=== PATIENT | female | born 1975 | race Caucasian/White ===

== ENCOUNTER → 2019-09-30 09:44 | Outpatient (CLI) | payer OTHER, MEDICAID, SELFPAY ==
--- NOTE | 2019-09-30 | DI.MG.S_ITS ---
BILATERAL DIGITAL SCREENING MAMMOGRAM 3D/2D WITH CAD: 09/30/2019 CLINICAL: Baseline exam. Routine screening. No prior exams were available for comparison. There are scattered fibroglandular elements in both breasts. Current study was also evaluated with a Computer Aided Detection (CAD) system. There is an oval asymmetry with an obscured and circumscribed margin in the left breast posterior depth medial region seen on the craniocaudal view only. No other significant masses, calcifications, or other findings are seen in either breast. IMPRESSION: INCOMPLETE: NEEDS ADDITIONAL IMAGING EVALUATION The oval asymmetry in the left breast is indeterminate. Additional views with possible ultrasound are recommended. This exam was interpreted at Station ID: [id number]. NOTE: For mammograms, a report in lay terms will be sent to the patient. Approximately 15% of breast malignancies will not be visualized mammographically. In the management of a palpable breast mass, a negative mammogram must not discourage biopsy of a clinically suspicious lesion. Electronically Signed By: Kanika forbes/chely:09/30/2019 19:08:27 letter sent: Additional Imaging Needed ACR BI-RADS Category 0: Incomplete 3340F
== END ==
PROVIDERS: Family Provider Family Medicine; PCP Family Medicine; Visit Provider Family Medicine
DX: Z12.31 Encounter for screening mammogram for malignant neoplasm of breast (principal)
CPT/HCPCS: 77063; 77067

== ENCOUNTER → 2019-10-05 14:45 | Outpatient (CLI) | payer OTHER, MEDICAID, SELFPAY ==
[2019-10-05 16:46] LABS: Add Manual Diff / Slide Review NO; Basophils Absolute Auto 100 /uL (0-100); Basophils Percent Auto 0.5 % (0-2); Eosinophils Absolute Auto 400 /uL (0-450); Eosinophils Percent Auto 3.9 % (2-4); Hematocrit 43.1 % (36-46); Hemoglobin 14.7 g/dL (12.0-16.0); Lymphocytes Absolute Auto 2100 /uL (1100-4500); Lymphocytes Percent Auto 22.8 % (25-40); Mean Corpuscular HGB Conc 34.1 % (30-36); Mean Corpuscular Hemoglobin 31.3 PG (26-34); Mean Corpuscular Volume 91.8 fL (80-100); Monocytes Absolute Auto 500 /uL (0-900); Monocytes Percent Auto 5.5 % (3-14); Neutrophils Absolute Auto 6200 /uL (1500-7000); Neutrophils Percent Auto 67.3 % (50-75); Platelet Count 212 X10^3/uL (150-400); Red Cell Distribution Width 13.7 % (11.6-14.8); White Blood Cell Count 9.3 X10^3/uL (4.5-11.0)
[2019-10-05 16:56] LABS: Alanine Aminotransferase 18 IU/L (<35); Albumin 4.5 g/dL (3.5-5.0); Albumin Globulin Ratio 1.4 (1.0-2.8); Alkaline Phosphatase 65 U/L (38-126); Aspartate Aminotransferase 27 IU/L (14-36); BUN Creatinine Ratio 11.3 (6-22); Bilirubin Total 0.3 mg/dL (0.2-1.3); Blood Urea Nitrogen 9 mg/dL (7-17); Calcium 9.5 mg/dL (8.4-10.2); Carbon Dioxide 25 mmol/L (22-32); Chloride 103 mmol/L (98-107); Estimated Glomerular Filt Rate > 60.0 mL/min (>60); Globulin 3.3 g/dL (1.7-4.1); Glucose 93 mg/dL (70-100); HEMOLYSIS < 15 (0-50); Potassium 4.1 mmol/L (3.4-5.1); Sodium 139 mmol/L (137-145); Total Protein 7.8 g/dL (6.3-8.2)
[2019-10-05 17:12] LABS: Follicle Stimulating Hormone 5.19 mIU/mL; Luteinizing Hormone 3.92 mIU/mL
[2019-10-05 17:25] LABS: Bacteria Urine None Seen; RBC Urine None Seen (0-5/HPF)
[2019-10-05 17:26] LABS: Thyroid Stimulating Hormone 1.82 uIU/mL (0.47-4.68)
[2019-10-05 17:46] LABS: Appearance Urine UA CLEAR; Bilirubin Urine UA NEGATIVE (NEGATIVE); Color Urine UA YELLOW; Glucose Urine UA NEGATIVE (Negative); Ketones Urine UA NEGATIVE (NEGATIVE); Leukocyte Esterase Urine UA NEGATIVE (NEGATIVE); Nitrite Urine UA NEGATIVE (Negative); Occult Blood Urine UA NEGATIVE (Negative); Protein Urine UA NEGATIVE (Negative); Specific Gravity Urine UA <=1.005 (1.000-1.035); Urobilinogen Urine UA 0.2 E.U./dL (0.2)
[2019-10-05 18:01] LABS: Culture Indicated Urine Cult Not Indicated; Squamous Epithelial Cell Urine 0-1 /HPF (0-5/HPF); WBC Urine 0-1/HPF (0-5/HPF)
== END ==
PROVIDERS: Family Provider Family Medicine; PCP Family Medicine; Referring Provider Family Medicine; Visit Provider Family Medicine
DX: R53.83 Other fatigue (principal); R39.89 Other symptoms and signs involving the genitourinary system
CPT/HCPCS: 36415; 80053; 81001; 82533; 83001; 83002; 84146; 84443; 85025

== ENCOUNTER → 2019-10-14 10:02 | Outpatient (CLI) | payer OTHER, MEDICAID, SELFPAY ==
--- NOTE | 2019-10-14 | DI.MG.S_ITS ---
UNILATERAL LEFT DIGITAL DIAGNOSTIC MAMMOGRAM 3D/2D WITH ADDITIONAL VIEWS: 10/14/2019 CLINICAL: Additional evaluation requested from prior study. Comparison is made to exam dated: 09/30/2019 mammogram - [facility]. There are scattered fibroglandular elements in left breast. The asymmetry in the left breast posterior depth medial region seen on the craniocaudal view only is not seen in additional views. No other significant masses or calcifications are seen in the breast. IMPRESSION: There is no mammographic evidence of malignancy. A 1 year screening mammogram is recommended. This exam was interpreted at Station ID: [id number]. NOTE: For mammograms, a report in lay terms will be sent to the patient. Approximately 15% of breast malignancies will not be visualized mammographically. In the management of a palpable breast mass, a negative mammogram must not discourage biopsy of a clinically suspicious lesion. Electronically Signed By: Elsie Canada M.D. lk/:10/14/2019 10:31:09 letter sent: Normal Exam ACR BI-RADS Category 2: Benign Finding(s) 3342F
== END ==
PROVIDERS: Family Provider Family Medicine; PCP Family Medicine; Referring Provider Family Medicine; Visit Provider Family Medicine
DX: R92.8 Other abnormal and inconclusive findings on diagnostic imaging of breast (principal)
CPT/HCPCS: 77065; G0279

== ENCOUNTER → 2020-11-28 11:49 | Outpatient (CLI) | payer OTHER, MEDICAID, SELFPAY ==
--- NOTE | 2020-11-28 | DI.MG.S_ITS ---
BILATERAL DIGITAL SCREENING MAMMOGRAM 3D/2D WITH CAD: 11/28/2020 CLINICAL: Routine screening. Comparison is made to exams dated: 10/14/2019 mammogram and 09/30/2019 mammogram - . There are scattered fibroglandular elements in both breasts. Current study was also evaluated with a Computer Aided Detection (CAD) system. There is an oval equal density asymmetry with an obscured and circumscribed margin in the left breast posterior depth medial region seen on the craniocaudal view only. This is more prominent. No other significant masses, calcifications, or other findings are seen in either breast. IMPRESSION: INCOMPLETE: NEEDS ADDITIONAL IMAGING EVALUATION The oval equal density asymmetry in the left breast is indeterminate. Spot compression, cleavage, and lateromedial views as well as additional views with possible ultrasound are recommended. This exam was interpreted at Station ID: [id number]. NOTE: For mammograms, a report in lay terms will be sent to the patient. Approximately 15% of breast malignancies will not be visualized mammographically. In the management of a palpable breast mass, a negative mammogram must not discourage biopsy of a clinically suspicious lesion. Electronically Signed By: Gilmar Fischer M.D. ddvan/:11/28/2020 15:12:42 letter sent: Additional Imaging Needed ACR BI-RADS Category 0: Incomplete 3340F
== END ==
PROVIDERS: Family Provider Family Medicine; PCP Family Medicine; Referring Provider Family Medicine; Visit Provider Family Medicine
DX: Z12.31 Encounter for screening mammogram for malignant neoplasm of breast (principal)
CPT/HCPCS: 77063; 77067

== ENCOUNTER → 2020-12-05 09:35 | Outpatient (CLI) | payer OTHER, MEDICAID, SELFPAY ==
[2020-12-05 10:17] LABS: Hematocrit 40.1 % (36-46); Hemoglobin 13.3 g/dL (12.0-16.0); Mean Corpuscular HGB Conc 33.2 % (30-36); Mean Corpuscular Volume 93.3 fL (80-100); Platelet Count 177 X10^3/uL (150-400); Red Cell Distribution Width 13.4 % (11.6-14.8); White Blood Cell Count 8.7 X10^3/uL (4.5-11.0)
[2020-12-05 10:44] LABS: Alanine Aminotransferase 12 IU/L (<35); Albumin 3.8 g/dL (3.5-5.0); Albumin Globulin Ratio 1.3 (1.0-2.8); Alkaline Phosphatase 53 U/L (38-126); Aspartate Aminotransferase 22 IU/L (14-36); BUN Creatinine Ratio 13.3 (6-22); Bilirubin Total 0.2 mg/dL (0.2-1.3); Blood Urea Nitrogen 10 mg/dL (7-17); Calcium 8.6 mg/dL (8.4-10.2); Carbon Dioxide 25 mmol/L (22-32); Chloride 104 mmol/L (98-107); Estimated Glomerular Filt Rate > 60.0 mL/min (>60); Glucose 93 mg/dL (70-100); HEMOLYSIS < 15 (0-50); Potassium 3.6 mmol/L (3.4-5.1); Sodium 135 mmol/L (137-145); Total Protein 6.8 g/dL (6.3-8.2)
== END ==
PROVIDERS: Family Provider Family Medicine; PCP Family Medicine; Referring Provider Family Medicine; Visit Provider Family Medicine
DX: Z13.9 Encounter for screening, unspecified (principal)
CPT/HCPCS: 36415; 80053; 85027

== ENCOUNTER → 2020-12-19 09:19 | Outpatient (CLI) | payer OTHER, MEDICAID, SELFPAY ==
--- NOTE | 2020-12-19 | DI.MG.S_ITS ---
UNILATERAL LEFT DIGITAL DIAGNOSTIC MAMMOGRAM 3D/2D WITH ADDITIONAL VIEWS: 12/19/2020 CLINICAL: Additional evaluation requested from prior study. Comparison is made to exams dated: 11/28/2020 mammogram, 10/14/2019 mammogram, and 09/30/2019 mammogram - [facility]. There are scattered fibroglandular elements in left breast. There is an oval fat containing asymmetry with a circumscribed margin in the left breast posterior depth medial region seen on the craniocaudal view only. No other significant masses or calcifications are seen in the breast. IMPRESSION: INCOMPLETE: NEEDS ADDITIONAL IMAGING EVALUATION The oval fat containing asymmetry in the left breast has the appearance of the sternalis muscle with variable visualization on mammograms. A targeted ultrasound is recommended and will immediately follow. This exam was interpreted at Station ID: [id number]. NOTE: For mammograms, a report in lay terms will be sent to the patient. Approximately 15% of breast malignancies will not be visualized mammographically. In the management of a palpable breast mass, a negative mammogram must not discourage biopsy of a clinically suspicious lesion. Electronically Signed By: David Greene M.D. slc/:12/19/2020 10:41:44 ACR BI-RADS Category 0: Incomplete 3340F
--- NOTE | 2020-12-19 09:20 | DI.US.S_ITS ---
LIMITED ULTRASOUND OF LEFT BREAST: 12/19/2020 CLINICAL: Patient returns today to evaluate an asymmetry in left breast. Comparison is made to exams dated: 12/19/2020 mammogram, 11/28/2020 mammogram, 10/14/2019 mammogram, and 09/30/2019 mammogram - [facility]. Real-time ultrasound of the left breast 9 o'clock region was performed. Burnett scale images of the real-time examination were reviewed. No mass in the medial left breast. IMPRESSION: BENIGN There is no sonographic evidence of malignancy. No mass in the medial breast. Mammographic findings in keeping with the sternalis muscle, variant anatomy. A 1 year screening mammogram is recommended. Exam findings were conveyed to the patient. This exam was interpreted at Station ID: [id number]. Electronically Signed By: David Greene M.D. slc/:12/19/2020 11:09:14 letter sent: Normal Exam Ultrasound BI-RADS: 2 Benign
== END ==
PROVIDERS: Family Provider Family Medicine; PCP Family Medicine; Referring Provider Family Medicine; Visit Provider Family Medicine
DX: R92.8 Other abnormal and inconclusive findings on diagnostic imaging of breast (principal); N64.89 Other specified disorders of breast
CPT/HCPCS: 76642; 77065; G0279

== ENCOUNTER → 2021-10-17 10:36 | Outpatient (CLI) | payer OTHER, MEDICAID, SELFPAY ==
[2021-10-17 12:23] LABS: Add Manual Diff / Slide Review NO; Basophils Absolute Auto 0 /uL (0-100); Basophils Percent Auto 0.5 % (0-2); Eosinophils Absolute Auto 400 /uL (0-450); Hematocrit 40.3 % (36-46); Hemoglobin 13.7 g/dL (12.0-16.0); Lymphocytes Absolute Auto 1600 /uL (1100-4500); Lymphocytes Percent Auto 22.3 % (25-40); Mean Corpuscular HGB Conc 33.9 % (30-36); Mean Corpuscular Hemoglobin 31.2 PG (26-34); Monocytes Absolute Auto 400 /uL (0-900); Monocytes Percent Auto 4.8 % (3-14); Neutrophils Absolute Auto 4900 /uL (1500-7000); Neutrophils Percent Auto 66.4 % (50-75); Platelet Count 144 X10^3/uL (150-400); Red Blood Cell Count 4.38 X10^6/uL (4.0-5.2); Red Cell Distribution Width 13.2 % (11.6-14.8); White Blood Cell Count 7.3 X10^3/uL (4.5-11.0)
[2021-10-17 13:01] LABS: Alanine Aminotransferase 26 IU/L (<35); Albumin 4.1 g/dL (3.5-5.0); Albumin Globulin Ratio 1.3 (1.0-2.8); Alkaline Phosphatase 51 U/L (38-126); Aspartate Aminotransferase 35 IU/L (14-36); Bilirubin Total 0.4 mg/dL (0.2-1.3); Blood Urea Nitrogen 9 mg/dL (7-17); Calcium 8.8 mg/dL (8.4-10.2); Carbon Dioxide 25 mmol/L (22-32); Chloride 107 mmol/L (98-107); Cholesterol 179 mg/dL (140-199); Estimated Glomerular Filt Rate > 60.0 mL/min (>60); Globulin 3.1 g/dL (1.7-4.1); Glucose 92 mg/dL (70-100); HDL Cholesterol 82 mg/dL (40-60); HEMOLYSIS < 15 (0-50); LDL Cholesterol Calculated 64 mg/dL (<100); Potassium 4.1 mmol/L (3.4-5.1); Sodium 136 mmol/L (137-145); Total Protein 7.2 g/dL (6.3-8.2); Triglycerides 163 mg/dL (35-150)
[2021-10-17 13:28] LABS: TSH w/ Reflex to FT4 1.26 uIU/mL (0.47-4.68)
== END ==
PROVIDERS: Family Provider Family Medicine; PCP Family Medicine; Referring Provider Family Medicine; Visit Provider Family Medicine
DX: R03.0 Elevated blood-pressure reading, without diagnosis of hypertension (principal); R53.83 Other fatigue; Z00.00 Encounter for general adult medical examination without abnormal findings; Z13.29 Encounter for screening for other suspected endocrine disorder; Z13.220 Encounter for screening for lipoid disorders
CPT/HCPCS: 36415; 80053; 80061; 84443; 85025

== ENCOUNTER → 2021-10-23 13:48 | Outpatient (CLI) | payer OTHER, MEDICAID, SELFPAY ==
--- NOTE | 2021-10-23 13:49 | DI.RAD.S_ITS ---
PROCEDURE: XR LUMBAR SPINE 2-3V INDICATIONS: Chronic low back pain, progressive TECHNIQUE: 3 views of the lumbar spine were acquired. COMPARISON: [facility], , L-SPINE 2-3 VIEWS, 09/24/2012, 18:42. FINDINGS: Bones: 5 [id number] vertebrae are present. Mild S-shaped curvature of the thoracolumbar spine. Multilevel disc degeneration, most notably and moderate at the L3-L4 and L5-S1 levels. Moderate L4-L5 and L5-S1 facet joint arthropathy. No vertebral body compression fractures. No suspicious bony lesions. Soft tissues: Overlying bowel gas pattern is normal. No suspicious soft tissue calcifications. Right lower quadrant surgical clips. IMPRESSION: Multilevel spondylosis, most notably with moderate disc degeneration at the L3-L4 and L5-S1 levels. Dictated by: Josr Lynn [facility] Interpreted: Mirza Connell MD on 10/23/2021 at 14:06 Approved by: Mirza Connell M.D. on 10/23/2021 at 17:23
== END ==
PROVIDERS: Family Provider Family Medicine; PCP Family Medicine; Referring Provider Family Medicine; Visit Provider Family Medicine
DX: M47.816 Spondylosis without myelopathy or radiculopathy, lumbar region (principal); M51.36 Other intervertebral disc degeneration, lumbar region; M47.817 Spondylosis without myelopathy or radiculopathy, lumbosacral region; M51.37 Other intervertebral disc degeneration, lumbosacral region; R03.0 Elevated blood-pressure reading, without diagnosis of hypertension; G89.29 Other chronic pain
CPT/HCPCS: 72100

== ENCOUNTER → 2021-12-12 13:27 | Outpatient (CLI) | payer OTHER, MEDICAID, SELFPAY ==
--- NOTE | 2021-12-12 13:29 | DI.US.S_ITS ---
LIMITED ULTRASOUND OF RIGHT BREAST: 12/12/2021 CLINICAL: Palpable right breast lump. Comparison is made to exams dated: 12/12/2021 mammogram, 11/28/2020 mammogram, and 09/30/2019 mammogram - . Real-time ultrasound of the right breast lower outer quadrant was performed. Burnett scale images of the real-time examination were reviewed. No significant abnormalities were seen sonographically in the right breast in the region of the palpable abnormality. IMPRESSION: NEGATIVE There is no sonographic evidence of malignancy. A 1 year screening mammogram is recommended. Exam findings were conveyed to the patient. Patient is advised to monitor for significant change. Clinical follow-up as needed. This exam was interpreted at Station ID: [id number]. Electronically Signed By: David Greene M.D. slc/:12/12/2021 14:38:03 letter sent: Normal Exam Ultrasound BI-RADS: 1 Negative
--- NOTE | 2021-12-12 13:29 | DI.MG.S_ITS ---
BILATERAL DIGITAL DIAGNOSTIC MAMMOGRAM 3D/2D: 12/12/2021 CLINICAL: Right breast lump. Comparison is made to exams dated: 12/19/2020 mammogram, 11/28/2020 mammogram, and 09/30/2019 mammogram - [facility]. There are scattered fibroglandular elements in both breasts. No significant masses, calcifications, or other findings are seen in either breast. IMPRESSION: INCOMPLETE: NEEDS ADDITIONAL IMAGING EVALUATION No mammographic evidence of malignancy. A targeted ultrasound of the right breast palpable abnormality is recommended and will immediately follow. This exam was interpreted at Station ID: [id number]. NOTE: For mammograms, a report in lay terms will be sent to the patient. Approximately 15% of breast malignancies will not be visualized mammographically. In the management of a palpable breast mass, a negative mammogram must not discourage biopsy of a clinically suspicious lesion. Electronically Signed By: David Greene M.D. slc/:12/12/2021 13:59:19 ACR BI-RADS Category 0: Incomplete 3340F
== END ==
PROVIDERS: Family Provider Family Medicine; PCP Family Medicine; Referring Provider Family Medicine; Visit Provider Family Medicine
DX: N63.10 Unspecified lump in the right breast, unspecified quadrant; R92.2 Inconclusive mammogram
CPT/HCPCS: 76642; 77066; G0279

== ENCOUNTER → 2021-12-19 10:53 | Outpatient (CLI) | payer OTHER, MEDICAID, SELFPAY ==
--- NOTE | 2021-12-19 10:55 | DI.US.S_ITS ---
PROCEDURE: US PELVIC COMPLETE INDICATIONS: DYSMENORRHEA, PELVIC PAIN TECHNIQUE: Real-time scanning was performed of the pelvic organs, with image documentation. Additional endovaginal scanning was necessary due to incomplete visualization of the adnexal and endometrial structures by transabdominal scanning. COMPARISON: None. FINDINGS: Uterus: Uterus is retroverted and measures 8.7 x 4 x 5.8 cm. The myometrium is heterogeneous. The endometrium measures 12.7 mm combined thickness. Arcuate versus septate appearance of the uterus. A 1.6 x 0.9 x 1.5 cm predominantly isoechoic lesion is seen in the left posterior uterus, compatible with a submucosal fibroid. Multiple hypoechoic lesions in the cervix, compatible with nabothian cysts. Ovaries: The right ovary measures 3.8 x 2.5 x 2.6 cm. The left ovary measures 3.1 x 1.4 x 2 cm. The ovaries have a normal sonographic appearance. A hypoechoic lesion is seen in the right ovary with internal echoes, which may reflect a hemorrhagic cyst. A thick-walled hypoechoic lesion is seen in the left ovary, which may reflect a corpus luteum. Other: No pathologic free abdominal or pelvic fluid. IMPRESSION: Thick-walled hypoechoic lesion in the left ovary as detailed above, which may reflect a corpus luteum. Consider sonographic follow-up in 4-6 weeks to ensure stability or decrease in size. We strive to produce accurate, complete, and clear reports of imaging services. To assist us in improving patient care, this report was composed using standard report templates and voice recognition software. Therefore, it may contain abnormal punctuation, insertions and/or omissions. Occasional wrong-word or sound-alike substitutions may occur. Though we review the report and make efforts to correct it, we do recommend that the report be read carefully in proper context to recognize any text inaccuracies. Dictated by: Shaq Chapa M.D. on 12/19/2021 at 13:02 Approved by: Shaq Chapa M.D. on 12/19/2021 at 13:07
== END ==
PROVIDERS: Family Provider Family Medicine; PCP Family Medicine; Referring Provider Family Medicine; Visit Provider Family Medicine
DX: N94.6 Dysmenorrhea, unspecified (principal); N83.9 Noninflammatory disorder of ovary, fallopian tube and broad ligament, unspecified; R10.2 Pelvic and perineal pain
CPT/HCPCS: 76830; 76856

== ENCOUNTER → 2022-01-31 11:02 | Outpatient (CLI) | payer OTHER, MEDICAID, SELFPAY ==
--- NOTE | 2022-01-31 | DI.US.S_ITS ---
PROCEDURE: US PELVIC COMPLETE INDICATIONS: 4-6 WEEK RECHECK OF LEFT OVARIAN LESION TECHNIQUE: Real-time scanning was performed of the pelvic organs, with image documentation. Additional endovaginal scanning was necessary due to incomplete visualization of the adnexal and endometrial structures by transabdominal scanning. COMPARISON: [facility], US, US PELVIC COMPLETE, 12/19/2021, 11:28. FINDINGS: Uterus: Uterus is retroverted and normal in size at 9 x 6.8 x 4.9 cm. The myometrium is homogeneous. The endometrium measures 7 mm combined thickness. Incidental note is made of nabothian cysts. There is a 1.7 cm submucosal fibroid seen on the left posteriorly, which is similar to the prior. Ovaries: The right ovary measures 4.5 x 4.1 x 3 9 cm. Within the right ovary, there is an anechoic focus that measures 4 x 3.4 x 3.8 cm, which previously measured 2.2 x 2.3 x 1.9 cm. A daughter cyst can be seen, as on image 41. The left ovary measures 2.6 x 2.1 x 1.7 cm. Within the left ovary, there is a thick walled anechoic focus that currently measures 1.5 x 1.2 x 1 cm, which previously measured 1 5 by cm. No adnexal masses are seen. Other: No pathologic free abdominal or pelvic fluid. IMPRESSION: Thick-walled left ovarian cyst not significantly changed compared to prior examination. Right ovarian anechoic focus seen that measures 4 cm, which is slightly increased in size compared to the prior examination. In a patient of this age, these lesions are almost certainly benign. If it would be clinically appropriate, an additional followup pelvic ultrasound could be considered in 6 weeks to assure resolution/ improvement. We strive to produce accurate, complete, and clear reports of imaging services. To assist us in improving patient care, this report was composed using standard report templates and voice recognition software. Therefore, it may contain abnormal punctuation, insertions and/or omissions. Occasional wrong-word or sound-alike substitutions may occur. Though we review the report and make efforts to correct it, we do recommend that the report be read carefully in proper context to recognize any text inaccuracies. Dictated by: Elijah Blackmon M.D. on 01/31/2022 at 11:40 Approved by: Elijah Blackmon M.D. on 01/31/2022 at 11:43
== END ==
PROVIDERS: Family Provider Family Medicine; PCP Family Medicine; Referring Provider Family Medicine; Visit Provider Family Medicine
DX: N83.202 Unspecified ovarian cyst, left side (principal); N83.9 Noninflammatory disorder of ovary, fallopian tube and broad ligament, unspecified
CPT/HCPCS: 76856

== ENCOUNTER → 2022-04-17 12:12 | Outpatient (CLI) | payer OTHER, MEDICAID, SELFPAY ==
--- NOTE | 2022-04-17 12:14 | DI.US.S_ITS ---
PROCEDURE: US PELVIC COMPLETE INDICATIONS: PAIN; FOLLOW-UP OVARIAN CYSTS LMP is 04/10/2022 TECHNIQUE: Real-time scanning was performed of the pelvic organs, with image documentation. Additional endovaginal scanning was necessary due to incomplete visualization of the adnexal and endometrial structures by transabdominal scanning. COMPARISON: [facility], US, US PELVIC COMPLETE, 01/31/2022, 12:13. FINDINGS: Uterus: Uterus is retroverted measuring 7.6 x 5.6 x 7.1 cm. IUD is in place. Endometrium measures 11 mm. Left posterior intramural fibroid measuring 1.8 x 1.2 x 2.0 cm. Cervix is within normal limits. Ovaries: Right ovary measures 2.5 x 1.1 x 1.3 cm. Left ovary measures 4.3 x 2.2 x 2.1 cm. Dominant follicle in the left ovary measuring 1.7 x 1.0 x 1.4 cm. Other: No pathologic free fluid. IMPRESSION: Pelvic ultrasound within normal limits for age. IUD in place. Left posterior intramural fibroid measuring up to 2 cm. We strive to produce accurate, complete, and clear reports of imaging services. To assist us in improving patient care, this report was composed using standard report templates and voice recognition software. Therefore, it may contain abnormal punctuation, insertions and/or omissions. Occasional wrong-word or sound-alike substitutions may occur. Though we review the report and make efforts to correct it, we do recommend that the report be read carefully in proper context to recognize any text inaccuracies. Dictated by: Zoran Cordero M.D. on 04/17/2022 at 14:48 Approved by: Zoran Cordero M.D. on 04/17/2022 at 14:51
== END ==
PROVIDERS: Family Provider Family Medicine; PCP Family Medicine; Referring Provider Obstetrics & Gynecology; Visit Provider Obstetrics & Gynecology
DX: D25.1 Intramural leiomyoma of uterus (principal); N83.209 Unspecified ovarian cyst, unspecified side; R10.2 Pelvic and perineal pain; G89.29 Other chronic pain; Z97.5 Presence of (intrauterine) contraceptive device
CPT/HCPCS: 76830; 76856

== ENCOUNTER → 2022-12-31 13:51 | Outpatient (CLI) | payer OTHER, MEDICAID, SELFPAY ==
--- NOTE | 2022-12-31 13:53 | DI.RAD.S_ITS ---
PROCEDURE: XR LUMBAR SPINE MIN 4V INDICATIONS: Eval low back pain TECHNIQUE: 5 views of the lumbar spine were acquired, including bilateral oblique views. COMPARISON: [facility], , XR LUMBAR SPINE 2-3V, 10/23/2021, 13:46. FINDINGS: Bones: 5 nonrib-bearing vertebrae are present. There is normal bony alignment. There is diffuse mild intervertebral disc space narrowing, endplate sclerosis, osteophytosis and facet sclerosis. No vertebral body compression fractures. No suspicious bony lesions. Soft tissues: Overlying bowel gas pattern is normal. No suspicious soft tissue calcifications. An IUD is projected over the pelvis. Oblique images: No pars defects. IMPRESSION: Moderate degenerative change as above. No spondylolysis or spondylolisthesis. Dictated by: Elsie Canada M.D. on 12/31/2022 at 17:09 Approved by: Elsie Canada M.D. on 12/31/2022 at 17:11
== END ==
PROVIDERS: Family Provider Family Medicine; PCP Family Medicine; Referring Provider Family Medicine; Visit Provider Family Medicine
DX: M54.50 Low back pain, unspecified (principal); G89.29 Other chronic pain; M47.816 Spondylosis without myelopathy or radiculopathy, lumbar region
CPT/HCPCS: 72110

== ENCOUNTER → 2023-06-05 09:19 | Outpatient (CLI) | payer OTHER, MEDICAID, SELFPAY ==
[2023-06-05 10:56] LABS: Add Manual Diff / Slide Review NO; Basophils Absolute Auto 100 /uL (0-100); Basophils Percent Auto 0.7 % (0-2); Eosinophils Absolute Auto 300 /uL (0-450); Eosinophils Percent Auto 3.7 % (2-4); Hematocrit 41.6 % (36-46); Hemoglobin 13.9 g/dL (12.0-16.0); Lymphocytes Absolute Auto 2200 /uL (1100-4500); Lymphocytes Percent Auto 27.4 % (25-40); Mean Corpuscular HGB Conc 33.5 % (30-36); Mean Corpuscular Hemoglobin 32.2 PG (26-34); Mean Corpuscular Volume 96.2 fL (80-100); Monocytes Absolute Auto 500 /uL (0-900); Monocytes Percent Auto 6.2 % (3-14); Neutrophils Absolute Auto 4900 /uL (1500-7000); Platelet Count 168 X10^3/uL (150-400); Red Blood Cell Count 4.33 X10^6/uL (4.0-5.2); Red Cell Distribution Width 13.3 % (11.6-14.8); White Blood Cell Count 7.9 X10^3/uL (4.5-11.0)
[2023-06-05 11:15] LABS: Alanine Aminotransferase 25 IU/L (<35); Albumin 3.9 g/dL (3.5-5.0); Albumin Globulin Ratio 1.3 (1.0-2.8); Alkaline Phosphatase 55 U/L (38-126); Aspartate Aminotransferase 30 IU/L (14-36); BUN Creatinine Ratio 9.6 (6-22); Bilirubin Total 0.5 mg/dL (0.2-1.3); Blood Urea Nitrogen 7 mg/dL (7-17); Carbon Dioxide 25 mmol/L (22-32); Chloride 105 mmol/L (98-107); Cholesterol 177 mg/dL (140-199); Estimated Glomerular Filt Rate > 60 mL/min (>60); Globulin 2.9 g/dL (1.7-4.1); Glucose 86 mg/dL (70-100); HDL Cholesterol 84 mg/dL (40-60); HEMOLYSIS 16 (0-50); LDL Cholesterol Calculated 61 mg/dL (<100); Potassium 4.3 mmol/L (3.4-5.1); Sodium 135 mmol/L (137-145); Total Protein 6.8 g/dL (6.3-8.2); Triglycerides 161 mg/dL (35-150)
[2023-06-06 10:39] LABS: Fecal Immunochemical Test Negative (Negative)
== END ==
PROVIDERS: Family Provider Family Medicine; PCP Student in an Organized Health Care Education/Training Program
DX: R53.83 Other fatigue (principal); I10 Essential (primary) hypertension; Z12.11 Encounter for screening for malignant neoplasm of colon
CPT/HCPCS: 36415; 80053; 80061; 82274; 85025

== ENCOUNTER → 2023-06-13 15:36 | Outpatient (CLI) | payer OTHER, MEDICAID, SELFPAY ==
--- NOTE | 2023-06-13 15:37 | DI.MG.S_ITS ---
BILATERAL DIGITAL SCREENING MAMMOGRAM 3D/2D WITH CAD: 06/13/2023 CLINICAL: Routine screening. Comparison is made to exams dated: 12/12/2021 mammogram, 11/28/2020 mammogram, and 09/30/2019 mammogram - [facility]. There are scattered areas of fibroglandular density in both breasts (category b / 25%-50% glandular tissue). Current study was also evaluated with a Computer Aided Detection (CAD) system. No significant masses, calcifications, or other findings are seen in either breast. There has been no significant interval change. IMPRESSION: NEGATIVE There is no mammographic evidence of malignancy. A 1 year screening mammogram is recommended. Based on the Tyrer Cuzick model (a risk assessment model) the patient's lifetime risk is 6.1% and her 10 year risk is 1.2%. According to the ACR, ACS, and NCCN guidelines, an annual breast MRI exam along with mammogram is recommended if the patient's lifetime risk is 20% or greater. This exam was interpreted at Station ID: [id number]. NOTE: For mammograms, a report in lay terms will be sent to the patient. Approximately 15% of breast malignancies will not be visualized mammographically. In the management of a palpable breast mass, a negative mammogram must not discourage biopsy of a clinically suspicious lesion. Electronically Signed By: Elsie lara/chely:06/14/2023 12:54:58 letter sent: Normal Exam ACR BI-RADS Category 1: Negative 3341F
== END ==
PROVIDERS: Family Provider Family Medicine; PCP Student in an Organized Health Care Education/Training Program; Referring Provider Student in an Organized Health Care Education/Training Program; Visit Provider Student in an Organized Health Care Education/Training Program
DX: Z12.31 Encounter for screening mammogram for malignant neoplasm of breast (principal)
CPT/HCPCS: 77063; 77067

== ENCOUNTER → 2023-08-27 10:47 | Outpatient (CLI) | payer OTHER, MEDICAID, SELFPAY ==
--- NOTE | 2023-08-27 10:47 | DI.MRI.S_ITS ---
PROCEDURE: MR LUMBAR SPINE WO CON INDICATIONS: Low back pain with sciatica TECHNIQUE: Noncontrast sagittal T1 spin echo and T2 fast echo, sagittal STIR, and T2 fast spin echo through the lumbar spine. In cases with scoliosis, additional coronal T2 fast spin echo may be performed. COMPARISON: None. FINDINGS: Image quality: Excellent. Alignment and Curvature: There is normal bony alignment. Bone Marrow: Marrow is of normal overall signal. No acute vertebral body compression fractures. Spinal Cord: Conus medullaris terminates at the T12-L1 level. Visualized cord demonstrates normal signal and size. Paraspinous Soft Tissues: No paravertebral masses. T12-L1: Very minimal shallow left paracentral disc protrusion without impingement on nerve root structures. No canal stenosis or foraminal stenosis. L1-L2: Very mild left facet hypertrophy. Minimal disc bulge. No canal stenosis or foraminal stenosis. L2-L3: Disc bulge. Mild facet hypertrophy. No significant canal stenosis or foraminal stenosis. L3-L4: Chronic disc height loss. Disc bulge. Facet hypertrophy. Mild canal stenosis. [id number] left foraminal stenosis. L4-L5: Mild chronic disc height loss. Disc bulge. Facet hypertrophy. Mild canal stenosis. [id number] right foraminal stenosis. L5-S1: Disc bulge. Facet hypertrophy. No canal stenosis. Orsk-cc-ciqanakm right foraminal narrowing. Mild left foraminal narrowing. IMPRESSION: 1 period there is underlying multilevel facet arthropathy. 2. There is mild canal stenosis at L3-L4 and L4-L5. 3. Multilevel foraminal narrowing as described above. There is no foraminal nerve root impingement noted. Dictated by: Michael Hill M.D. on 08/27/2023 at 13:15 Approved by: Michael Hill M.D. on 08/27/2023 at 13:23
== END ==
PROVIDERS: Family Provider Family Medicine; PCP Student in an Organized Health Care Education/Training Program; Referring Provider Student in an Organized Health Care Education/Training Program; Visit Provider Student in an Organized Health Care Education/Training Program
DX: M54.40 Lumbago with sciatica, unspecified side (principal); M47.816 Spondylosis without myelopathy or radiculopathy, lumbar region; M47.817 Spondylosis without myelopathy or radiculopathy, lumbosacral region; M48.061 Spinal stenosis, lumbar region without neurogenic claudication; M48.07 Spinal stenosis, lumbosacral region
CPT/HCPCS: 72148

== ENCOUNTER 2023-10-14 13:00 | Outpatient (RCR) | payer OTHER, MEDICAID, SELFPAY ==
--- NOTE | 2023-06-27 13:10 | PT.OIE ---
Current Diagnoses Other chronic pain (06/27/23) Low back pain, unspecified (06/27/23) Past Medical History (Last Reviewed 01/14/23 @ 14:43 by Manoj Newman DO) Borderline hypertension Breast mass, left Chronic low back pain Dysmenorrhea Encounter for well adult exam without abnormal findings Fatigue Lumbar strain Ovarian cyst Past Surgical History (Last Reviewed 01/14/23 @ 14:43 by Manoj Newman DO) Status post appendectomy (09/14/13) Visit Care Team Role Provider Type Manoj Newman DO Family Provider Physician Specialty: Family Practice Address: [address] [place] [address] Email: [email or web address] Venita Anderson MD Attending Provider Physician Primary Care Provider Referring Provider Specialty: Family Practice Obstetrics Address: [address] [place] [address], [facility] Email: [email or web address] Physical Therapy Initial Evaluation PT-OP-A Visit Information Start: 06/27/23 09:46 Freq: Status: Active Protocol: Document 06/27/23 12:56 ED (Rec: 06/27/23 13:10 ED [id number]) Out-Patient Physical Therapy Visit Information Visit Information Visit Type Initial Evaluation Visit Start Time 09:55 Visit Stop Time 10:30 Total Visit Minutes 35 Visit Number 1 Evaluation Information Evaluation Date 06/27/23 PT-OP-B Current Condition Start: 06/27/23 09:46 Freq: Status: Active Protocol: Document 06/27/23 12:56 ED (Rec: 06/27/23 13:10 ED [id number]) Current Condition History of Current Condition Onset Date chronic Current Complaints low back pain; R LE radiculopathy History of Current Condition Pt states that she has had on and off again back pain for years. She mentions having significant problems with daily and recreational activities secondary to low back pain and that it makes everything hard. Her pain controls her life and limits what she is able to do. She is no longer working. She mentions having other medical pathologies that don't help her either. She states she has R paresthesia down her R leg into her ankle; it's on the back side of her R LE. She states she can be very high strung and get emotional regarding her pain and other diagnoses. She wants to start taking care of herself and focusing on improving her life . Treatment Goals Patient/Caregiver Goals lose weight and improve confidence PT-OP-C Subjective Start: 06/27/23 09:46 Freq: Status: Active Protocol: Document 06/27/23 12:56 ED (Rec: 06/27/23 13:10 ED [id number]) Patient Questionnaires Oswestry Low Back Index Oswestry Score 22 / 50 = 44.0 % Oswestry Impairment 40 to 59% Impaired (Score 40- 59) OP-PT Pain Assessment Location low back Intensity 5 Scale Used Numeric (0 - 10) Description Aching,Chronic,Dull,Radiating Frequency Frequent Pain Aggravating Factors Position,Changing Position, Activity,Standing,Sitting, Bending,Lifting PT-OP-K Range of Motion Start: 06/27/23 09:46 Freq: Status: Active Protocol: Document 06/27/23 12:56 ED (Rec: 06/27/23 13:10 ED [id number]) Lumbar Spine Range of Motion Lumbar Spine Active Percentage Flexion 100 Extension 100 PT-OP-T Assessment and Plan Start: 06/27/23 09:46 Freq: Status: Active Protocol: Document 06/27/23 12:56 ED (Rec: 06/27/23 13:10 ED [id number]) Physical Therapy Assessment Rehab Potential Rehabilitation Potential Good Evaluation Complexity Number of Personal Factors/Comorbidities 3 or More Number of Body Systems Impaired 1-2 Clinical Presentation at Evaluation Stable Goals lifting Impairment lifting Impairment unable to grape picker 10# from ground Short Term Goal (STG) Pt will be able to grape picker 10# from ground for 10 reps without low back pain STG Duration 4 weeks Grain Elevator Operator Goal (LTG) Pt will be able to grape picker 20# from ground for 10 reps without low back pain. LTG Duration 8 weeks % improvement Impairment % improvement Short Term Goal (STG) Pt will report 15% improvement in symptoms. STG Duration 3 weeks Grain Elevator Operator Goal (LTG) Pt will report 50% improvement in symptoms. LTG Duration 6-8 weeks Oswestry Impairment Oswestry score Impairment IE:22 50 = 44.0 % Grain Elevator Operator Goal (LTG) Pt will improve Oswestry score by >8 points to a score <14/ 50. LTG Duration 6-8 week HEP Impairment HEP Short Term Goal (STG) Pt will report performing HEP >3 days/week. STG Duration 3 weeks Half-Way Goal (LTG) Pt will report performing HEP >3 days/week. LTG Duration 6-8 weeks Assessment Summary Assessment Pt reported to PT for chronic low back pain and R LE radiculopathy. Pt was emotional during initial evaluation and perserverated on how limited her functional mobility is secondary to her back pain. Pt demonstrated fear avoidance behaviors and self limiting thoughts. PT and patient discussed plan of care of gradual exposure to stimuli for her body to slowly improve her confidence and self efficacy. Pt demonstrated understanding of discussion regarding her pain sensitivity and gradual exposure. PT provided initial HEP of : short and frequent walks, hip bridges, UE supported lumbar flexion in sitting position, and prone press ups which she was able to do comfortably today. Physical Therapy Plan Frequency and Duration Frequency of Treatment 2x/Week Duration of treatment (weeks) 10 Plan of Care Start Date 06/27/23 Plan of Care End Date 09/25/23 Therapeutic Interventions Therapeutic Interventions Joint Mobilizations,Manual Therapy,Neuromuscular Re- education,Patient/Caregiver Education,Self-Care/Home Management,Soft Tissue Mobilization,Taping, Therapeutic Activities, Therapeutic Exercises Modalities Hot Packs Next Visit Focus/Plan Next Note Type Treatment Note Next Visit Plan TM/elliptical, PB flexion, press up, child pose, lat pull down, sit<>stand, bridge
--- NOTE | 2023-06-27 13:10 | PT.OPPOC ---
Physical, Occupational & Speech Therapy At [facility] Current Diagnoses Other chronic pain (06/27/23) Low back pain, unspecified (06/27/23) Visit Care Team Role Provider Type Manoj Newman DO Family Provider Physician Specialty: Family Practice Address: [address] [place] [address] Email: Venita Anderson MD Attending Provider Physician Primary Care Provider Referring Provider Specialty: Family Practice Obstetrics Address: [address] [place] [address], [facility] Email: [email or web address] Plan Of Care PT-OP-T Assessment and Plan Start: 06/27/23 09:46 Freq: Status: Active Protocol: Document 06/27/23 12:56 ED (Rec: 06/27/23 13:10 ED [id number]) Physical Therapy Assessment Rehab Potential Rehabilitation Potential Good Evaluation Complexity Number of Personal Factors/Comorbidities 3 or More Number of Body Systems Impaired 1-2 Clinical Presentation at Evaluation Stable Goals lifting Impairment lifting Impairment unable to pickling machine operator 10# from ground Short Term Goal (STG) Pt will be able to pickling machine operator 10# from ground for 10 reps without low back pain STG Duration 4 weeks Fpc Goal (LTG) Pt will be able to pickling machine operator 20# from ground for 10 reps without low back pain. LTG Duration 8 weeks % improvement Impairment % improvement Short Term Goal (STG) Pt will report 15% improvement in symptoms. STG Duration 3 weeks Emergency Vehicle Driver Goal (LTG) Pt will report 50% improvement in symptoms. LTG Duration 6-8 weeks Oswestry Impairment Oswestry score Impairment IE:22 / 50 = 44.0 % Fpc Goal (LTG) Pt will improve Oswestry score by >8 points to a score <14/ 50. LTG Duration 6-8 week HEP Impairment HEP Short Term Goal (STG) Pt will report performing HEP >3 days/week. STG Duration 3 weeks Emergency Vehicle Driver Goal (LTG) Pt will report performing HEP >3 days/week. LTG Duration 6-8 weeks Assessment Summary Assessment Pt reported to PT for chronic low back pain and R LE radiculopathy. Pt was emotional during initial evaluation and perserverated on how limited her functional mobility is secondary to her back pain. Pt demonstrated fear avoidance behaviors and self limiting thoughts. PT and patient discussed plan of care of gradual exposure to stimuli for her body to slowly improve her confidence and self efficacy. Pt demonstrated understanding of discussion regarding her pain sensitivity and gradual exposure. PT provided initial HEP of : short and frequent walks, hip bridges, UE supported lumbar flexion in sitting position, and prone press ups which she was able to do comfortably today. Physical Therapy Plan Frequency and Duration Frequency of Treatment 2x/Week Duration of treatment (weeks) 10 Plan of Care Start Date 06/27/23 Plan of Care End Date 09/25/23 Therapeutic Interventions Therapeutic Interventions Joint Mobilizations,Manual Therapy,Neuromuscular Re- education,Patient/Caregiver Education,Self-Care/Home Management,Soft Tissue Mobilization,Taping, Therapeutic Activities, Therapeutic Exercises Modalities Hot Packs Next Visit Focus/Plan Next Note Type Treatment Note Next Visit Plan TM/elliptical, PB flexion, press up, child pose, lat pull down, sit<>stand, bridge Plan of Care Dates Plan of Care Start Date 06/27/23 Plan of Care End Date 09/25/23 Electronically Signed by: Jaylan Sahni, PT 06/27/23 5532 If you are in agreement with this Plan of Care, please return a signed and dated copy. I have reviewed this Plan of Care and certify that the skilled therapy services above are required to meet the patient?s needs. Physician Signature Date Printed Name and Credentials Clinical Instructor Signature Printed Name and Credentials
--- NOTE | 2023-07-02 11:26 | PT.OTN ---
Current Diagnoses Other chronic pain (07/02/23) Low back pain, unspecified (07/02/23) Physical Therapy Treatment Note PT-OP-A Visit Information Start: 06/27/23 09:46 Freq: Status: Active Protocol: Document 07/02/23 11:22 ED (Rec: 07/02/23 11:26 ED [id number]) Out-Patient Physical Therapy Visit Information Visit Information Visit Type Treatment Note Visit Note 09/25 units used Visit Start Time 10:45 Visit Stop Time 11:25 Total Visit Minutes 40 Visit Number 2 PT-OP-B Current Condition Start: 06/27/23 09:46 Freq: Status: Active Protocol: Document 06/27/23 12:56 ED (Rec: 06/27/23 13:10 ED [id number]) Current Condition History of Current Condition Onset Date chronic Current Complaints low back pain; R LE radiculopathy History of Current Condition Pt states that she has had on and off again back pain for years. She mentions having significant problems with daily and recreational activities secondary to low back pain and that it makes everything hard. Her pain controls her life and limits what she is able to do. She is no longer working. She mentions having other medical pathologies that don't help her either. She states she has R paresthesia down her R leg into her ankle; it's on the back side of her R LE. She states she can be very high strung and get emotional regarding her pain and other diagnoses. She wants to start taking care of herself and focusing on improving her life . Treatment Goals Patient/Caregiver Goals lose weight and improve confidence PT-OP-C Subjective Start: 06/27/23 09:46 Freq: Status: Active Protocol: Document 07/02/23 11:22 ED (Rec: 07/02/23 11:26 ED [id number]) OP-PT Subjective Patient Comments Patient Comments Pt states that she has been trying to go on walks and do her HEP. Denies any pain while or after performing the exercises. Is very motivated to work on herself now. PT-OP-K Range of Motion Start: 06/27/23 09:46 Freq: Status: Active Protocol: Document 06/27/23 12:56 ED (Rec: 06/27/23 13:10 ED [id number]) Lumbar Spine Range of Motion Lumbar Spine Active Percentage Flexion 100 Extension 100 PT-OP-Q Treatments Start: 06/27/23 09:46 Freq: Status: Active Protocol: Document 07/02/23 11:22 ED (Rec: 07/02/23 11:26 ED [id number]) Cardio Equipment Elliptical Duration (Minutes) 10 Resistance 3 Therapeutic Exercises Supine Exercises bridge Supine Exercise Name bridge variations Reps/Minutes 3x10 Comments normal, feet elevated, weighted (10#) Prone Exercises willian pose Reps/Minutes x1 minute press up Prone Exercise Name prone press up Reps/Minutes 1x10 Sitting Exercises lumbar flexion Sitting Exercise Name tball lumbar flexion Resistance tball Reps/Minutes 3x10 lat pull down Sitting Exercise Name lat pull down Resistance L3 Equipment Used machine Reps/Minutes 3x10 Therapeutic Activity Therapeutic Activity hip hinge Name RDL Reps/Minutes 3x10 Comments basketball 2 sets 10# 1 set squat Name sit<>stand Reps/Minutes [id number] PT-OP-T Assessment and Plan Start: 06/27/23 09:46 Freq: Status: Active Protocol: Document 07/02/23 11:22 ED (Rec: 07/02/23 11:26 ED [id number]) Physical Therapy Assessment Goals lifting Impairment lifting Impairment unable to pickling operator 10# from ground Short Term Goal (STG) Pt will be able to pickling operator 10# from ground for 10 reps without low back pain STG Duration 4 weeks Tiger Machine Operator Goal (LTG) Pt will be able to pickling operator 20# from ground for 10 reps without low back pain. LTG Duration 8 weeks % improvement Impairment % improvement Short Term Goal (STG) Pt will report 15% improvement in symptoms. STG Duration 3 weeks Tiger Machine Operator Goal (LTG) Pt will report 50% improvement in symptoms. LTG Duration 6-8 weeks Oswestry Impairment Oswestry score Impairment IE:22 / 50 = 44.0 % Mcc Goal (LTG) Pt will improve Oswestry score by >8 points to a score <14/ 50. LTG Duration 6-8 week HEP Impairment HEP Short Term Goal (STG) Pt will report performing HEP >3 days/week. STG Duration 3 weeks Mcc Goal (LTG) Pt will report performing HEP >3 days/week. LTG Duration 6-8 weeks Assessment Summary Assessment Pt tolerated treatment well which was focused on a wide range of different stimuli to body including elliptical, bridges, spinal flexion, spinal extension, sit<>stands, and hip hinging. Pt denied any pain or discomfort during the movements. PT and patient discussing process of pain desensitization by graded exposure to stresses such as different ranges of motion and ways of loading musculoskeletal structure. Physical Therapy Plan Frequency and Duration Frequency of Treatment 2x/Week Duration of treatment (weeks) 10 Plan of Care Start Date 06/27/23 Plan of Care End Date 09/25/23 Therapeutic Interventions Therapeutic Interventions Joint Mobilizations,Manual Therapy,Neuromuscular Re- education,Patient/Caregiver Education,Self-Care/Home Management,Soft Tissue Mobilization,Taping, Therapeutic Activities, Therapeutic Exercises Modalities Hot Packs Next Visit Focus/Plan Next Note Type Treatment Note Next Visit Plan TM/elliptical, PB flexion, press up, child pose, lat pull down, sit<>stand, bridge
--- NOTE | 2023-07-04 11:32 | PT.OTN ---
Current Diagnoses Other chronic pain (07/04/23) Low back pain, unspecified (07/04/23) Physical Therapy Treatment Note PT-OP-A Visit Information Start: 06/27/23 09:46 Freq: Status: Active Protocol: Document 07/04/23 11:26 ED (Rec: 07/04/23 11:32 ED [id number]) Out-Patient Physical Therapy Visit Information Visit Information Visit Type Treatment Note Visit Note 12/24 units used Visit Start Time 10:45 Visit Stop Time 11:15 Total Visit Minutes 30 Visit Number 3 PT-OP-B Current Condition Start: 06/27/23 09:46 Freq: Status: Active Protocol: Document 06/27/23 12:56 ED (Rec: 06/27/23 13:10 ED [id number]) Current Condition History of Current Condition Onset Date chronic Current Complaints low back pain; R LE radiculopathy History of Current Condition Pt states that she has had on and off again back pain for years. She mentions having significant problems with daily and recreational activities secondary to low back pain and that it makes everything hard. Her pain controls her life and limits what she is able to do. She is no longer working. She mentions having other medical pathologies that don't help her either. She states she has R paresthesia down her R leg into her ankle; it's on the back side of her R LE. She states she can be very high strung and get emotional regarding her pain and other diagnoses. She wants to start taking care of herself and focusing on improving her life . Treatment Goals Patient/Caregiver Goals lose weight and improve confidence PT-OP-C Subjective Start: 06/27/23 09:46 Freq: Status: Active Protocol: Document 07/04/23 11:26 ED (Rec: 07/04/23 11:32 ED [id number]) OP-PT Subjective Patient Comments Patient Comments Pt states she was a little sore but was expecting to be so she's okay with it. States she is considering joining [facility] [employer]. PT-OP-K Range of Motion Start: 06/27/23 09:46 Freq: Status: Active Protocol: Document 06/27/23 12:56 ED (Rec: 06/27/23 13:10 ED [id number]) Lumbar Spine Range of Motion Lumbar Spine Active Percentage Flexion 100 Extension 100 PT-OP-Q Treatments Start: 06/27/23 09:46 Freq: Status: Active Protocol: Document 07/04/23 11:26 ED (Rec: 07/04/23 11:32 ED [id number]) Cardio Equipment Elliptical Duration (Minutes) 10 Resistance 3 Treadmill Duration (Minutes) 5 Speed 2 Incline 2 Therapeutic Exercises Prone Exercises willian pose Reps/Minutes x1 minute press up Prone Exercise Name prone press up Reps/Minutes 1x10 Sitting Exercises lumbar flexion Sitting Exercise Name tball lumbar flexion Resistance tball Reps/Minutes 3x10 lat pull down Sitting Exercise Name lat pull down Resistance L3 Equipment Used machine Reps/Minutes 3x10 Therapeutic Activity Therapeutic Activity hip hinge Name RDL Reps/Minutes 3x10 Comments basketball 2 sets 10# 1 set squat Name sit<>stand Reps/Minutes [id number] PT-OP-T Assessment and Plan Start: 06/27/23 09:46 Freq: Status: Active Protocol: Document 07/04/23 11:26 ED (Rec: 07/04/23 11:32 ED [id number]) Physical Therapy Assessment Goals lifting Impairment lifting Impairment unable to clam picker 10# from ground Short Term Goal (STG) Pt will be able to clam picker 10# from ground for 10 reps without low back pain STG Duration 4 weeks Ed Transporter Goal (LTG) Pt will be able to clam picker 20# from ground for 10 reps without low back pain. LTG Duration 8 weeks % improvement Impairment % improvement Short Term Goal (STG) Pt will report 15% improvement in symptoms. STG Duration 3 weeks Ed Transporter Goal (LTG) Pt will report 50% improvement in symptoms. LTG Duration 6-8 weeks Oswestry Impairment Oswestry score Impairment IE:22 / 50 = 44.0 % Ed Transporter Goal (LTG) Pt will improve Oswestry score by >8 points to a score <14/ 50. LTG Duration 6-8 week HEP Impairment HEP Short Term Goal (STG) Pt will report performing HEP >3 days/week. STG Duration 3 weeks Ed Transporter Goal (LTG) Pt will report performing HEP >3 days/week. LTG Duration 6-8 weeks Assessment Summary Assessment Continued with same exercises as previous session as patient is very new to exercising and PT wants patient to acclimate to movements. Denied any pain during exercises today and is great participant during sessions. Physical Therapy Plan Frequency and Duration Frequency of Treatment 2x/Week Duration of treatment (weeks) 10 Plan of Care Start Date 06/27/23 Plan of Care End Date 09/25/23 Therapeutic Interventions Therapeutic Interventions Joint Mobilizations,Manual Therapy,Neuromuscular Re- education,Patient/Caregiver Education,Self-Care/Home Management,Soft Tissue Mobilization,Taping, Therapeutic Activities, Therapeutic Exercises Modalities Hot Packs Next Visit Focus/Plan Next Note Type Treatment Note Next Visit Plan TM/elliptical, PB flexion, press up, child pose, lat pull down, sit<>stand, bridge
--- NOTE | 2023-07-11 12:14 | PT.OTN ---
Current Diagnoses Other chronic pain (07/11/23) Low back pain, unspecified (07/11/23) Physical Therapy Treatment Note PT-OP-A Visit Information Start: 06/27/23 09:46 Freq: Status: Active Protocol: Document 07/11/23 12:10 ED (Rec: 07/11/23 12:14 ED [id number]) Out-Patient Physical Therapy Visit Information Visit Information Visit Type Treatment Note Visit Note 02/23 units used Visit Start Time 11:30 Visit Stop Time 12:00 Total Visit Minutes 30 Visit Number 4 PT-OP-B Current Condition Start: 06/27/23 09:46 Freq: Status: Active Protocol: Document 06/27/23 12:56 ED (Rec: 06/27/23 13:10 ED [id number]) Current Condition History of Current Condition Onset Date chronic Current Complaints low back pain; R LE radiculopathy History of Current Condition Pt states that she has had on and off again back pain for years. She mentions having significant problems with daily and recreational activities secondary to low back pain and that it makes everything hard. Her pain controls her life and limits what she is able to do. She is no longer working. She mentions having other medical pathologies that don't help her either. She states she has R paresthesia down her R leg into her ankle; it's on the back side of her R LE. She states she can be very high strung and get emotional regarding her pain and other diagnoses. She wants to start taking care of herself and focusing on improving her life . Treatment Goals Patient/Caregiver Goals lose weight and improve confidence PT-OP-C Subjective Start: 06/27/23 09:46 Freq: Status: Active Protocol: Document 07/11/23 12:10 ED (Rec: 07/11/23 12:14 ED [id number]) OP-PT Subjective Patient Comments Patient Comments Pt states she is going to try to join [employer] as she recognizes the importance of regular exercise and wants to take care of herself. PT-OP-K Range of Motion Start: 06/27/23 09:46 Freq: Status: Active Protocol: Document 06/27/23 12:56 ED (Rec: 06/27/23 13:10 ED [id number]) Lumbar Spine Range of Motion Lumbar Spine Active Percentage Flexion 100 Extension 100 PT-OP-Q Treatments Start: 06/27/23 09:46 Freq: Status: Active Protocol: Document 07/11/23 12:10 ED (Rec: 07/11/23 12:14 ED [id number]) Cardio Equipment Elliptical Duration (Minutes) 10 Resistance 3 Treadmill Duration (Minutes) 5 Speed 2 Incline 2 Other retro walking; at end Therapeutic Exercises Prone Exercises willian pose Reps/Minutes x1 minute press up Prone Exercise Name prone press up Reps/Minutes 1x10 Sitting Exercises lumbar flexion Sitting Exercise Name tball lumbar flexion Resistance tball Reps/Minutes 3x10 lat pull down Sitting Exercise Name lat pull down Resistance L3 Equipment Used machine Reps/Minutes 3x10 Therapeutic Activity Therapeutic Activity hip hinge Name adria curl Reps/Minutes 3x5 Comments holding dowel similar to barbell squat Name wall squat Reps/Minutes 3x30 sec holds PT-OP-T Assessment and Plan Start: 06/27/23 09:46 Freq: Status: Active Protocol: Document 07/11/23 12:10 ED (Rec: 07/11/23 12:14 ED [id number]) Physical Therapy Assessment Goals lifting Impairment lifting Impairment unable to pick pulling machine operator 10# from ground Short Term Goal (STG) Pt will be able to pick pulling machine operator 10# from ground for 10 reps without low back pain STG Duration 4 weeks Professor Of Business Goal (LTG) Pt will be able to pick pulling machine operator 20# from ground for 10 reps without low back pain. LTG Duration 8 weeks % improvement Impairment % improvement Short Term Goal (STG) Pt will report 15% improvement in symptoms. STG Duration 3 weeks Half-Way Goal (LTG) Pt will report 50% improvement in symptoms. LTG Duration 6-8 weeks Oswestry Impairment Oswestry score Impairment IE:22 / 50 = 44.0 % Professor Of Business Goal (LTG) Pt will improve Oswestry score by >8 points to a score <14/ 50. LTG Duration 6-8 week HEP Impairment HEP Short Term Goal (STG) Pt will report performing HEP >3 days/week. STG Duration 3 weeks Professor Of Business Goal (LTG) Pt will report performing HEP >3 days/week. LTG Duration 6-8 weeks Assessment Summary Assessment Worked on mobility exercises followed by strengthening for back and legs. PT has yet to mention patient's limited insurance coverage (24 units allowed) so she will need to be reminded of this soon. Pt able to do all movements today without pain. PT continuing to educate patient that the exercises are to increase her tolerance to pain through graded exercise and improve her overall self effficacy. Physical Therapy Plan Frequency and Duration Frequency of Treatment 2x/Week Duration of treatment (weeks) 10 Plan of Care Start Date 06/27/23 Plan of Care End Date 09/25/23 Therapeutic Interventions Therapeutic Interventions Joint Mobilizations,Manual Therapy,Neuromuscular Re- education,Patient/Caregiver Education,Self-Care/Home Management,Soft Tissue Mobilization,Taping, Therapeutic Activities, Therapeutic Exercises Modalities Hot Packs Next Visit Focus/Plan Next Note Type Treatment Note Next Visit Plan TM/elliptical, PB flexion, press up, child pose, lat pull down, sit<>stand, bridge
--- NOTE | 2023-07-16 11:20 | PT.OTN ---
Current Diagnoses Other chronic pain (07/16/23) Low back pain, unspecified (07/16/23) Physical Therapy Treatment Note PT-OP-A Visit Information Start: 06/27/23 09:46 Freq: Status: Active Protocol: Document 07/16/23 10:31 NM (Rec: 07/16/23 11:20 NM [id number]) Out-Patient Physical Therapy Visit Information Visit Information Visit Type Treatment Note Visit Note 04/25 units used Visit Start Time 10:30 Visit Stop Time 11:04 Total Visit Minutes 34 Visit Number 5 PT-OP-B Current Condition Start: 06/27/23 09:46 Freq: Status: Active Protocol: Document 06/27/23 12:56 ED (Rec: 06/27/23 13:10 ED [id number]) Current Condition History of Current Condition Onset Date chronic Current Complaints low back pain; R LE radiculopathy History of Current Condition Pt states that she has had on and off again back pain for years. She mentions having significant problems with daily and recreational activities secondary to low back pain and that it makes everything hard. Her pain controls her life and limits what she is able to do. She is no longer working. She mentions having other medical pathologies that don't help her either. She states she has R paresthesia down her R leg into her ankle; it's on the back side of her R LE. She states she can be very high strung and get emotional regarding her pain and other diagnoses. She wants to start taking care of herself and focusing on improving her life . Treatment Goals Patient/Caregiver Goals lose weight and improve confidence PT-OP-C Subjective Start: 06/27/23 09:46 Freq: Status: Active Protocol: Document 07/16/23 10:31 NM (Rec: 07/16/23 11:20 NM [id number]) OP-PT Subjective Patient Comments Patient Comments Pt states that she is doing well, but her legs are sore today. Her pain is constant but she says that her pain is reduced today compared to normal. PT-OP-K Range of Motion Start: 06/27/23 09:46 Freq: Status: Active Protocol: Document 06/27/23 12:56 ED (Rec: 06/27/23 13:10 ED [id number]) Lumbar Spine Range of Motion Lumbar Spine Active Percentage Flexion 100 Extension 100 PT-OP-Q Treatments Start: 06/27/23 09:46 Freq: Status: Active Protocol: Document 07/16/23 10:31 NM (Rec: 07/16/23 11:20 NM [id number]) Cardio Equipment Elliptical Duration (Minutes) 6 Resistance 3 Treadmill Duration (Minutes) 5 Speed 2 Incline 2 Other end of session; fwd walking only due to exhaustion Therapeutic Exercises Prone Exercises willian pose Reps/Minutes x1 minute press up Prone Exercise Name prone press up Reps/Minutes 10 Sitting Exercises Rows Sitting Exercise Name rowing machine Side bilateral Resistance L2 Reps/Minutes 3x10 Comments cues for scap retraction lumbar flexion Sitting Exercise Name tball lumbar flexion Resistance 10# Reps/Minutes 10 lat pull down Sitting Exercise Name lat pull down Resistance L3 Equipment Used machine Reps/Minutes 3x10 Standing Exercises Flexion Standing Exercise Name hinge/squat Side bilateral Resistance 10# Reps/Minutes 15, Comments cues for reps PT-OP-T Assessment and Plan Start: 06/27/23 09:46 Freq: Status: Active Protocol: Document 07/16/23 10:31 NM (Rec: 07/16/23 11:20 NM [id number]) Physical Therapy Assessment Goals lifting Impairment lifting Impairment unable to rock picker 10# from ground Short Term Goal (STG) Pt will be able to rock picker 10# from ground for 10 reps without low back pain STG Duration 4 weeks [facility] Goal (LTG) Pt will be able to rock picker 20# from ground for 10 reps without low back pain. LTG Duration 8 weeks % improvement Impairment % improvement Short Term Goal (STG) Pt will report 15% improvement in symptoms. STG Duration 3 weeks Top Lift Scourer Goal (LTG) Pt will report 50% improvement in symptoms. LTG Duration 6-8 weeks Oswestry Impairment Oswestry score Impairment IE:22 / 50 = 44.0 % Top Lift Scourer Goal (LTG) Pt will improve Oswestry score by >8 points to a score <14/ 50. LTG Duration 6-8 week HEP Impairment HEP Short Term Goal (STG) Pt will report performing HEP >3 days/week. STG Duration 3 weeks Top Lift Scourer Goal (LTG) Pt will report performing HEP >3 days/week. LTG Duration 6-8 weeks Assessment Summary Assessment Pt tolerated treatment well, but was fatigued by the end of the session. Discussed with pt about having only 24 units of insurance; pt verbalized understanding and would like to continue sessions as long as possible under coverage and creating an HEP for discharge . Pt able to perform all activities today without pain, and she is working toward meeting her PT goals. Pt demonstrated ability to hinge/ squat to rock picker 10# ball from floor while standing for multiple reps; also added cable rows today to promote mid-back strengthening. Will continue to progress trunk strengthening exercises next session and initiate more strengthening activities to engage the core. Pt expressed interest in establishing a walking program to be able to perform at home; HEP will be updated in next session to progress activities. Pt would benefit from skilled PT to address impairments in trunk strength, mobility, activity tolerance, and to encourage self efficacy. Physical Therapy Plan Frequency and Duration Frequency of Treatment 2x/Week Duration of treatment (weeks) 10 Plan of Care Start Date 06/27/23 Plan of Care End Date 09/25/23 Therapeutic Interventions Therapeutic Interventions Joint Mobilizations,Manual Therapy,Neuromuscular Re- education,Patient/Caregiver Education,Self-Care/Home Management,Soft Tissue Mobilization,Taping, Therapeutic Activities, Therapeutic Exercises Modalities Hot Packs Next Visit Focus/Plan Next Note Type Treatment Note Next Visit Plan TM/elliptical. Progress hinge/ squat, BLE strengthening, initiate core strengthening. Update HEP and create walking program
--- NOTE | 2023-07-18 11:29 | PT.OTN ---
Current Diagnoses Other chronic pain (07/18/23) Low back pain, unspecified (07/18/23) Physical Therapy Treatment Note PT-OP-A Visit Information Start: 06/27/23 09:46 Freq: Status: Active Protocol: Document 07/18/23 10:34 NM (Rec: 07/18/23 11:28 NM [id number]) Out-Patient Physical Therapy Visit Information Visit Information Visit Type Treatment Note Visit Note 06/25 units used Visit Start Time 10:30 Visit Stop Time 11:05 Total Visit Minutes 35 Visit Number 6 PT-OP-B Current Condition Start: 06/27/23 09:46 Freq: Status: Active Protocol: Document 06/27/23 12:56 ED (Rec: 06/27/23 13:10 ED [id number]) Current Condition History of Current Condition Onset Date chronic Current Complaints low back pain; R LE radiculopathy History of Current Condition Pt states that she has had on and off again back pain for years. She mentions having significant problems with daily and recreational activities secondary to low back pain and that it makes everything hard. Her pain controls her life and limits what she is able to do. She is no longer working. She mentions having other medical pathologies that don't help her either. She states she has R paresthesia down her R leg into her ankle; it's on the back side of her R LE. She states she can be very high strung and get emotional regarding her pain and other diagnoses. She wants to start taking care of herself and focusing on improving her life . Treatment Goals Patient/Caregiver Goals lose weight and improve confidence PT-OP-C Subjective Start: 06/27/23 09:46 Freq: Status: Active Protocol: Document 07/18/23 10:34 NM (Rec: 07/18/23 11:28 NM [id number]) OP-PT Subjective Patient Comments Patient Comments Pt presents to clinic upset and reports that her quads are sore and her neck is sore, probably due to the rows from last session. She also slept poorly last night and feels like she has an ache in her neck, near R upper trap. Pt had to reschedule next session in order to get her injection for her back. PT-OP-K Range of Motion Start: 06/27/23 09:46 Freq: Status: Active Protocol: Document 06/27/23 12:56 ED (Rec: 06/27/23 13:10 ED [id number]) Lumbar Spine Range of Motion Lumbar Spine Active Percentage Flexion 100 Extension 100 PT-OP-Q Treatments Start: 06/27/23 09:46 Freq: Status: Active Protocol: Document 07/18/23 10:34 NM (Rec: 07/18/23 11:28 NM [id number]) Cardio Equipment Treadmill Duration (Minutes) 5 Speed 1.5 Incline 0 Other start of session to warm up, no incline d/t soreness Therapeutic Exercises Prone Exercises Superman Prone Exercise Name arms only Side bilateral Reps/Minutes 2x10 Comments unable to lift BLE Sitting Exercises Piriformis Self-Mobilization Equipment Used lacrosse ball Reps/Minutes x10 Comments moving ext LE into hip flex > ER> hip flex> knee ext, reports relief Piriformis stretch Sitting Exercise Name Trialed- figure 4 Side right Reps/Minutes 30 Comments too aggressive, peripheralizes symptoms Standing Exercises Lumbar Extension Equipment Used ballerina bar to block bottom Reps/Minutes 2x10 Comments arms by side, extend into gentle ROM, reports relief Other Exercises Quadruped Other Exercise Name 1. Cat cow, 2. donkey kicks Side bilateral Reps/Minutes 2x10 ea Comments 1. for ROM, 2. glute strengthening, cues to prevent hip rotation PT-OP-T Assessment and Plan Start: 06/27/23 09:46 Freq: Status: Active Protocol: Document 07/18/23 10:34 NM (Rec: 07/18/23 11:28 NM [id number]) Physical Therapy Assessment Goals lifting Impairment lifting Impairment unable to poultry picking machine tender 10# from ground Short Term Goal (STG) Pt will be able to poultry picking machine tender 10# from ground for 10 reps without low back pain STG Duration 4 weeks Jail Goal (LTG) Pt will be able to poultry picking machine tender 20# from ground for 10 reps without low back pain. LTG Duration 8 weeks % improvement Impairment % improvement Short Term Goal (STG) Pt will report 15% improvement in symptoms. STG Duration 3 weeks Jail Goal (LTG) Pt will report 50% improvement in symptoms. LTG Duration 6-8 weeks Oswestry Impairment Oswestry score Impairment IE:22 / 50 = 44.0 % Jail Goal (LTG) Pt will improve Oswestry score by >8 points to a score <14/ 50. LTG Duration 6-8 week HEP Impairment HEP Short Term Goal (STG) Pt will report performing HEP >3 days/week. STG Duration 3 weeks Pit Worker Power Shovel Goal (LTG) Pt will report performing HEP >3 days/week. LTG Duration 6-8 weeks Assessment Summary Assessment Pt tolerated treatment well despite initial agitation at beginning of session. After discussion with pt about symptoms and continuing lumbar flexion exercises last session, treatment today emphasized lumbar extension. Pt has a noticable decrease in symptoms with lumbar extension; she reports centralization. Trialed targeting piriformis muscle today with stretching and self soft-tissue mobilization based on pt complaints; stretching peripheralized symptoms while the self-mob with a lacrosse ball into hip flex/ER was relieving. Initiated gentle core strengthening with transverse abdominus activation during quadruped; will progress as tolerated. HEP updated to include walking program, prone extension (superman) and quadruped activities (hip ext) . Pt would benefit from skilled PT to continue with graded exercise progression, strengthening, mobility, and to improve activity tolerance. Physical Therapy Plan Frequency and Duration Frequency of Treatment 2x/Week Duration of treatment (weeks) 10 Plan of Care Start Date 06/27/23 Plan of Care End Date 09/25/23 Therapeutic Interventions Therapeutic Interventions Joint Mobilizations,Manual Therapy,Neuromuscular Re- education,Patient/Caregiver Education,Self-Care/Home Management,Soft Tissue Mobilization,Taping, Therapeutic Activities, Therapeutic Exercises Modalities Hot Packs Next Visit Focus/Plan Next Note Type Treatment Note Next Visit Plan TM. Evaluate lumbar extension vs flexion at next visit. Continue core strengthening, BLE strengthening. Determine if meeting goals.
--- NOTE | 2023-07-24 12:40 | PT.OTN ---
Current Diagnoses Other chronic pain (07/24/23) Low back pain, unspecified (07/24/23) Physical Therapy Treatment Note PT-OP-A Visit Information Start: 06/27/23 09:46 Freq: Status: Active Protocol: Document 07/24/23 10:31 SW (Rec: 07/24/23 12:40 [id number]) Out-Patient Physical Therapy Visit Information Visit Information Visit Type Treatment Note Visit Note units used Visit Start Time 10:30 Visit Stop Time 11:16 Total Visit Minutes 46 Visit Number 7 PT-OP-B Current Condition Start: 06/27/23 09:46 Freq: Status: Active Protocol: Document 06/27/23 12:56 ED (Rec: 06/27/23 13:10 ED [id number]) Current Condition History of Current Condition Onset Date chronic Current Complaints low back pain; R LE radiculopathy History of Current Condition Pt states that she has had on and off again back pain for years. She mentions having significant problems with daily and recreational activities secondary to low back pain and that it makes everything hard. Her pain controls her life and limits what she is able to do. She is no longer working. She mentions having other medical pathologies that don't help her either. She states she has R paresthesia down her R leg into her ankle; it's on the back side of her R LE. She states she can be very high strung and get emotional regarding her pain and other diagnoses. She wants to start taking care of herself and focusing on improving her life . Treatment Goals Patient/Caregiver Goals lose weight and improve confidence PT-OP-C Subjective Start: 06/27/23 09:46 Freq: Status: Active Protocol: Document 07/24/23 10:31 SW (Rec: 07/24/23 12:40 [id number]) OP-PT Subjective Patient Comments Patient Comments Pt reports not feeling as sore today. PT-OP-K Range of Motion Start: 06/27/23 09:46 Freq: Status: Active Protocol: Document 06/27/23 12:56 ED (Rec: 06/27/23 13:10 ED [id number]) Lumbar Spine Range of Motion Lumbar Spine Active Percentage Flexion 100 Extension 100 PT-OP-Q Treatments Start: 06/27/23 09:46 Freq: Status: Active Protocol: Document 07/24/23 10:31 SW (Rec: 07/24/23 12:40 [id number]) Cardio Equipment Treadmill Duration (Minutes) 5 Speed 1.5 Incline 0 Other start of session to warm up, no incline d/t soreness Therapeutic Exercises Prone Exercises Superman Prone Exercise Name arms only Side bilateral Reps/Minutes 2x10 Comments unable to lift BLE press up Prone Exercise Name prone press up Reps/Minutes 10 Standing Exercises Scapular setting Standing Exercise Name Scapular Setting Reps/Minutes x5 Comments cues for maintaining cervical retraction for cervical pn Lumbar Extension Equipment Used ballerina bar to block bottom Reps/Minutes 2x10 Comments arms by side, extend into gentle ROM, reports relief Flexion Standing Exercise Name hinge/squat Side bilateral Resistance 10# Reps/Minutes 15, Comments cues for reps Other Exercises Quadruped Other Exercise Name 1. Cat cow, 2. donkey kicks 3. Bird Dog, Alt UE only Side bilateral Reps/Minutes 2x10 ea Comments 1. for ROM, 2. glute strengthening, cues to prevent hip rotation 3.CoreSta Self-Care/Home Management Treatment Education Patient Education Pain Management Caregiver Education Educated pt on sleeping positions in regards to anatomy and alternatives that may support alignment and help with pn at night. PT-OP-T Assessment and Plan Start: 06/27/23 09:46 Freq: Status: Active Protocol: Document 07/24/23 10:31 (Rec: 07/24/23 12:40 [id number]) Physical Therapy Assessment Goals lifting Impairment lifting Impairment unable to tile picker 10# from ground Short Term Goal (STG) Pt will be able to tile picker 10# from ground for 10 reps without low back pain STG Duration 4 weeks Metal Shaping Machine Operator Goal (LTG) Pt will be able to tile picker 20# from ground for 10 reps without low back pain. LTG Duration 8 weeks % improvement Impairment % improvement Short Term Goal (STG) Pt will report 15% improvement in symptoms. STG Duration 3 weeks [facility] Goal (LTG) Pt will report 50% improvement in symptoms. LTG Duration 6-8 weeks Oswestry Impairment Oswestry score Impairment IE:22 / 50 = 44.0 % Metal Shaping Machine Operator Goal (LTG) Pt will improve Oswestry score by >8 points to a score <14/ 50. LTG Duration 6-8 week HEP Impairment HEP Short Term Goal (STG) Pt will report performing HEP >3 days/week. STG Duration 3 weeks [facility]dc Goal (LTG) Pt will report performing HEP >3 days/week. LTG Duration 6-8 weeks Assessment Summary Assessment Continued extension based progression today. No peripheralization of symptoms throughout session. Pt c/o neck pain with scapular setting that did not improve with verbal and visual cues to maintain cervical alignment and maintain breathwork with exercise, discontinued today d /t toelrance. Plan to assess pt tolerance to session today and progress as tolerated next session. Physical Therapy Plan Frequency and Duration Frequency of Treatment 2x/Week Duration of treatment (weeks) 10 Plan of Care Start Date 06/27/23 Plan of Care End Date 09/25/23 Therapeutic Interventions Therapeutic Interventions Joint Mobilizations,Manual Therapy,Neuromuscular Re- education,Patient/Caregiver Education,Self-Care/Home Management,Soft Tissue Mobilization,Taping, Therapeutic Activities, Therapeutic Exercises Modalities Hot Packs Next Visit Focus/Plan Next Note Type Treatment Note Next Visit Plan TM. Evaluate lumbar extension vs flexion at next visit. Continue core strengthening, BLE strengthening. Determine if meeting goals.
--- NOTE | 2023-07-30 12:17 | PT.OTN ---
Current Diagnoses Other chronic pain (07/30/23) Low back pain, unspecified (07/30/23) Physical Therapy Treatment Note PT-OP-A Visit Information Start: 06/27/23 09:46 Freq: Status: Active Protocol: Document 07/30/23 12:17 NM (Rec: 07/30/23 13:08 NM [id number]) Out-Patient Physical Therapy Visit Information Visit Information Visit Type Treatment Note Visit Note 04/25 PT visits Visit Start Time 12:15 Visit Stop Time 12:50 Total Visit Minutes 35 Visit Number 8 PT-OP-B Current Condition Start: 06/27/23 09:46 Freq: Status: Active Protocol: Document 06/27/23 12:56 ED (Rec: 06/27/23 13:10 ED [id number]) Current Condition History of Current Condition Onset Date chronic Current Complaints low back pain; R LE radiculopathy History of Current Condition Pt states that she has had on and off again back pain for years. She mentions having significant problems with daily and recreational activities secondary to low back pain and that it makes everything hard. Her pain controls her life and limits what she is able to do. She is no longer working. She mentions having other medical pathologies that don't help her either. She states she has R paresthesia down her R leg into her ankle; it's on the back side of her R LE. She states she can be very high strung and get emotional regarding her pain and other diagnoses. She wants to start taking care of herself and focusing on improving her life . Treatment Goals Patient/Caregiver Goals lose weight and improve confidence PT-OP-C Subjective Start: 06/27/23 09:46 Freq: Status: Active Protocol: Document 07/30/23 12:17 NM (Rec: 07/30/23 13:08 NM [id number]) OP-PT Subjective Patient Comments Patient Comments Pt reports that she is having increased radicular symptoms into her RLE and her R buttock . She was standing and cooking a lot for Thanksgiving, which has aggravated her back pain. She also states that she only has a few more appointments scheduled, so she needs to determine if she needs more sessions. PT-OP-K Range of Motion Start: 06/27/23 09:46 Freq: Status: Active Protocol: Document 06/27/23 12:56 ED (Rec: 06/27/23 13:10 ED [id number]) Lumbar Spine Range of Motion Lumbar Spine Active Percentage Flexion 100 Extension 100 PT-OP-Q Treatments Start: 06/27/23 09:46 Freq: Status: Active Protocol: Document 07/30/23 12:17 NM (Rec: 07/30/23 13:08 NM [id number]) Cardio Equipment Treadmill Duration (Minutes) 6 Speed 1.5 Incline 1.5 Other start of session to warm up Therapeutic Exercises Supine Exercises Dying bug Supine Exercise Name regressed from bird dog for improved pelvic control Side bilateral Equipment Used mat Reps/Minutes 2x8 ea Comments cued for TA activation, ruler under back for tactile cue; short LE ROM Sitting Exercises Piriformis Self-Mobilization Sitting Exercise Name moving ext LE into hip flex > ER> hip flex> knee ext, reports relief Equipment Used lacrosse ball Reps/Minutes x10 Comments improved tolerance for mobilization today; reports improvement in symptoms Standing Exercises Pallof Press Side bilateral Resistance lvl 3 tb ([place] Reps/Minutes 2x15 Comments cues for TA activation, no rotation Other Exercises Quadruped Other Exercise Name Bear plank for deep core strengthening Side bilateral Equipment Used mat Reps/Minutes 5x5, 2x10 Comments cues for TA activation; initial difficulty with maintaining position Manual Therapy Treatment Nerve Glides Sciatic Nerve [place] Body Position seated Reps/Duration 1x10 bilaterally Comments Cued for pt head to follow what her leg does. Pt with knee flex and slumped posture + neck flex > knee ext + extended posture + ext head She reports improvement in radicular symptoms with nerve glide; issued as part of HEP PT-OP-T Assessment and Plan Start: 06/27/23 09:46 Freq: Status: Active Protocol: Document 07/30/23 12:17 NM (Rec: 07/30/23 13:08 NM [id number]) Physical Therapy Assessment Rehab Potential Rehabilitation Potential Good Evaluation Complexity Number of Personal Factors/Comorbidities 3 or More Number of Body Systems Impaired 1-2 Clinical Presentation at Evaluation Stable Goals lifting Impairment lifting Impairment unable to poultry picker 10# from ground Short Term Goal (STG) Pt will be able to poultry picker 10# from ground for 10 reps without low back pain STG Duration 4 weeks Shelter Goal (LTG) Pt will be able to poultry picker 20# from ground for 10 reps without low back pain. LTG Duration 8 weeks % improvement Impairment % improvement Short Term Goal (STG) Pt will report 15% improvement in symptoms. STG Duration 3 weeks Supervisor Paste Plant Goal (LTG) Pt will report 50% improvement in symptoms. LTG Duration 6-8 weeks Oswestry Impairment Oswestry score Impairment IE:22 / 50 = 44.0 % Supervisor Paste Plant Goal (LTG) Pt will improve Oswestry score by >8 points to a score <14/ 50. LTG Duration 6-8 week HEP Impairment HEP Short Term Goal (STG) Pt will report performing HEP >3 days/week. STG Duration 3 weeks Supervisor Paste Plant Goal (LTG) Pt will report performing HEP >3 days/week. LTG Duration 6-8 weeks Assessment Summary Assessment Pt tolerated treatment well with a decrease in radicular symptoms throughout session. Tmt today emphasizing sciatic nerve mobilization with seated nerve glide and piriformis mobilization. Continued with core strengthening activities to assist with lumbar stabilization during activities. Pt demos difficulty with pelvis stabilization during core activities even within a decreased range, so changed bird dogs to dying bugs to encourage deep core activation without compensations at the pelvis. Pt shows improvement in spine stabilization with dying bugs and manual cue ( ruler) behind back. HEP issued : sciatic nerve glide, Pallof press, bear plank, piriformis mobilization, dying bug. Pt would benefit from skilled PT to address deficits in core/ lumbar strength and mobility, managing nerve symptoms, and improving exercise endurance to promote better activity tolerance and decrease symptoms. Physical Therapy Plan Frequency and Duration Frequency of Treatment 2x/Week Duration of treatment (weeks) 10 Plan of Care Start Date 06/27/23 Plan of Care End Date 09/25/23 Therapeutic Interventions Therapeutic Interventions Joint Mobilizations,Manual Therapy,Neuromuscular Re- education,Patient/Caregiver Education,Self-Care/Home Management,Soft Tissue Mobilization,Taping, Therapeutic Activities, Therapeutic Exercises Modalities Hot Packs Next Visit Focus/Plan Next Note Type Treatment Note Next Visit Plan TM. Evaluate lumbar extension vs flexion at next visit. Continue core strengthening, BLE strengthening. Determine if meeting goals.
--- NOTE | 2023-08-01 11:45 | PT.OTN ---
Current Diagnoses Other chronic pain (08/01/23) Low back pain, unspecified (08/01/23) Physical Therapy Treatment Note PT-OP-A Visit Information Start: 06/27/23 09:46 Freq: Status: Active Protocol: Document 08/01/23 10:41 NM (Rec: 08/01/23 11:44 NM [id number]) Out-Patient Physical Therapy Visit Information Visit Information Visit Type Treatment Note Visit Note 05/26 PT visits (2022) PN today Visit Start Time 10:30 Visit Stop Time 11:15 Total Visit Minutes 45 Visit Number 9 Evaluation Information Evaluation Date 06/27/23 PT-OP-B Current Condition Start: 06/27/23 09:46 Freq: Status: Active Protocol: Document 06/27/23 12:56 ED (Rec: 06/27/23 13:10 ED [id number]) Current Condition History of Current Condition Onset Date chronic Current Complaints low back pain; R LE radiculopathy History of Current Condition Pt states that she has had on and off again back pain for years. She mentions having significant problems with daily and recreational activities secondary to low back pain and that it makes everything hard. Her pain controls her life and limits what she is able to do. She is no longer working. She mentions having other medical pathologies that don't help her either. She states she has R paresthesia down her R leg into her ankle; it's on the back side of her R LE. She states she can be very high strung and get emotional regarding her pain and other diagnoses. She wants to start taking care of herself and focusing on improving her life . Treatment Goals Patient/Caregiver Goals lose weight and improve confidence PT-OP-C Subjective Start: 06/27/23 09:46 Freq: Status: Active Protocol: Document 08/01/23 10:41 NM (Rec: 08/01/23 11:44 NM [id number]) OP-PT Subjective Patient Comments Patient Comments Pt report soreness in her low back/buttock due to sitting in the car yesterday for 5-6 hours. She got injections in her arms yesterday, and they are very sore. PT-OP-K Range of Motion Start: 06/27/23 09:46 Freq: Status: Active Protocol: Document 06/27/23 12:56 ED (Rec: 06/27/23 13:10 ED [id number]) Lumbar Spine Range of Motion Lumbar Spine Active Percentage Flexion 100 Extension 100 PT-OP-Q Treatments Start: 06/27/23 09:46 Freq: Status: Active Protocol: Document 08/01/23 10:41 NM (Rec: 08/01/23 11:44 NM [id number]) Therapeutic Exercises Supine Exercises Lower Abdominal stab Supine Exercise Name start with BUE up/LUE 90/90, slowly lower B heels to mat and lift Side bilateral Reps/Minutes 2x10 Comments cues for TA activation Dying bug Supine Exercise Name good TA control Side bilateral Equipment Used mat Reps/Minutes 2x12 Comments cued for TA activation; ruler under back for tactile cue bridge Supine Exercise Name 1. bridge, 2. hip add with bridge Side bilateral Reps/Minutes 2x10 ea Comments cues for core & glute contraction Sitting Exercises Piriformis stretch Sitting Exercise Name seated with leg crossed not in ER Side bilateral Equipment Used mat Reps/Minutes 2x30 Comments has hip add pain with hip ER position Other Exercises Edson curl Side bilateral Resistance 2# tball because arms hurt Reps/Minutes 1x10 Comments cues for segmental flexion Therapeutic Activity Therapeutic Activity hip hinge Name deadlift (straight leg) Reps/Minutes 1x10 Comments Cues for hip hinge and core control PT-OP-T Assessment and Plan Start: 06/27/23 09:46 Freq: Status: Active Protocol: Document 08/01/23 10:41 NM (Rec: 08/01/23 11:44 NM [id number]) Physical Therapy Assessment Rehab Potential Rehabilitation Potential Good Evaluation Complexity Number of Personal Factors/Comorbidities 3 or More Number of Body Systems Impaired 1-2 Clinical Presentation at Evaluation Stable Goals lifting Impairment lifting Impairment unable to coal picker 10# from ground Short Term Goal (STG) Pt will be able to coal picker 10# from ground for 10 reps without low back pain MET 08/01/23: able to perform 10x10# fwd lumbar flex without low back pain or sciatic symptoms STG Duration 4 weeks Java Developer Goal (LTG) Pt will be able to coal picker 20# from ground for 10 reps without low back pain. NOT MET 08/01/23 LTG Duration 8 weeks % improvement Impairment % improvement Short Term Goal (STG) Pt will report 15% improvement in symptoms. MET 10/01/22 STG Duration 3 weeks Java Developer Goal (LTG) Pt will report 50% improvement in symptoms. NOT MET 08/01/23 LTG Duration 6-8 weeks Oswestry Impairment Oswestry score Impairment IE:22 / 50 = 44.0 % Java Developer Goal (LTG) Pt will improve Oswestry score by >8 points to a score <14/ 50. LTG Duration 6-8 week HEP Impairment HEP Short Term Goal (STG) Pt will report performing HEP >3 days/week. MET 08/01/23 STG Duration 3 weeks Senior Care Goal (LTG) Pt will report performing HEP >3 days/week. LTG Duration 6-8 weeks Assessment Summary Assessment Pt tolerated treatment well. Did not progress any exercises today beyond supine core exercises because pt is extremely sore and fatigued from receiving her injections yesterday. In supine, pt is able to stabilize pelvis and core well. Emphasized working on stretching and mobilizing piriformis to address soft tissue restrictions and decrease pressure on sciatic nerve. Pt would benefit from skilled PT to address deficits in core/lumbar strength and mobility, managing nerve symptoms, and improving exercise endurance to promote better activity tolerance and decrease symptoms. Physical Therapy Plan Frequency and Duration Frequency of Treatment 2x/Week Duration of treatment (weeks) 10 Plan of Care Start Date 06/27/23 Plan of Care End Date 09/25/23 Therapeutic Interventions Therapeutic Interventions Joint Mobilizations,Manual Therapy,Neuromuscular Re- education,Patient/Caregiver Education,Self-Care/Home Management,Soft Tissue Mobilization,Taping, Therapeutic Activities, Therapeutic Exercises Modalities Hot Packs Next Visit Focus/Plan Next Note Type Treatment Note Next Visit Plan Continue core strengthening qing pelvis stability, BLE strengthening, sciatic n glide as tolerated (seated), decrease radicular symptoms and encourage mobility
--- NOTE | 2023-08-01 11:59 | PT.OPPN ---
Current Diagnoses Other chronic pain (08/01/23) Low back pain, unspecified (08/01/23) Physical Therapy Progress Note PT-OP-A Visit Information Start: 06/27/23 09:46 Freq: Status: Active Protocol: Document 08/01/23 10:41 NM (Rec: 08/01/23 11:57 NM [id number]) Out-Patient Physical Therapy Visit Information Visit Information Visit Type Progress Note Visit Note 05/26 PT visits (2022) PN today Visit Start Time 10:30 Visit Stop Time 11:15 Total Visit Minutes 45 Visit Number 9 PT-OP-B Current Condition Start: 06/27/23 09:46 Freq: Status: Active Protocol: Document 06/27/23 12:56 ED (Rec: 06/27/23 13:10 ED [id number]) Current Condition History of Current Condition Onset Date chronic Current Complaints low back pain; R LE radiculopathy History of Current Condition Pt states that she has had on and off again back pain for years. She mentions having significant problems with daily and recreational activities secondary to low back pain and that it makes everything hard. Her pain controls her life and limits what she is able to do. She is no longer working. She mentions having other medical pathologies that don't help her either. She states she has R paresthesia down her R leg into her ankle; it's on the back side of her R LE. She states she can be very high strung and get emotional regarding her pain and other diagnoses. She wants to start taking care of herself and focusing on improving her life . Treatment Goals Patient/Caregiver Goals lose weight and improve confidence PT-OP-C Subjective Start: 06/27/23 09:46 Freq: Status: Active Protocol: Document 08/01/23 10:41 NM (Rec: 08/01/23 11:57 NM [id number]) OP-PT Subjective Patient Comments Patient Comments Pt report soreness in her low back/buttock due to sitting in the car yesterday for 5-6 hours. She got injections in her arms yesterday, and they are very sore. PT-OP-K Range of Motion Start: 06/27/23 09:46 Freq: Status: Active Protocol: Document 06/27/23 12:56 ED (Rec: 06/27/23 13:10 ED [id number]) Lumbar Spine Range of Motion Lumbar Spine Active Percentage Flexion 100 Extension 100 PT-OP-T Assessment and Plan Start: 06/27/23 09:46 Freq: Status: Active Protocol: Document 08/01/23 10:41 NM (Rec: 08/01/23 11:57 NM [id number]) Physical Therapy Assessment Rehab Potential Rehabilitation Potential Good Evaluation Complexity Number of Personal Factors/Comorbidities 3 or More Number of Body Systems Impaired 1-2 Clinical Presentation at Evaluation Stable Goals lifting Impairment lifting Impairment unable to warehouse picker 10# from ground Short Term Goal (STG) Pt will be able to warehouse picker 10# from ground for 10 reps without low back pain MET 08/01/23: able to perform 10x10# fwd lumbar flex without low back pain or sciatic symptoms STG Duration 4 weeks Building Admin Goal (LTG) Pt will be able to warehouse picker 20# from ground for 10 reps without low back pain. NOT MET 08/01/23 LTG Duration 8 weeks % improvement Impairment % improvement Short Term Goal (STG) Pt will report 15% improvement in symptoms. MET 08/01/23 STG Duration 3 weeks Building Admin Goal (LTG) Pt will report 50% improvement in symptoms. NOT MET 08/01/23 LTG Duration 6-8 weeks Oswestry Impairment Oswestry score Impairment IE:22 / 50 = 44.0 % Building Admin Goal (LTG) Pt will improve Oswestry score by >8 points to a score <14/ 50. LTG Duration 6-8 week HEP Impairment HEP Short Term Goal (STG) Pt will report performing HEP >3 days/week. MET 08/01/23 STG Duration 3 weeks Assisted Goal (LTG) Pt will report performing HEP >3 days/week. LTG Duration 6-8 weeks Assessment Summary Assessment Pt is slowly progressing toward meeting her goals. She has met 2 STGs. Overall, pt reports that she feels like she is improving in managing her low back pain and sciatic symptoms; however, she is still in considerable pain that limits her mobility and activity tolerance. Pt demos poor trunk/core stability during functional tasks (e.g. squat, deadlift), which is further contributed to by poor postural control. Treatment sessions are focused on decreasing sciatic nerve symptoms and improving pt's movement patterns to include functional stability trunk while promoting safe spinal mobility. Will continue to safely progress activity as tolerated. She is performing a gentle daily ambulation program in order to improve overall endurance. Pt would benefit from skilled PT to address deficits in core/ lumbar strength and mobility, managing nerve symptoms, and improving exercise endurance to promote better activity tolerance and decrease symptoms. Physical Therapy Plan Frequency and Duration Frequency of Treatment 2x/Week Duration of treatment (weeks) 10 Plan of Care Start Date 06/27/23 Plan of Care End Date 09/25/23 Therapeutic Interventions Therapeutic Interventions Joint Mobilizations,Manual Therapy,Neuromuscular Re- education,Patient/Caregiver Education,Self-Care/Home Management,Soft Tissue Mobilization,Taping, Therapeutic Activities, Therapeutic Exercises Modalities Hot Packs Next Visit Focus/Plan Next Note Type Treatment Note Next Visit Plan Continue core strengthening qing pelvis stability, BLE strengthening, sciatic n glide as tolerated (seated), decrease radicular symptoms and encourage mobility
--- NOTE | 2023-08-07 15:18 | PT.OTN ---
Current Diagnoses Other chronic pain (08/07/23) Low back pain, unspecified (08/07/23) Physical Therapy Treatment Note PT-OP-A Visit Information Start: 06/27/23 09:46 Freq: Status: Active Protocol: Document 08/07/23 14:38 SP (Rec: 08/07/23 16:10 SP [id number]) Out-Patient Physical Therapy Visit Information Visit Information Visit Type Treatment Note Visit Note 06/25 PT visits (2022) Visit Start Time 14:38 Visit Stop Time 15:18 Total Visit Minutes 40 Visit Number 10 Number of MEDICAL COLLECTIONS SPECIALIST Visits 1 Evaluation Information Evaluation Date 06/27/23 PT-OP-B Current Condition Start: 06/27/23 09:46 Freq: Status: Active Protocol: Document 06/27/23 12:56 ED (Rec: 06/27/23 13:10 ED [id number]) Current Condition History of Current Condition Onset Date chronic Current Complaints low back pain; R LE radiculopathy History of Current Condition Pt states that she has had on and off again back pain for years. She mentions having significant problems with daily and recreational activities secondary to low back pain and that it makes everything hard. Her pain controls her life and limits what she is able to do. She is no longer working. She mentions having other medical pathologies that don't help her either. She states she has R paresthesia down her R leg into her ankle; it's on the back side of her R LE. She states she can be very high strung and get emotional regarding her pain and other diagnoses. She wants to start taking care of herself and focusing on improving her life . Treatment Goals Patient/Caregiver Goals lose weight and improve confidence PT-OP-C Subjective Start: 06/27/23 09:46 Freq: Status: Active Protocol: Document 08/07/23 14:38 SP (Rec: 08/07/23 16:10 SP [id number]) OP-PT Subjective Patient Comments Patient Comments Pt reports felt ok after last tx. She states not sure how endurance will be today being a later day appt, usuall an am appt when has most energy. She demonstrates guarded upper trunk posturing and LE mobility, no significant lumbar mobility lateral. PT-OP-K Range of Motion Start: 06/27/23 09:46 Freq: Status: Active Protocol: Document 06/27/23 12:56 ED (Rec: 06/27/23 13:10 ED [id number]) Lumbar Spine Range of Motion Lumbar Spine Active Percentage Flexion 100 Extension 100 PT-OP-Q Treatments Start: 06/27/23 09:46 Freq: Status: Active Protocol: Document 08/07/23 14:38 SP (Rec: 08/07/23 16:10 SP [id number]) Cardio Equipment Elliptical Other trial in again in future Treadmill Duration (Minutes) 10 Speed 0>1.5 (5 min) Incline 1.2>1.5- cued arms swing, increase stride- not need UE support Other start of session to warm up Gym Equipment Therapeutic Ball pelvic tilts Exercise Details trial next Therapeutic Exercises Supine Exercises neural glide Supine Exercise Name added to HEP for tingling in LEs Side bilateral Equipment Used strap behind thigh Reps/Minutes x10 Lower Abdominal stab Supine Exercise Name B heels to mat and lift Side bilateral Equipment Used UE FF 90 deg FF, Reps/Minutes 2x10 Comments cues for TA activation Dying bug Supine Exercise Name UE/LE together alternating Side bilateral Equipment Used table Reps/Minutes 2x20 Comments cued for TA activation; ruler under back for tactile cue bridge Supine Exercise Name 1. segmental bridge, 2. hip add with bridge Side bilateral Reps/Minutes 2x15 ea Comments Improved core & glute contraction with segmental pelvic tilt lift/lower Sitting Exercises sciatic nerve glide Sitting Exercise Name reviewed HEP Side bilateral Resistance R tighter than L Reps/Minutes x10 each side Comments good feedback active stretching in HS Other Exercises tail wag Other Exercise Name initiated in PT Side bilateral Reps/Minutes x5 reps Comments ok L, causes tingling down R glut into lateral LE- stopped cat/camel Other Exercise Name Reviewed HEP: flex/ext Reps/Minutes x10 Comments reports painfree, cues for increase PPT Therapeutic Activity Therapeutic Activity gait Name dynamic lumbar mobility Comments cues for pelvic lateral wt shift, causing radicular symptoms down RLE. PT-OP-T Assessment and Plan Start: 06/27/23 09:46 Freq: Status: Active Protocol: Document 08/07/23 14:38 SP (Rec: 08/07/23 16:10 SP [id number]) Physical Therapy Assessment Goals lifting Impairment lifting Impairment unable to orange picker 10# from ground Short Term Goal (STG) Pt will be able to orange picker 10# from ground for 10 reps without low back pain MET 08/01/23: able to perform 10x10# fwd lumbar flex without low back pain or sciatic symptoms STG Duration 4 weeks Sleep Medicine Physician Goal (LTG) Pt will be able to orange picker 20# from ground for 10 reps without low back pain. NOT MET 08/01/23 LTG Duration 8 weeks % improvement Impairment % improvement Short Term Goal (STG) Pt will report 15% improvement in symptoms. MET 08/01/23 STG Duration 3 weeks Sleep Medicine Physician Goal (LTG) Pt will report 50% improvement in symptoms. NOT MET 08/01/23 LTG Duration 6-8 weeks Oswestry Impairment Oswestry score Impairment IE:22 / 50 = 44.0 % Nursing Home Goal (LTG) Pt will improve Oswestry score by >8 points to a score <14/ 50. LTG Duration 6-8 week HEP Impairment HEP Short Term Goal (STG) Pt will report performing HEP >3 days/week. MET 08/01/23 STG Duration 3 weeks Sleep Medicine Physician Goal (LTG) Pt will report performing HEP >3 days/week. LTG Duration 6-8 weeks Assessment Summary Assessment Pt improved TA facilitation addition of segmental pelvic rocking bridge and review cat camel with less lumbar extensor recruitment and almost painfree. Trialed quadruped lumbar rotation, adverse tingling down R leg to lateral ankle so discontinued for now. Pt good response to review sciatic nerve glide for reduction in symptoms. Physical Therapy Plan Frequency and Duration Frequency of Treatment 2x/Week Duration of treatment (weeks) 10 Plan of Care Start Date 06/27/23 Plan of Care End Date 09/25/23 Therapeutic Interventions Therapeutic Interventions Joint Mobilizations,Manual Therapy,Neuromuscular Re- education,Patient/Caregiver Education,Self-Care/Home Management,Soft Tissue Mobilization,Taping, Therapeutic Activities, Therapeutic Exercises Modalities Hot Packs Next Visit Focus/Plan Next Note Type Treatment Note Next Visit Plan Trial lateral side bent seated and light QL stretch, pelvic tilts on tball for lumbar ROM POC: Continue core strengthening qing pelvis stability, BLE strengthening, sciatic n glide as tolerated ( seated), decrease radicular symptoms and encourage mobility, manual STMs R ES/ glut/Piriformis
--- NOTE | 2023-08-14 10:30 | PT.OTN ---
Current Diagnoses Other chronic pain (08/14/23) Low back pain, unspecified (08/14/23) Physical Therapy Treatment Note PT-OP-A Visit Information Start: 06/27/23 09:46 Freq: Status: Active Protocol: Document 08/14/23 09:50 SP (Rec: 08/14/23 10:36 SP [id number]) Out-Patient Physical Therapy Visit Information Visit Information Visit Type Treatment Note Visit Note 07/26 PT visits (2022) 2 after PN Visit Start Time 09:50 Visit Stop Time 10:30 Total Visit Minutes 40 Visit Number 11 Number of PATCH DRILLER Visits 2 Evaluation Information Evaluation Date 06/27/23 PT-OP-B Current Condition Start: 06/27/23 09:46 Freq: Status: Active Protocol: Document 06/27/23 12:56 ED (Rec: 06/27/23 13:10 ED [id number]) Current Condition History of Current Condition Onset Date chronic Current Complaints low back pain; R LE radiculopathy History of Current Condition Pt states that she has had on and off again back pain for years. She mentions having significant problems with daily and recreational activities secondary to low back pain and that it makes everything hard. Her pain controls her life and limits what she is able to do. She is no longer working. She mentions having other medical pathologies that don't help her either. She states she has R paresthesia down her R leg into her ankle; it's on the back side of her R LE. She states she can be very high strung and get emotional regarding her pain and other diagnoses. She wants to start taking care of herself and focusing on improving her life . Treatment Goals Patient/Caregiver Goals lose weight and improve confidence PT-OP-C Subjective Start: 06/27/23 09:46 Freq: Status: Active Protocol: Document 08/14/23 09:50 SP (Rec: 08/14/23 10:36 SP [id number]) OP-PT Subjective Patient Comments Patient Comments Pt reports compliant with HEP but still has tingling down lateral R leg into her foot. She reports her gluteal region is so tight and now lateral hip and proximal HS tight and can't get to release. Pain and tingling happens mostly when sitting upright in bed or sit to long and go to get up. She states a side sleeper and R side sleeping with LLE over R knee onto table least amount tingling. She doesn't get good quality sleep due to tingling and achiness wakes her up and needing to change position. She doesn't sleep on her back due to hurts back with legs out straight. PT-OP-K Range of Motion Start: 06/27/23 09:46 Freq: Status: Active Protocol: Document 06/27/23 12:56 ED (Rec: 06/27/23 13:10 ED [id number]) Lumbar Spine Range of Motion Lumbar Spine Active Percentage Flexion 100 Extension 100 PT-OP-Q Treatments Start: 06/27/23 09:46 Freq: Status: Active Protocol: Document 08/14/23 09:50 SP (Rec: 08/14/23 10:36 SP [id number]) Manual Therapy Treatment Soft Tissue Mobilization R hip Body Location R glut med, piriformis, HS Mobilization Type Instrument Assisted,Strumming, Sustained Pressure,Other Intensity/Depth Moderate Body Position prone, L SL Comments manual STM & MWM hip IR/ ER, ed self racquetball MWM long/ crab position sitting Self-Care/Home Management Treatment Education Other Education Time spent discussion use pillows sidelying and supine ( elevated BLEs) comfort for neutral LS and not tension on gluts and HS comfort. PT-OP-T Assessment and Plan Start: 06/27/23 09:46 Freq: Status: Active Protocol: Document 08/14/23 09:50 SP (Rec: 08/14/23 10:36 SP [id number]) Physical Therapy Assessment Goals lifting Impairment lifting Impairment unable to poultry picking machine tender 10# from ground Short Term Goal (STG) Pt will be able to poultry picking machine tender 10# from ground for 10 reps without low back pain MET 08/01/23: able to perform 10x10# fwd lumbar flex without low back pain or sciatic symptoms STG Duration 4 weeks [facility] Goal (LTG) Pt will be able to poultry picking machine tender 20# from ground for 10 reps without low back pain. NOT MET 08/01/23 LTG Duration 8 weeks % improvement Impairment % improvement Short Term Goal (STG) Pt will report 15% improvement in symptoms. MET 08/01/23 STG Duration 3 weeks [facility] Goal (LTG) Pt will report 50% improvement in symptoms. NOT MET 08/01/23 LTG Duration 6-8 weeks Oswestry Impairment Oswestry score Impairment IE:22 / 50 = 44.0 % Offshore Wind Turbine Technician Goal (LTG) Pt will improve Oswestry score by >8 points to a score <14/ 50. LTG Duration 6-8 week HEP Impairment HEP Short Term Goal (STG) Pt will report performing HEP >3 days/week. MET 08/01/23 STG Duration 3 weeks Offshore Wind Turbine Technician Goal (LTG) Pt will report performing HEP >3 days/week. LTG Duration 6-8 weeks Assessment Summary Assessment Pt reports good releases, best release have ever been able to get but still feel still more tightness that doesn't want to let go. Education on anatomy and mechanics of tight piriformis, glut med, HS better understanding of self carryover STMs to support HEP. Next tx discussed continue core and hip IR strengthening. Physical Therapy Plan Frequency and Duration Frequency of Treatment 2x/Week Duration of treatment (weeks) 10 Plan of Care Start Date 06/27/23 Plan of Care End Date 09/25/23 Therapeutic Interventions Therapeutic Interventions Joint Mobilizations,Manual Therapy,Neuromuscular Re- education,Patient/Caregiver Education,Self-Care/Home Management,Soft Tissue Mobilization,Taping, Therapeutic Activities, Therapeutic Exercises Modalities Hot Packs Next Visit Focus/Plan Next Note Type Treatment Note Next Visit Plan Next tx: trial resisted IR seated, TA, clamshell (?) & reverse clamshell, hip abd /c IR, step ups. POC: Continue core strengthening qing pelvis stability, BLE strengthening, sciatic n glide as tolerated ( seated), decrease radicular symptoms and encourage mobility, manual STMs R ES/ glut/Piriformis
--- NOTE | 2023-08-16 11:27 | PT.OTN ---
Current Diagnoses Other chronic pain (08/16/23) Low back pain, unspecified (08/16/23) Physical Therapy Treatment Note PT-OP-A Visit Information Start: 06/27/23 09:46 Freq: Status: Active Protocol: Document 08/16/23 10:35 NM (Rec: 08/16/23 11:26 NM [id number]) Out-Patient Physical Therapy Visit Information Visit Information Visit Type Treatment Note Visit Note 08/25 PT visits (2022) 3 after PN Visit Start Time 10:30 Visit Stop Time 11:15 Total Visit Minutes 45 Visit Number 12 Evaluation Information Evaluation Date 06/27/23 PT-OP-B Current Condition Start: 06/27/23 09:46 Freq: Status: Active Protocol: Document 06/27/23 12:56 ED (Rec: 06/27/23 13:10 ED [id number]) Current Condition History of Current Condition Onset Date chronic Current Complaints low back pain; R LE radiculopathy History of Current Condition Pt states that she has had on and off again back pain for years. She mentions having significant problems with daily and recreational activities secondary to low back pain and that it makes everything hard. Her pain controls her life and limits what she is able to do. She is no longer working. She mentions having other medical pathologies that don't help her either. She states she has R paresthesia down her R leg into her ankle; it's on the back side of her R LE. She states she can be very high strung and get emotional regarding her pain and other diagnoses. She wants to start taking care of herself and focusing on improving her life . Treatment Goals Patient/Caregiver Goals lose weight and improve confidence PT-OP-C Subjective Start: 06/27/23 09:46 Freq: Status: Active Protocol: Document 08/16/23 10:35 NM (Rec: 08/16/23 11:26 NM [id number]) OP-PT Subjective Patient Comments Patient Comments Pt reports that she didn't sleep well last night. Her R glutes feel significantly after last session but the relief is short term. She reports the most tenderness in her R hamstring. Follow up with on 08/19. PT-OP-K Range of Motion Start: 06/27/23 09:46 Freq: Status: Active Protocol: Document 06/27/23 12:56 ED (Rec: 06/27/23 13:10 ED [id number]) Lumbar Spine Range of Motion Lumbar Spine Active Percentage Flexion 100 Extension 100 PT-OP-Q Treatments Start: 06/27/23 09:46 Freq: Status: Active Protocol: Document 08/16/23 10:35 NM (Rec: 08/16/23 11:26 NM [id number]) Cardio Equipment Treadmill Duration (Minutes) 5 Speed 1.2 Incline 1 Other warm up; cues for heel >toe Therapeutic Exercises Supine Exercises neural glide Supine Exercise Name with short term hip ext stretch Side bilateral Equipment Used strap behind thigh Reps/Minutes x10 Lower Abdominal stab Supine Exercise Name B heels to mat and lift Side bilateral Equipment Used UE FF 90 deg FF, holding ball with klaudia 5 Reps/Minutes 1x10x5 Comments cues for TA activation; entire core Prone Exercises HSC Prone Exercise Name HS curl Side bilateral Resistance lvl 1 tb around ankles Reps/Minutes 1x10 Comments reports a stretching feeling but no pain willian pose Prone Exercise Name with knees together, feet apart Side bilateral Reps/Minutes 1x60 Sidelying Exercises reverse clams Sidelying Exercise Name HEP; Side right Reps/Minutes 2x10 Comments cues for correct execution; manual pressure on piriformis hip abduction Sidelying Exercise Name HEP Side right Reps/Minutes 2x10 Comments fatigueing; cues for heel up, toe down for glute med Other Exercises Quadruped Other Exercise Name 1. neutral spine > cat flex, 2 . LS lateral flex Side bilateral Reps/Minutes 1x10 ea Comments no sciatic sx, reports HS tightness Manual Therapy Treatment Soft Tissue Mobilization R hip Body Location R glut med, piriformis, HS Mobilization Type Instrument Assisted,Strumming, Sustained Pressure,Other Intensity/Depth Deep Body Position prone, L SL Comments manual STM & MWM hip IR/ ER, hamstring curl. Pt reports relief PT-OP-T Assessment and Plan Start: 06/27/23 09:46 Freq: Status: Active Protocol: Document 08/16/23 10:35 NM (Rec: 08/16/23 11:26 NM [id number]) Physical Therapy Assessment Goals lifting Impairment lifting Impairment unable to picking tech 10# from ground Short Term Goal (STG) Pt will be able to picking tech 10# from ground for 10 reps without low back pain MET 08/01/23: able to perform 10x10# fwd lumbar flex without low back pain or sciatic symptoms STG Duration 4 weeks Mcfp Goal (LTG) Pt will be able to picking tech 20# from ground for 10 reps without low back pain. NOT MET 08/01/23 LTG Duration 8 weeks % improvement Impairment % improvement Short Term Goal (STG) Pt will report 15% improvement in symptoms. MET 08/01/23 STG Duration 3 weeks Welding Pantograph Machine Operator Goal (LTG) Pt will report 50% improvement in symptoms. NOT MET 08/01/23 LTG Duration 6-8 weeks Oswestry Impairment Oswestry score Impairment IE:22 / 50 = 44.0 % Welding Pantograph Machine Operator Goal (LTG) Pt will improve Oswestry score by >8 points to a score <14/ 50. LTG Duration 6-8 week HEP Impairment HEP Short Term Goal (STG) Pt will report performing HEP >3 days/week. MET 08/01/23 STG Duration 3 weeks Mcfp Goal (LTG) Pt will report performing HEP >3 days/week. LTG Duration 6-8 weeks Assessment Summary Assessment Pt reports improvement in symptom management with neural glides, piriformis/proximal hamstring soft tissue mobilization, and hip IR/ER/ abd strengthening. She continues to fatigue easily due to BLE weakness, qing hip extensors/abductors/rotators. Initiated sidelying hip abd, hamstring curls and continued with quadruped spine mobility. Pt requires cues for correct exercise execution, qing for targeting glute medius, and cues for strong core contraction to assist stabilization. Manual tmt to decrease restrictions of sciatic nerve at proximal hamstring insertion and under piriformis. Pt tends to try to stabilize her lumbar spine and core with constant glute contraction. PT educated pt to try to be more aware of sandra glutes vs using her core to stabilize when performing ADLs. HEP issued: reverse clam, sidelying hip abd, prone HSC. Pt would benefit from skilled PT for improved symptom management, BLE strengthening, core/trunk stabilization, and endurance for improved activity and ADL tolerance. Physical Therapy Plan Frequency and Duration Frequency of Treatment 2x/Week Duration of treatment (weeks) 10 Plan of Care Start Date 06/27/23 Plan of Care End Date 09/25/23 Therapeutic Interventions Therapeutic Interventions Joint Mobilizations,Manual Therapy,Neuromuscular Re- education,Patient/Caregiver Education,Self-Care/Home Management,Soft Tissue Mobilization,Taping, Therapeutic Activities, Therapeutic Exercises Modalities Hot Packs Next Visit Focus/Plan Next Note Type Treatment Note Next Visit Plan Next tx: trial resisted IR seated. Cont TA, clamshell (?) & reverse clamshell, hip abd /c IR. Trial step ups. Follow up about Dr vu on Saturday POC: Continue core strengthening qing pelvis stability, BLE strengthening, sciatic n glide as tolerated ( seated), decrease radicular symptoms and encourage mobility, manual STMs R ES/ glut/Piriformis
--- NOTE | 2023-08-21 10:32 | PT.OTN ---
Current Diagnoses Other chronic pain (08/21/23) Low back pain, unspecified (08/21/23) Physical Therapy Treatment Note PT-OP-A Visit Information Start: 06/27/23 09:46 Freq: Status: Active Protocol: Document 08/21/23 09:51 SP (Rec: 08/21/23 10:35 SP [id number]) Out-Patient Physical Therapy Visit Information Visit Information Visit Type Treatment Note Visit Note PT visits (2022) 4 after PN Visit Start Time 09:51 Visit Stop Time 10:32 Total Visit Minutes 41 Visit Number 13 Number of SPORTS MANAGER Visits 1 Evaluation Information Evaluation Date 06/27/23 PT-OP-B Current Condition Start: 06/27/23 09:46 Freq: Status: Active Protocol: Document 06/27/23 12:56 ED (Rec: 06/27/23 13:10 ED [id number]) Current Condition History of Current Condition Onset Date chronic Current Complaints low back pain; R LE radiculopathy History of Current Condition Pt states that she has had on and off again back pain for years. She mentions having significant problems with daily and recreational activities secondary to low back pain and that it makes everything hard. Her pain controls her life and limits what she is able to do. She is no longer working. She mentions having other medical pathologies that don't help her either. She states she has R paresthesia down her R leg into her ankle; it's on the back side of her R LE. She states she can be very high strung and get emotional regarding her pain and other diagnoses. She wants to start taking care of herself and focusing on improving her life . Treatment Goals Patient/Caregiver Goals lose weight and improve confidence PT-OP-C Subjective Start: 06/27/23 09:46 Freq: Status: Active Protocol: Document 08/21/23 09:51 SP (Rec: 08/21/23 10:35 SP [id number]) OP-PT Subjective Patient Comments Patient Comments Pt reports on increase dose BP 5mg med with checks, has referral for MRI and acupuncture for further imaging and assist for pain control vs injections if needed. Follow Sep 19 Dr Anderson. PT-OP-K Range of Motion Start: 06/27/23 09:46 Freq: Status: Active Protocol: Document 06/27/23 12:56 ED (Rec: 06/27/23 13:10 ED [id number]) Lumbar Spine Range of Motion Lumbar Spine Active Percentage Flexion 100 Extension 100 PT-OP-Q Treatments Start: 06/27/23 09:46 Freq: Status: Active Protocol: Document 08/21/23 09:51 SP (Rec: 08/21/23 10:35 SP [id number]) Cardio Equipment Treadmill Duration (Minutes) 7 Speed 1.2 Incline 1 Other warm up; cues for heel >toe Therapeutic Exercises Supine Exercises neural glide Supine Exercise Name with short term hip ext stretch Side bilateral Equipment Used towel behind thigh Reps/Minutes x10 Comments good feedback active HS stretch Lower Abdominal stab Supine Exercise Name Bridge holding 45cm tball over chest Side bilateral Equipment Used UE FF 90 deg FF, holding ball with klaudia 5 Reps/Minutes 1x10x5 Comments cues for TA activation; entire core Prone Exercises HSC Prone Exercise Name HS curl Side bilateral Resistance lvl 1 tb around ankles Reps/Minutes 1x10 Comments cued lay head down on arms, good HS effort no LB recruitment, painfree willian pose Side bilateral Reps/Minutes 1x60 Comments with knees together, feet apart Sidelying Exercises reverse clams Sidelying Exercise Name HEP; Side right Reps/Minutes 2x10 Comments cues for correct execution Standing Exercises squat Standing Exercise Name review mechanics Other Exercises Edson curl Side bilateral Resistance 2# tball because arms hurt Reps/Minutes 1x10 Comments cues for segmental flexion Quadruped Other Exercise Name 1. neutral spine > cat flex, 2 . LS lateral flex Side bilateral Reps/Minutes 1. x10, 2. AROM x10 then hold 2 sec x10 Comments no sciatic sx, reports HS tightness Manual Therapy Treatment Soft Tissue Mobilization R hip Body Location R glut med, piriformis, HS Mobilization Type Instrument Assisted,Strumming, Sustained Pressure,Other Intensity/Depth Deep Body Position prone, L SL Comments manual STM & MWM hip IR/ ER, hamstring curl. Pt reports relief PT-OP-T Assessment and Plan Start: 06/27/23 09:46 Freq: Status: Active Protocol: Document 08/21/23 09:51 SP (Rec: 08/21/23 10:35 SP [id number]) Physical Therapy Assessment Goals lifting Impairment lifting Impairment unable to cotton picking machine operator 10# from ground Short Term Goal (STG) Pt will be able to cotton picking machine operator 10# from ground for 10 reps without low back pain MET 08/01/23: able to perform 10x10# fwd lumbar flex without low back pain or sciatic symptoms STG Duration 4 weeks Television Inspector Goal (LTG) Pt will be able to cotton picking machine operator 20# from ground for 10 reps without low back pain. NOT MET 08/01/23 LTG Duration 8 weeks % improvement Impairment % improvement Short Term Goal (STG) Pt will report 15% improvement in symptoms. MET 08/01/23 STG Duration 3 weeks Television Inspector Goal (LTG) Pt will report 50% improvement in symptoms. NOT MET 08/01/23 LTG Duration 6-8 weeks Oswestry Impairment Oswestry score Impairment IE:22 / 50 = 44.0 % Senior Living Goal (LTG) Pt will improve Oswestry score by >8 points to a score <14/ 50. LTG Duration 6-8 week HEP Impairment HEP Short Term Goal (STG) Pt will report performing HEP >3 days/week. MET 08/01/23 STG Duration 3 weeks Television Inspector Goal (LTG) Pt will report performing HEP >3 days/week. LTG Duration 6-8 weeks Assessment Summary Assessment Pt good hip abd and core strengthening this tx, cues for slower movement to allow facilitation with less LB/ piriformis recruitment. [place] ok in LB during resisted trunk flexion. Good piriformis release post manual. Physical Therapy Plan Frequency and Duration Frequency of Treatment 2x/Week Duration of treatment (weeks) 10 Plan of Care Start Date 06/27/23 Plan of Care End Date 09/25/23 Therapeutic Interventions Therapeutic Interventions Joint Mobilizations,Manual Therapy,Neuromuscular Re- education,Patient/Caregiver Education,Self-Care/Home Management,Soft Tissue Mobilization,Taping, Therapeutic Activities, Therapeutic Exercises Modalities Hot Packs Next Visit Focus/Plan Next Note Type Treatment Note Next Visit Plan Next tx: trial resisted IR seated. Cont TA, clamshell (?) & reverse clamshell, hip abd /c IR. Trial step ups. Follow up about Dr vu on Saturday POC: Continue core strengthening qign pelvis stability, BLE strengthening, sciatic n glide as tolerated ( seated), decrease radicular symptoms and encourage mobility, manual STMs R ES/ glut/Piriformis
--- NOTE | 2023-08-30 16:19 | PT.OTN ---
Current Diagnoses Other chronic pain (08/30/23) Low back pain, unspecified (08/30/23) Physical Therapy Treatment Note PT-OP-A Visit Information Start: 06/27/23 09:46 Freq: Status: Active Protocol: Document 08/30/23 09:53 NM (Rec: 08/30/23 10:30 NM [id number]) Out-Patient Physical Therapy Visit Information Visit Information Visit Type Progress Note Visit Note PT visits (2022) 5 after PN Pt late Visit Start Time 09:50 Visit Stop Time 10:30 Total Visit Minutes 40 Visit Number 14 Evaluation Information Evaluation Date 06/27/23 PT-OP-B Current Condition Start: 06/27/23 09:46 Freq: Status: Active Protocol: Document 06/27/23 12:56 ED (Rec: 06/27/23 13:10 ED [id number]) Current Condition History of Current Condition Onset Date chronic Current Complaints low back pain; R LE radiculopathy History of Current Condition Pt states that she has had on and off again back pain for years. She mentions having significant problems with daily and recreational activities secondary to low back pain and that it makes everything hard. Her pain controls her life and limits what she is able to do. She is no longer working. She mentions having other medical pathologies that don't help her either. She states she has R paresthesia down her R leg into her ankle; it's on the back side of her R LE. She states she can be very high strung and get emotional regarding her pain and other diagnoses. She wants to start taking care of herself and focusing on improving her life . Treatment Goals Patient/Caregiver Goals lose weight and improve confidence PT-OP-C Subjective Start: 06/27/23 09:46 Freq: Status: Active Protocol: Document 08/30/23 09:53 NM (Rec: 08/30/23 10:30 NM [id number]) OP-PT Subjective Patient Comments Patient Comments Pt reports that she had her injections yesterday for angioedema, so her arms are very sore and she is unable to put weight onto her arms. She has an appt on 09/16 with ortho (Sánchez). She also recently had MRI but does not know results yet. Pt reports improvement in symptoms. PT-OP-K Range of Motion Start: 06/27/23 09:46 Freq: Status: Active Protocol: Document 06/27/23 12:56 ED (Rec: 06/27/23 13:10 ED [id number]) Lumbar Spine Range of Motion Lumbar Spine Active Percentage Flexion 100 Extension 100 PT-OP-Q Treatments Start: 06/27/23 09:46 Freq: Status: Active Protocol: Document 08/30/23 09:53 NM (Rec: 08/30/23 10:30 NM [id number]) Therapeutic Exercises Supine Exercises Lower Abdominal stab Supine Exercise Name Bridge holding 45cm tball over chest Side bilateral Resistance orange ball btwn knees for add Equipment Used UE FF 90 deg FF, holding ball with klaudia 5 Reps/Minutes 2x10x5 Comments cues for TA activation; entire core, cue for post pelvic tilt Prone Exercises HSC Prone Exercise Name HS curl Side bilateral Resistance lvl 2 tb around ankles Reps/Minutes 1x15 Comments cued lay head down on arms, good HS effort no LB recruitment, painfree Sidelying Exercises reverse clams Side bilateral Resistance lvl 1 tb around ankles Equipment Used light blue tb around ankles Reps/Minutes 2x10 ea with brief hold Comments cues for slight hold, full ROM hip abduction Sidelying Exercise Name 1. with hip IR, 2. with hip ER Side bilateral Reps/Minutes 1x12 ea Comments fatigueing Sitting Exercises Hip IR Sitting Exercise Name trialed Comments limited IR range, so return to sidelying sciatic nerve glide Side right Reps/Minutes 1x10 Comments reports relief in sciatic symptoms Standing Exercises squat Standing Exercise Name trialed to meet goal; able to perform up to 10# w/o pain Equipment Used 20# Reps/Minutes 5 reps Comments 3/10 pain, but inc lordosis PT-OP-T Assessment and Plan Start: 06/27/23 09:46 Freq: Status: Active Protocol: Document 08/30/23 09:53 NM (Rec: 08/30/23 10:30 NM [id number]) Physical Therapy Assessment Goals lifting Impairment lifting Impairment unable to pickling machine operator 10# from ground Short Term Goal (STG) Pt will be able to pickling machine operator 10# from ground for 10 reps without low back pain MET 08/01/23: able to perform 10x10# fwd lumbar flex without low back pain or sciatic symptoms STG Duration 4 weeks Boot And Shoe Laborer Goal (LTG) Pt will be able to pickling machine operator 20# from ground for 10 reps without low back pain. NOT MET 08/01/23 NOT MET 08/30/23: 3/10 5 reps, extreme lordosis LTG Duration 8 weeks NOT MET % improvement Impairment % improvement Short Term Goal (STG) Pt will report 15% improvement in symptoms. MET 08/01/23 STG Duration 3 weeks Boot And Shoe Laborer Goal (LTG) Pt will report 50% improvement in symptoms. NOT MET 08/30/23, reports 20% improvement NOT MET 08/01/23 LTG Duration 6-8 weeks NOT MET Oswestry Impairment Oswestry score Impairment IE:22 / 50 = 44.0 % Boot And Shoe Laborer Goal (LTG) Pt will improve Oswestry score by >8 points to a score <14/ 50. 08/30/23: PROGRESSING, 1750 LTG Duration 6-8 week PROGRESSING HEP Impairment HEP Short Term Goal (STG) Pt will report performing HEP >3 days/week. MET 08/01/23 STG Duration 3 weeks Boot And Shoe Laborer Goal (LTG) Pt will report performing HEP >3 days/week. MET 08/30/23 LTG Duration 6-8 weeks Assessment Summary Assessment Decreased session time due to pt late today. Overall, pt demos improvement in segmental bridge, not moving into lumbar extension or provoking radicular symptoms. She requires cues for a posterior pelvic tilt and greater core activation, but demos improved TA activation since last few sessions. Continued with sciatic nerve glides as pt reports relief and hamstring strengthening to improve mobilization/strengthening of weak muscls. Due to limited hip IR AROM, pt has difficulty progressing to seated hip IR strengthening, so continued with exercise in sidelying. She continues to fatigue quickly with sidelying hip abd + hip IR (added ER today), but reports no increase in sciatic symptoms or increased discomfort at piriformis during/after activity. Pt continues to be limited in her ability to move into different spinal motions, especially lumbar extension without pain and increased radicular symptoms. Trialed lifting 20# from floor to address goal; able to perform 5 reps but with difficulty. Due to excessive lumbar lordosis, pt is unable lift > 10# due to pain. HEP issued: prone hamstring curl. Physical Therapy Plan Frequency and Duration Frequency of Treatment 2x/Week Duration of treatment (weeks) 10 Plan of Care Start Date 06/27/23 Plan of Care End Date 09/25/23 Therapeutic Interventions Therapeutic Interventions Joint Mobilizations,Manual Therapy,Neuromuscular Re- education,Patient/Caregiver Education,Self-Care/Home Management,Soft Tissue Mobilization,Taping, Therapeutic Activities, Therapeutic Exercises Modalities Hot Packs Next Visit Focus/Plan Next Note Type Progress Note Next Visit Plan Next tx: trial resisted IR seated. Cont TA, clamshell (?) & reverse clamshell, hip abd /c IR. Trial step ups. POC: Continue core strengthening qing pelvis stability, BLE strengthening, sciatic n glide as tolerated ( seated), decrease radicular symptoms and encourage mobility, manual STMs R ES/ glut/Piriformis
--- NOTE | 2023-08-30 16:22 | PT.OPPN ---
Current Diagnoses Other chronic pain (08/30/23) Low back pain, unspecified (08/30/23) Physical Therapy Progress Note PT-OP-A Visit Information Start: 06/27/23 09:46 Freq: Status: Active Protocol: Document 08/30/23 09:53 NM (Rec: 08/30/23 10:30 NM [id number]) Out-Patient Physical Therapy Visit Information Visit Information Visit Type Progress Note Visit Note PT visits (2022) 5 after PN Pt late Visit Start Time 09:50 Visit Stop Time 10:30 Total Visit Minutes 40 Visit Number 14 Evaluation Information Evaluation Date 06/27/23 PT-OP-B Current Condition Start: 06/27/23 09:46 Freq: Status: Active Protocol: Document 06/27/23 12:56 ED (Rec: 06/27/23 13:10 ED [id number]) Current Condition History of Current Condition Onset Date chronic Current Complaints low back pain; R LE radiculopathy History of Current Condition Pt states that she has had on and off again back pain for years. She mentions having significant problems with daily and recreational activities secondary to low back pain and that it makes everything hard. Her pain controls her life and limits what she is able to do. She is no longer working. She mentions having other medical pathologies that don't help her either. She states she has R paresthesia down her R leg into her ankle; it's on the back side of her R LE. She states she can be very high strung and get emotional regarding her pain and other diagnoses. She wants to start taking care of herself and focusing on improving her life . Treatment Goals Patient/Caregiver Goals lose weight and improve confidence PT-OP-C Subjective Start: 06/27/23 09:46 Freq: Status: Active Protocol: Document 08/30/23 09:53 NM (Rec: 08/30/23 10:30 NM [id number]) OP-PT Subjective Patient Comments Patient Comments Pt reports that she had her injections yesterday for angioedema, so her arms are very sore and she is unable to put weight onto her arms. She has an appt on 09/16 with ortho (Sánchez). She also recently had MRI but does not know results yet. Pt reports improvement in symptoms. PT-OP-K Range of Motion Start: 06/27/23 09:46 Freq: Status: Active Protocol: Document 06/27/23 12:56 ED (Rec: 06/27/23 13:10 ED [id number]) Lumbar Spine Range of Motion Lumbar Spine Active Percentage Flexion 100 Extension 100 PT-OP-T Assessment and Plan Start: 06/27/23 09:46 Freq: Status: Active Protocol: Document 08/30/23 09:53 NM (Rec: 08/30/23 10:30 NM [id number]) Physical Therapy Assessment Goals lifting Impairment lifting Impairment unable to roll picker 10# from ground Short Term Goal (STG) Pt will be able to roll picker 10# from ground for 10 reps without low back pain MET 08/01/23: able to perform 10x10# fwd lumbar flex without low back pain or sciatic symptoms STG Duration 4 weeks Print Project Manager Goal (LTG) Pt will be able to roll picker 20# from ground for 10 reps without low back pain. NOT MET 08/01/23 NOT MET 08/30/23: 3/10 5 reps, extreme lordosis LTG Duration 8 weeks NOT MET % improvement Impairment % improvement Short Term Goal (STG) Pt will report 15% improvement in symptoms. MET 08/01/23 STG Duration 3 weeks Correction Goal (LTG) Pt will report 50% improvement in symptoms. NOT MET 08/30/23, reports 20% improvement NOT MET 08/01/23 LTG Duration 6-8 weeks NOT MET Oswestry Impairment Oswestry score Impairment IE:22 / 50 = 44.0 % Correction Goal (LTG) Pt will improve Oswestry score by >8 points to a score <14/ 50. 08/30/23: PROGRESSING, 17/50 LTG Duration 6-8 week PROGRESSING HEP Impairment HEP Short Term Goal (STG) Pt will report performing HEP >3 days/week. MET 08/01/23 STG Duration 3 weeks Print Project Manager Goal (LTG) Pt will report performing HEP >3 days/week. MET 08/30/23 LTG Duration 6-8 weeks Progress Towards Goals Progress Towards Goals Progressing Toward Goals,Slow Progress - Other,Goals Met Progress Comments Met 1/4 goal Assessment Summary Assessment Pt has been seen in clinic 13x since IE for low back pain with R radicular symptoms along sciatic distribution. Pt reports improvement in symptoms; however, her pain and radicular symptoms continue to limit her ability to perform ADLs and participate in recreational activites. Currently, she reports 20% improvement in symptoms. Pt has met 1/4 LTG and is progressing toward a 1 LTG. She reports improvement ability to participate in ADLs but continues to have difficulty due to pain and radiation down RLE. Pt would benefit from skilled PT to address impairments in trunk strength and mobility, core stabilization, and endurance, in order to decrease symptoms, improve activity tolerance and improve QOL. Physical Therapy Plan Frequency and Duration Frequency of Treatment 2x/Week Duration of treatment (weeks) 10 Plan of Care Start Date 06/27/23 Plan of Care End Date 09/25/23 Therapeutic Interventions Therapeutic Interventions Joint Mobilizations,Manual Therapy,Neuromuscular Re- education,Patient/Caregiver Education,Self-Care/Home Management,Soft Tissue Mobilization,Taping, Therapeutic Activities, Therapeutic Exercises Modalities Hot Packs Next Visit Focus/Plan Next Note Type Progress Note Next Visit Plan Next tx: trial resisted IR seated. Cont TA, clamshell (?) & reverse clamshell, hip abd /c IR. Trial step ups. POC: Continue core strengthening qing pelvis stability, BLE strengthening, sciatic n glide as tolerated ( seated), decrease radicular symptoms and encourage mobility, manual STMs R ES/ glut/Piriformis
--- NOTE | 2023-09-03 15:41 | PT.OTN ---
Current Diagnoses Other chronic pain (09/03/23) Low back pain, unspecified (09/03/23) Physical Therapy Treatment Note PT-OP-A Visit Information Start: 06/27/23 09:46 Freq: Status: Active Protocol: Document 09/03/23 13:01 NM (Rec: 09/03/23 13:47 NM [id number]) Out-Patient Physical Therapy Visit Information Visit Information Visit Type Treatment Note Visit Note 09/25 for 2023 1 after PN Visit Start Time 13:02 Visit Stop Time 13:45 Total Visit Minutes 43 Visit Number 15 Evaluation Information Evaluation Date 06/27/23 PT-OP-B Current Condition Start: 06/27/23 09:46 Freq: Status: Active Protocol: Document 06/27/23 12:56 ED (Rec: 06/27/23 13:10 ED [id number]) Current Condition History of Current Condition Onset Date chronic Current Complaints low back pain; R LE radiculopathy History of Current Condition Pt states that she has had on and off again back pain for years. She mentions having significant problems with daily and recreational activities secondary to low back pain and that it makes everything hard. Her pain controls her life and limits what she is able to do. She is no longer working. She mentions having other medical pathologies that don't help her either. She states she has R paresthesia down her R leg into her ankle; it's on the back side of her R LE. She states she can be very high strung and get emotional regarding her pain and other diagnoses. She wants to start taking care of herself and focusing on improving her life . Treatment Goals Patient/Caregiver Goals lose weight and improve confidence PT-OP-C Subjective Start: 06/27/23 09:46 Freq: Status: Active Protocol: Document 09/03/23 13:01 NM (Rec: 09/03/23 13:47 NM [id number]) OP-PT Subjective Patient Comments Patient Comments Pt reports 7/10 low back pain and R sciatic symptoms. She has been doing a lot of standing today while washing dishes and cooking. She has also been sleeping poorly. She has her appt with the spine doctor on 09/16. PT-OP-K Range of Motion Start: 06/27/23 09:46 Freq: Status: Active Protocol: Document 06/27/23 12:56 ED (Rec: 06/27/23 13:10 ED [id number]) Lumbar Spine Range of Motion Lumbar Spine Active Percentage Flexion 100 Extension 100 PT-OP-Q Treatments Start: 06/27/23 09:46 Freq: Status: Active Protocol: Document 09/03/23 13:01 NM (Rec: 09/03/23 13:47 NM [id number]) Therapeutic Exercises Supine Exercises Hip ER stretch Supine Exercise Name figure 4 with knee flexed Side bilateral Equipment Used towel to assist with knee flex Reps/Minutes 1x30 ea Comments cues for gentle stretch neural glide Supine Exercise Name with short term hip ext stretch (Df/PF 1st, then knee ext/flex) Side bilateral Equipment Used towel behind thigh Reps/Minutes x10 ea Comments good feedback active HS stretch Prone Exercises hip IR stretch Prone Exercise Name issued as HEP in supine for convenience Side bilateral Equipment Used head on pillows Reps/Minutes 1x30 Comments cues to let feet fall to table , no pain reported willian pose Side bilateral Reps/Minutes 1x60 Comments with knees together, feet apart Sitting Exercises lumbar lateral flexion Sitting Exercise Name for hip mobility, trunk mobility Side bilateral Resistance AROM only Equipment Used orange SB Reps/Minutes 1x10 ea Comments reports no pain, limited trunk ROM Hip IR Side bilateral Resistance light blue tb around ankles Equipment Used with small teal ball btwn knees for hip ADD Reps/Minutes 2x10 ea Comments cued for greater hip IR lumbar flexion Side bilateral Resistance AROM Equipment Used orange sb Reps/Minutes 1x10 Comments cues for no lumbar ext, just neutral Standing Exercises step up Side bilateral Equipment Used 6 step Reps/Minutes 1x10 ea (alternating) Comments cues for pain free motion, reports hamstring tightness but no pain Other Exercises Quadruped Other Exercise Name hip CARS (limited range) Side bilateral Reps/Minutes 1x5 ea direction Comments no sciatic sx, no back pain; cues for TA activation Manual Therapy Treatment Soft Tissue Mobilization R hip Body Location R glut med, piriformis, HS Mobilization Type Instrument Assisted,Strumming, Sustained Pressure,Other Intensity/Depth Deep Body Position prone, L SL Comments manual STM & MWM hip IR/ ER, hamstring curl. Pt reports min relief. PT-OP-T Assessment and Plan Start: 06/27/23 09:46 Freq: Status: Active Protocol: Document 09/03/23 13:01 NM (Rec: 09/03/23 13:47 NM [id number]) Physical Therapy Assessment Goals lifting Impairment lifting Impairment unable to rock picker 10# from ground Short Term Goal (STG) Pt will be able to rock picker 10# from ground for 10 reps without low back pain MET 08/01/23: able to perform 10x10# fwd lumbar flex without low back pain or sciatic symptoms STG Duration 4 weeks Bag Washer Goal (LTG) Pt will be able to rock picker 20# from ground for 10 reps without low back pain. NOT MET 08/01/23 NOT MET 08/30/23: 3/10 5 reps, extreme lordosis LTG Duration 8 weeks NOT MET % improvement Impairment % improvement Short Term Goal (STG) Pt will report 15% improvement in symptoms. MET 08/01/23 STG Duration 3 weeks Mcfp Goal (LTG) Pt will report 50% improvement in symptoms. NOT MET 08/30/23, reports 20% improvement NOT MET 08/01/23 LTG Duration 6-8 weeks NOT MET Oswestry Impairment Oswestry score Impairment IE:22 / 50 = 44.0 % Bag Washer Goal (LTG) Pt will improve Oswestry score by >8 points to a score <14/ 50. 08/30/23: PROGRESSING, 17/50 LTG Duration 6-8 week PROGRESSING HEP Impairment HEP Short Term Goal (STG) Pt will report performing HEP >3 days/week. MET 08/01/23 STG Duration 3 weeks Bag Washer Goal (LTG) Pt will report performing HEP >3 days/week. MET 08/30/23 LTG Duration 6-8 weeks Assessment Summary Assessment Pt tolerated session well despite increased pain upon presentation to clinic. Added seated hip IR with same level of resistance progress from sidelying clam and to improve hip IR ROM. Initiated hip IR and ER stretching to promote relaxation of glutes and hip internal rotators; also added hip CARs and seated trunk mobility on bolivian ball with core stabilization to promote improved B hip mobility. Pt reports no increased back pain or sciatic symptoms with added exercises. Trialed step ups today on 6 step, alternating. Pt demos poor pelvic stability during step, but no reported increase in low back pain. PT educated pt on not overdoing exercise or ADLs when help is available and she is feeling well. HEP: supine hip ER and IR stretches . Pt would benefit from skilled PT to address limitations in trunk ROM and strength, core stability, hip mobility, posture, and endurance in order to improve symptom management and activity tolerance. Physical Therapy Plan Frequency and Duration Frequency of Treatment 2x/Week Duration of treatment (weeks) 10 Plan of Care Start Date 06/27/23 Plan of Care End Date 09/25/23 Therapeutic Interventions Therapeutic Interventions Joint Mobilizations,Manual Therapy,Neuromuscular Re- education,Patient/Caregiver Education,Self-Care/Home Management,Soft Tissue Mobilization,Taping, Therapeutic Activities, Therapeutic Exercises Modalities Hot Packs Next Visit Focus/Plan Next Note Type Progress Note Next Visit Plan Next tx: resisted IR seated. Cont TA, clamshell & reverse clamshell, hip abd /c IR. Add step ups. Trial RDL with slight hip IR, cont hip mobility and do IR stretch POC: Continue core strengthening qing pelvis stability, BLE strengthening, sciatic n glide as tolerated ( seated), decrease radicular symptoms and encourage mobility, manual STMs R ES/ glut/Piriformis
--- NOTE | 2023-09-05 11:34 | PT.OTN ---
Current Diagnoses Other chronic pain (09/05/23) Low back pain, unspecified (09/05/23) Physical Therapy Treatment Note PT-OP-A Visit Information Start: 06/27/23 09:46 Freq: Status: Active Protocol: Document 09/05/23 10:33 NM (Rec: 09/05/23 11:34 NM [id number]) Out-Patient Physical Therapy Visit Information Visit Information Visit Type Treatment Note Visit Note 10/26 for 2023 2 after PN Visit Start Time 10:35 Visit Stop Time 11:15 Total Visit Minutes 40 Visit Number 16 Evaluation Information Evaluation Date 06/27/23 PT-OP-B Current Condition Start: 06/27/23 09:46 Freq: Status: Active Protocol: Document 06/27/23 12:56 ED (Rec: 06/27/23 13:10 ED [id number]) Current Condition History of Current Condition Onset Date chronic Current Complaints low back pain; R LE radiculopathy History of Current Condition Pt states that she has had on and off again back pain for years. She mentions having significant problems with daily and recreational activities secondary to low back pain and that it makes everything hard. Her pain controls her life and limits what she is able to do. She is no longer working. She mentions having other medical pathologies that don't help her either. She states she has R paresthesia down her R leg into her ankle; it's on the back side of her R LE. She states she can be very high strung and get emotional regarding her pain and other diagnoses. She wants to start taking care of herself and focusing on improving her life . Treatment Goals Patient/Caregiver Goals lose weight and improve confidence PT-OP-C Subjective Start: 06/27/23 09:46 Freq: Status: Active Protocol: Document 09/05/23 10:33 NM (Rec: 09/05/23 11:34 NM [id number]) OP-PT Subjective Patient Comments Patient Comments Pt reports 7/10 R glute pain. She reports difficulty sleeping due to pain last night. Her appt with the spine doctor is on 09/16. PT-OP-K Range of Motion Start: 06/27/23 09:46 Freq: Status: Active Protocol: Document 06/27/23 12:56 ED (Rec: 06/27/23 13:10 ED [id number]) Lumbar Spine Range of Motion Lumbar Spine Active Percentage Flexion 100 Extension 100 PT-OP-Q Treatments Start: 06/27/23 09:46 Freq: Status: Active Protocol: Document 09/05/23 10:33 NM (Rec: 09/05/23 11:34 NM [id number]) Cardio Equipment Treadmill Duration (Minutes) 4 Speed 1.0 Incline 1.0 Other warm up Therapeutic Exercises Supine Exercises Hip IR stretch Supine Exercise Name HEP Side bilateral Reps/Minutes 2x30 ea Comments pain free, cues for gentle stretch Sitting Exercises HSC Side bilateral Resistance lvl 2 teal tb around ankles Reps/Minutes 2x10 ea Comments reports no pain, but can feel muscles working Standing Exercises RDL + hip IR Standing Exercise Name min RDL motion, more hip IR ( airplane) Side bilateral Equipment Used medium blue ball in hands Reps/Minutes 1x10 Comments to promote hip IR; pain free but fatiguing, reports gentle stretch Hip ext Standing Exercise Name with fwd trunk flex (lean on stairs) to prevent lumbar ext Side bilateral Equipment Used for prox hamstring Reps/Minutes 1x10 ea Comments cues for trunk flex to minimize sciatic sx; no symptoms reported Stretch Standing Exercise Name 1. HS, 2. calf stretch Side bilateral Equipment Used 6 stairs Reps/Minutes 1. 5x10, 2. 1x30 ea Comments as tolerated; pt reports no pain or sciatic symptoms Manual Therapy Treatment Soft Tissue Mobilization Lumbar spine Body Location L1-L5, QL, paraspinals Mobilization Type Cross-Friction,Sustained Pressure Intensity/Depth Moderate Body Position Prone Comments Tightness and min tenderness at R QL. No spasm but muscle guarding. MWM using hip hike to promote activation and relaxation of QL. Tenderness over Lumbar spinous processes (no mobilization) R hip Body Location R glut med, piriformis, proximal HS Mobilization Type Instrument Assisted,Strumming, Sustained Pressure,Other Intensity/Depth Deep Body Position prone, L SL Comments Manual STM & MWM hip IR/ ER, hamstring curl. Decreased spasm of R proximal hamstring this session, no reports of increased pain. Minimal piriformis pain/tension today. Trial with brief hip ext next time PT-OP-T Assessment and Plan Start: 06/27/23 09:46 Freq: Status: Active Protocol: Document 09/05/23 10:33 NM (Rec: 09/05/23 11:34 NM [id number]) Physical Therapy Assessment Goals lifting Impairment lifting Impairment unable to parts picker 10# from ground Short Term Goal (STG) Pt will be able to parts picker 10# from ground for 10 reps without low back pain MET 08/01/23: able to perform 10x10# fwd lumbar flex without low back pain or sciatic symptoms STG Duration 4 weeks Title Supervisor Goal (LTG) Pt will be able to parts picker 20# from ground for 10 reps without low back pain. NOT MET 08/01/23 NOT MET 08/30/23: 3/10 5 reps, extreme lordosis LTG Duration 8 weeks NOT MET % improvement Impairment % improvement Short Term Goal (STG) Pt will report 15% improvement in symptoms. MET 08/01/23 STG Duration 3 weeks Title Supervisor Goal (LTG) Pt will report 50% improvement in symptoms. NOT MET 08/30/23, reports 20% improvement NOT MET 08/01/23 LTG Duration 6-8 weeks NOT MET Oswestry Impairment Oswestry score Impairment IE:22 / 50 = 44.0 % Usp Goal (LTG) Pt will improve Oswestry score by >8 points to a score <14/ 50. 08/30/23: PROGRESSING, 17/50 LTG Duration 6-8 week PROGRESSING HEP Impairment HEP Short Term Goal (STG) Pt will report performing HEP >3 days/week. MET 08/01/23 STG Duration 3 weeks Usp Goal (LTG) Pt will report performing HEP >3 days/week. MET 08/30/23 LTG Duration 6-8 weeks Assessment Summary Assessment Pt continues to have increased pain in her R glutes and R proximal hamstring compared to previous sessions. Due to pain and discomfort in muscles , began session with manual tmt to promote relaxation. Continued mobilization with movement of hamstrings, piriformis, glutes, and QL. Pt reports improvement in pain symptoms after soft tissue tmt . Trialed kickstand RDL with hip IR to promote hip IR strengthening and improve hip mobility; pt tolerated well without any increased pain and reports good feedback for gentle stretch. Progressed to seated hamstring curls for increased knee flex ROM. Initiated gentle hamstring and calf stretches in addition to standing hip ext with fwd trunk flex to target proximal hamstring; cued to keep stretching gentle and to tolerance to prevent strain on R sciatic nerve. HEP: gentle hamstring and calf stretch, RDL with hip IR. Pt would benefit from skilled PT to address lumbar and core strength, postural education, and body mechanics to improve symptom management, activity tolerance, and QOL. Physical Therapy Plan Frequency and Duration Frequency of Treatment 2x/Week Duration of treatment (weeks) 10 Plan of Care Start Date 06/27/23 Plan of Care End Date 09/25/23 Therapeutic Interventions Therapeutic Interventions Joint Mobilizations,Manual Therapy,Neuromuscular Re- education,Patient/Caregiver Education,Self-Care/Home Management,Soft Tissue Mobilization,Taping, Therapeutic Activities, Therapeutic Exercises Modalities Hot Packs Next Visit Focus/Plan Next Note Type Treatment Note Next Visit Plan Next tx: cont hip strengthening and core stabilization, RDL + IR, step up, manual tmt. Trial squat + ppt, trunk flex/ext POC: Continue core strengthening qing pelvis stability, BLE strengthening, sciatic n glide as tolerated ( seated), decrease radicular symptoms and encourage mobility, manual STMs R ES/ glut/Piriformis
--- NOTE | 2023-09-09 11:48 | PT.OTN ---
Current Diagnoses Other chronic pain (09/09/23) Low back pain, unspecified (09/09/23) Physical Therapy Treatment Note PT-OP-A Visit Information Start: 06/27/23 09:46 Freq: Status: Active Protocol: Document 09/09/23 10:41 NM (Rec: 09/09/23 11:18 NM [id number]) Out-Patient Physical Therapy Visit Information Visit Information Visit Type Treatment Note Visit Note 11/23 for 2023 3 after PN Pt late Visit Start Time 10:35 Visit Stop Time 11:15 Total Visit Minutes 40 Visit Number 17 Evaluation Information Evaluation Date 06/27/23 PT-OP-B Current Condition Start: 06/27/23 09:46 Freq: Status: Active Protocol: Document 06/27/23 12:56 ED (Rec: 06/27/23 13:10 ED [id number]) Current Condition History of Current Condition Onset Date chronic Current Complaints low back pain; R LE radiculopathy History of Current Condition Pt states that she has had on and off again back pain for years. She mentions having significant problems with daily and recreational activities secondary to low back pain and that it makes everything hard. Her pain controls her life and limits what she is able to do. She is no longer working. She mentions having other medical pathologies that don't help her either. She states she has R paresthesia down her R leg into her ankle; it's on the back side of her R LE. She states she can be very high strung and get emotional regarding her pain and other diagnoses. She wants to start taking care of herself and focusing on improving her life . Treatment Goals Patient/Caregiver Goals lose weight and improve confidence PT-OP-C Subjective Start: 06/27/23 09:46 Freq: Status: Active Protocol: Document 09/09/23 10:41 NM (Rec: 09/09/23 11:18 NM [id number]) OP-PT Subjective Patient Comments Patient Comments Pt reports continued 5/10 R glute and piriformis pain, decreased since last visit. She has numbness in her RLE, which kept her up last night. Spine doctor on 09/16. PT-OP-K Range of Motion Start: 06/27/23 09:46 Freq: Status: Active Protocol: Document 06/27/23 12:56 ED (Rec: 06/27/23 13:10 ED [id number]) Lumbar Spine Range of Motion Lumbar Spine Active Percentage Flexion 100 Extension 100 PT-OP-Q Treatments Start: 06/27/23 09:46 Freq: Status: Active Protocol: Document 09/09/23 10:41 NM (Rec: 09/09/23 11:18 NM [id number]) Therapeutic Exercises Sitting Exercises sciatic nerve glide Sitting Exercise Name 1. ankle, 2. with ankle and knee Side right Reps/Minutes 1x10 ea Comments reports good feedback, reports mild decrease in symptoms lumbar flexion Sitting Exercise Name lumbar flexion with eccentric lumbar ext- sit on sb, flex fwd>slow ext Side bilateral Resistance [place] green tb (lvl 3) Equipment Used green sb Reps/Minutes 1x20 Comments cues to move to neutral spine with ext, no lordosis Standing Exercises lumbar lateral flexion Standing Exercise Name QL stretch against wall Side bilateral Resistance back leg crossed behind Equipment Used wall Reps/Minutes 1x8 with brief hold into lateral flexion Comments cues for execution, stand closer to wall; reports stretch, no inc symptoms RDL + hip IR Standing Exercise Name minor RDL motion, more hip IR (airplane) Side bilateral Equipment Used trialed 8# wt, unable so ball Reps/Minutes 2x15 with 2 hold Comments to promote hip IR; pain free but fatiguing, reports gentle stretch Hip ext Standing Exercise Name regressed to quad for better pelvic support Stretch Standing Exercise Name d/c squat Standing Exercise Name with back against large green SB to prevent ext lordosis Side bilateral Equipment Used large green sb against wall Reps/Minutes 2x10 Comments cues to push back into ball with post pelvic tilt, core contraction Other Exercises Quadruped Other Exercise Name hip ext within small range, toe starting from table with small lift Side bilateral Equipment Used briefly touch toe to/from mat Reps/Minutes 1x10 ea side Comments cues for core stab, neutral pelvis and spine; reports good feedback PT-OP-T Assessment and Plan Start: 06/27/23 09:46 Freq: Status: Active Protocol: Document 09/09/23 10:41 NM (Rec: 09/09/23 11:18 NM [id number]) Physical Therapy Assessment Goals lifting Impairment lifting Impairment unable to pickling grader 10# from ground Short Term Goal (STG) Pt will be able to pickling grader 10# from ground for 10 reps without low back pain MET 08/01/23: able to perform 10x10# fwd lumbar flex without low back pain or sciatic symptoms STG Duration 4 weeks Cat Skinner Goal (LTG) Pt will be able to pickling grader 20# from ground for 10 reps without low back pain. NOT MET 08/01/23 NOT MET 08/30/23: 3/10 5 reps, extreme lordosis LTG Duration 8 weeks NOT MET % improvement Impairment % improvement Short Term Goal (STG) Pt will report 15% improvement in symptoms. MET 08/01/23 STG Duration 3 weeks Cat Skinner Goal (LTG) Pt will report 50% improvement in symptoms. NOT MET 08/30/23, reports 20% improvement NOT MET 08/01/23 LTG Duration 6-8 weeks NOT MET Oswestry Impairment Oswestry score Impairment IE:22 / 50 = 44.0 % [facility] Goal (LTG) Pt will improve Oswestry score by >8 points to a score <14/ 50. 08/30/23: PROGRESSING, 17/50 LTG Duration 6-8 week PROGRESSING HEP Impairment HEP Short Term Goal (STG) Pt will report performing HEP >3 days/week. MET 08/01/23 STG Duration 3 weeks [facility] Goal (LTG) Pt will report performing HEP >3 days/week. MET 08/30/23 LTG Duration 6-8 weeks Assessment Summary Assessment Pt presents with improvements in symptoms since last 2 sessions; however, she continues to have sciatic symptoms into her RLE, which limit her ability to participate in ADLs. Trialed wall squats with english ball to encourage glute/quad/lumbar strengthening without excessive anterior pelvic tilt ; pt able to perform with cues for posterior pelvic tilt and reports no increase in sciatic symptoms. Initiated trunk flexion/eccentric trunk extension strengthening using theraband/english ball, which pt tolerated well for gentle strengthening. Requires cues to maintain neutral spine posture and to limit excessive lordosis. Pt has tendency to use glutes to stabilize her lumbar spine and moves into excessive lumbar lordosis with standing, squatting, and during ambulation for further lumbar support which increases her pain symptoms. Continued with kickstand RDL and hip IR mobility to lengthen/ strengthen proximal hamstring, lumbar paraspinals and promote better hip movement; trialed 8# db but pt reports low back pain with weight that is not present without loading. After session, pt reports relief with RLE sciatic symptoms and RLE numbness, along with improvement of chronic lumbar spine pain. PT and pt discussed HEP, will discontinue hamstring and calf stretches due to worsening symptoms. Pt will be seeing a spine doctor to discuss her MRI and future tmt options on 09/16/23. Pt would benefit from skilled PT to address limitations in trunk and core strength, BLE strength and stability, postural and biomechanics re-education in order to improve symptom management and QOL, in addition to improve activity tolerance. Physical Therapy Plan Frequency and Duration Frequency of Treatment 2x/Week Duration of treatment (weeks) 10 Plan of Care Start Date 06/27/23 Plan of Care End Date 09/25/23 Therapeutic Interventions Therapeutic Interventions Joint Mobilizations,Manual Therapy,Neuromuscular Re- education,Patient/Caregiver Education,Self-Care/Home Management,Soft Tissue Mobilization,Taping, Therapeutic Activities, Therapeutic Exercises Modalities Hot Packs Next Visit Focus/Plan Next Note Type Treatment Note Next Visit Plan Next tx: cont hip strengthening and core stabilization, RDL + IR, step up, manual tmt. Cont squat + ppt, trunk flex/ext with band (add more ext), sciatic nerve glide into piriformis POC: Continue core strengthening qing pelvis stability, BLE strengthening, sciatic n glide as tolerated ( seated), decrease radicular symptoms and encourage mobility, manual STMs R ES/ glut/Piriformis
--- NOTE | 2023-09-12 11:16 | PT.OTN ---
Current Diagnoses Other chronic pain (09/12/23) Low back pain, unspecified (09/12/23) Physical Therapy Treatment Note PT-OP-A Visit Information Start: 06/27/23 09:46 Freq: Status: Active Protocol: Document 09/12/23 10:36 NM (Rec: 09/12/23 11:15 NM [id number]) Out-Patient Physical Therapy Visit Information Visit Information Visit Type Treatment Note Visit Note 12/24 for 2023 4 after PN Visit Start Time 10:35 Visit Stop Time 11:15 Total Visit Minutes 40 Visit Number 18 PT-OP-B Current Condition Start: 06/27/23 09:46 Freq: Status: Active Protocol: Document 06/27/23 12:56 ED (Rec: 06/27/23 13:10 ED [id number]) Current Condition History of Current Condition Onset Date chronic Current Complaints low back pain; R LE radiculopathy History of Current Condition Pt states that she has had on and off again back pain for years. She mentions having significant problems with daily and recreational activities secondary to low back pain and that it makes everything hard. Her pain controls her life and limits what she is able to do. She is no longer working. She mentions having other medical pathologies that don't help her either. She states she has R paresthesia down her R leg into her ankle; it's on the back side of her R LE. She states she can be very high strung and get emotional regarding her pain and other diagnoses. She wants to start taking care of herself and focusing on improving her life . Treatment Goals Patient/Caregiver Goals lose weight and improve confidence PT-OP-C Subjective Start: 06/27/23 09:46 Freq: Status: Active Protocol: Document 09/12/23 10:36 NM (Rec: 09/12/23 11:15 NM [id number]) OP-PT Subjective Patient Comments Patient Comments Pt reports 4/10 low back pain. Reports that she has been doing more stretching, which she feels is helpful (2x/day when she wakes and then before bed). She has also been delegating more to others, so she does less. PT-OP-K Range of Motion Start: 06/27/23 09:46 Freq: Status: Active Protocol: Document 06/27/23 12:56 ED (Rec: 06/27/23 13:10 ED [id number]) Lumbar Spine Range of Motion Lumbar Spine Active Percentage Flexion 100 Extension 100 PT-OP-Q Treatments Start: 06/27/23 09:46 Freq: Status: Active Protocol: Document 09/12/23 10:36 NM (Rec: 09/12/23 11:15 NM [id number]) Therapeutic Exercises Prone Exercises willian pose Prone Exercise Name end of session for relaxation Side bilateral Reps/Minutes 1x60 Comments with knees together, feet apart Sitting Exercises lumbar flexion Sitting Exercise Name lumbar flexion with eccentric lumbar ext- sit on sb, flex fwd>slow ext Side bilateral Resistance blue tb lvl 4 Equipment Used orange sb Reps/Minutes 1x20 Comments cues to move to neutral spine with ext, no lordosis Standing Exercises Deadlift Standing Exercise Name lumbar extension- standing on band in flex, then stand and pull up Side bilateral Resistance la posta green tb Reps/Minutes 1x12 Comments reports stretch in HS but no pain or radicular sx; cues for neutral posture Sidesteps Standing Exercise Name trialed: for hip abd strengthening Side bilateral Resistance la posta green lvl 3 tb Reps/Minutes 2x20 ft Comments cues to tension band, no fwd flex to prevent low back strain lumbar lateral flexion Standing Exercise Name QL stretch against wall, mobility Side bilateral Resistance back leg crossed behind Equipment Used wall Reps/Minutes 1x10 with brief hold into lateral flexion Comments cues for execution, stand closer to wall; reports stretch, no inc symptoms RDL + hip IR Standing Exercise Name minor RDL motion, more hip IR (airplane) Side bilateral Equipment Used 2# tball Reps/Minutes 2x15 with 2 hold, return to full trunk ext Comments to promote hip IR; pain free but fatiguing, reports gentle stretch step up Standing Exercise Name 8 step up Side bilateral Equipment Used cue for no excess LS lordosis Reps/Minutes 1x15 ea Comments cues for core stab, no opp hip drop; reports no pain Other Exercises Quadruped Other Exercise Name hip ext within small range, toe starting from table with small lift Side bilateral Equipment Used briefly touch toe to/from mat Reps/Minutes 2x15 ea side Comments cues for core stab, neutral pelvis and spine; reports good feedback PT-OP-T Assessment and Plan Start: 06/27/23 09:46 Freq: Status: Active Protocol: Document 09/12/23 10:36 NM (Rec: 09/12/23 11:15 NM [id number]) Physical Therapy Assessment Goals lifting Impairment lifting Impairment unable to lemon picker 10# from ground Short Term Goal (STG) Pt will be able to lemon picker 10# from ground for 10 reps without low back pain MET 08/01/23: able to perform 10x10# fwd lumbar flex without low back pain or sciatic symptoms STG Duration 4 weeks [employer] Sales Developer Goal (LTG) Pt will be able to lemon picker 20# from ground for 10 reps without low back pain. NOT MET 08/01/23 NOT MET 08/30/23: 3/10 5 reps, extreme lordosis LTG Duration 8 weeks NOT MET % improvement Impairment % improvement Short Term Goal (STG) Pt will report 15% improvement in symptoms. MET 08/01/23 STG Duration 3 weeks [facility] Goal (LTG) Pt will report 50% improvement in symptoms. NOT MET 08/30/23, reports 20% improvement NOT MET 08/01/23 LTG Duration 6-8 weeks NOT MET Oswestry Impairment Oswestry score Impairment IE:22 / 50 = 44.0 % [facility] Goal (LTG) Pt will improve Oswestry score by >8 points to a score <14/ 50. 08/30/23: PROGRESSING, 17/50 LTG Duration 6-8 week PROGRESSING HEP Impairment HEP Short Term Goal (STG) Pt will report performing HEP >3 days/week. MET 08/01/23 STG Duration 3 weeks [facility] Goal (LTG) Pt will report performing HEP >3 days/week. MET 08/30/23 LTG Duration 6-8 weeks Assessment Summary Assessment Pt presents to clinic with less pain than normal, still 4 /10 at end of session. She reports good symptom relief with quadruped straight leg hip ext, likely due to mobilization of proximal hamstring where pt has most pain. Initiated banded side steps for greater glute med strengthening, which is fatiguing; pt requires cues for upright posture to prevent fwd trunk flex as that strains her lumbar spine and causes pain. Trialed 8 step up for greater glute strengthening and for dynamic core control. PT gave verbal cues to pt to prevent opposite hip drop as caryover from sidesteps. No symptom provocation with step up or kickstand RDL. Trialed lumbar ext/deadlift from flex to neutral spine with band, which pt tolerated well. Reports good muscle activation but no pain; requires verbal/tactile cues for stable core, no excess lumbar lordosis. HEP: side steps, deadlift. PT and pt discussed her upcoming appt with the spine doctor; depending on what treatment course is decided, pt and PT discussed possible discharge at next session to maximize PT benefits, which pt agreed. Pt would benefit from skilled PT for BLE/lumbar spine strengthening, postural and core stability re-education for symptom reduction and to improve activity tolerance. Physical Therapy Plan Frequency and Duration Frequency of Treatment 2x/Week Duration of treatment (weeks) 10 Plan of Care Start Date 06/27/23 Plan of Care End Date 09/25/23 Therapeutic Interventions Therapeutic Interventions Joint Mobilizations,Manual Therapy,Neuromuscular Re- education,Patient/Caregiver Education,Self-Care/Home Management,Soft Tissue Mobilization,Taping, Therapeutic Activities, Therapeutic Exercises Modalities Hot Packs Next Visit Focus/Plan Next Note Type Treatment Note Next Visit Plan Check response to deadlift, step up, sidesteps. Squat re- education Next tx: cont hip strengthening and core stabilization, RDL + IR, step up, manual tmt. Cont squat + ppt, trunk flex/ext with band (add more ext), sciatic nerve glide into piriformis POC: Continue core strengthening qing pelvis stability, BLE strengthening, sciatic n glide as tolerated ( seated), decrease radicular symptoms and encourage mobility, manual STMs R ES/ glut/Piriformis
--- NOTE | 2023-09-17 14:54 | PT.OTN ---
Current Diagnoses Other chronic pain (09/17/23) Low back pain, unspecified (09/17/23) Physical Therapy Treatment Note PT-OP-A Visit Information Start: 06/27/23 09:46 Freq: Status: Active Protocol: Document 09/17/23 13:05 NM (Rec: 09/17/23 13:48 NM [id number]) Out-Patient Physical Therapy Visit Information Visit Information Visit Type Progress Note Visit Note 01/23 for 2023 5 after PN Visit Start Time 13:05 Visit Stop Time 13:45 Total Visit Minutes 40 Visit Number 19 Evaluation Information Evaluation Date 06/27/23 PT-OP-B Current Condition Start: 06/27/23 09:46 Freq: Status: Active Protocol: Document 06/27/23 12:56 ED (Rec: 06/27/23 13:10 ED [id number]) Current Condition History of Current Condition Onset Date chronic Current Complaints low back pain; R LE radiculopathy History of Current Condition Pt states that she has had on and off again back pain for years. She mentions having significant problems with daily and recreational activities secondary to low back pain and that it makes everything hard. Her pain controls her life and limits what she is able to do. She is no longer working. She mentions having other medical pathologies that don't help her either. She states she has R paresthesia down her R leg into her ankle; it's on the back side of her R LE. She states she can be very high strung and get emotional regarding her pain and other diagnoses. She wants to start taking care of herself and focusing on improving her life . Treatment Goals Patient/Caregiver Goals lose weight and improve confidence PT-OP-C Subjective Start: 06/27/23 09:46 Freq: Status: Active Protocol: Document 09/17/23 13:05 NM (Rec: 09/17/23 13:48 NM [id number]) OP-PT Subjective Patient Comments Patient Comments Pt presents with 5/10 along with increased numbness in her R leg and foot, episodic. She had her appt with Dr. Sánchez yesterday. Pt reports that she has a bulging disc onto the nerve, with inflammation and swelling causing the numbness and tingling. Dr. Sánchez is planning on doing a steroid injection in her back, but she is unsure whether she will have the injection. She is wanting to extend her plan of care PT-OP-K Range of Motion Start: 06/27/23 09:46 Freq: Status: Active Protocol: Document 06/27/23 12:56 ED (Rec: 06/27/23 13:10 ED [id number]) Lumbar Spine Range of Motion Lumbar Spine Active Percentage Flexion 100 Extension 100 PT-OP-Q Treatments Start: 06/27/23 09:46 Freq: Status: Active Protocol: Document 09/17/23 13:05 NM (Rec: 09/17/23 13:48 NM [id number]) Therapeutic Exercises Standing Exercises Deadlift Standing Exercise Name lumbar extension- standing on band in flex, then stand and pull up Side bilateral Resistance [place] green tb Equipment Used cue to prevent excessive lumbar lordosis Reps/Minutes 2x12 Comments reports stretch in HS but no pain or radicular sx; cues for neutral posture Sidesteps Standing Exercise Name for hip abd strengthening Side bilateral Resistance [place] green lvl 3 tb around ankles Reps/Minutes 3x20 ft Comments cues to tension band, no fwd flex to prevent low back strain lumbar lateral flexion Standing Exercise Name lateral flexion- gentle stretch, light strengthening Side bilateral Resistance 3# Equipment Used mirror for visual cues Reps/Minutes 1x5 ea with brief hold Comments trialed-inc symptoms with R lateral flex, d/c RDL + hip IR Standing Exercise Name cont next time, progress step up Standing Exercise Name next time squat Standing Exercise Name 1. squat, 2. metal pickling equipment operator weight from ground Side bilateral Resistance 2 10# db Reps/Minutes 1x10 ea Comments cues for core stab; reports 4/ 10 pain (decreased) with object p/u Other Exercises Quadruped Other Exercise Name hip ext within small range, toe starting from table with small lift Side bilateral Resistance 2# ankle weight Equipment Used briefly touch toe to/from mat; improved Reps/Minutes 2x15 ea side Comments cues for core stab, neutral pelvis and spine; reports good feedback PT-OP-T Assessment and Plan Start: 06/27/23 09:46 Freq: Status: Active Protocol: Document 09/17/23 13:05 NM (Rec: 09/17/23 13:48 NM [id number]) Physical Therapy Assessment Goals lifting Impairment lifting Impairment unable to metal pickling equipment operator 10# from ground Short Term Goal (STG) Pt will be able to metal pickling equipment operator 10# from ground for 10 reps without low back pain MET 08/01/23: able to perform 10x10# fwd lumbar flex without low back pain or sciatic symptoms STG Duration 4 weeks Penitentiary Goal (LTG) Pt will be able to metal pickling equipment operator 20# from ground for 10 reps with 4/10 pain or less. PARTIALLY MET 09/17/23: able to perform 10 reps, 4/10 pain ( improvement from previous attempts); still demos extreme lordosis NOT MET 08/01/23 NOT MET 08/30/23: 3/10 5 reps, extreme lordosis LTG Duration 8 weeks NOT MET, goal updated % improvement Impairment % improvement Short Term Goal (STG) Pt will report 15% improvement in symptoms. MET 08/01/23 STG Duration 3 weeks Penitentiary Goal (LTG) Pt will report 50% improvement in symptoms. 09/17/23: NOT MET pt reports 40 % NOT MET 08/30/23, reports 20% improvement NOT MET 08/01/23 LTG Duration 6-8 weeks NOT MET Oswestry Impairment Oswestry score Impairment IE:22 / 50 = 44.0 % Avionics Mechanic Goal (LTG) Pt will improve Oswestry score by >8 points to a score <14/ 50. 08/30/23: PROGRESSING, 17/50 LTG Duration 6-8 week PROGRESSING HEP Impairment HEP Short Term Goal (STG) Pt will report performing HEP >3 days/week. MET 08/01/23 STG Duration 3 weeks Penitentiary Goal (LTG) Pt will report performing HEP >3 days/week. MET 08/30/23 LTG Duration 6-8 weeks Progress Towards Goals Progress Towards Goals Progressing Toward Goals,Slow Progress due to Medical Issues Assessment Summary Assessment Continued with BLE and trunk extensor strengthening. Progressed repetitions and resistance of side steps, quadruped hip extension, which pt tolerated well. Still limited in ability to perform side steps or RDL with sustained trunk flex due to pain. However, demos improved activity tolerance with BLE strengthening exercises. Pt able to perform 20# squat, which pt tolerated well with reports of only 4/10 pain, an improvement since previous attempts. Trialed picking up 20# from floor using squat technique with cueing for core stabilization and to prevent excessive lumbar lordosis; able to perform with mild pain (4/10), but overall improvement compared to last PN. Pt would benefit from further squat retraining in order to maximize functional capabilities at home. At end of session, pt reports a decrease in overall pain levels to 4/10 and no numbness /tingling in her RLE. Pt had her appt with Dr. Sánchez yesterday; she is unsure whether she will get an injection for her pain. PT encouraged pt to follow up with Dr. Sánchez's office for more information. PT and pt discussed current progress with PT and plan to extend POC for continued BLE/trunk strengthening and postural/ activity re-education. Pt has been seen since June 2023 for low back pain and RLE sciatic symptoms. She is slowly progressing toward goals, demonstrating improvement in her ability to tolerate progressive loading and BLE/trunk strength. Updated the squatting/lifting goal to reflect pt's current ability to manage pain. Pt is able to perform ADLs/IADLs but reports increased pain with lifting, bending, and sleeping , which is limiting. However, pt reports improvement in symptom management and activity tolerance/strength since beginning PT. Pt would benefit from skilled PT for postural re-education and activity modification in addition to trunk and core strengthening in order to improve symptom management and activity tolerance. Physical Therapy Plan Frequency and Duration Frequency of Treatment 2x/Week Duration of treatment (weeks) 6 Plan of Care Start Date 09/17/23 Plan of Care End Date 11/01/23 Therapeutic Interventions Therapeutic Interventions Joint Mobilizations,Manual Therapy,Neuromuscular Re- education,Patient/Caregiver Education,Self-Care/Home Management,Soft Tissue Mobilization,Taping, Therapeutic Activities, Therapeutic Exercises Modalities Hot Packs Next Visit Focus/Plan Next Note Type Treatment Note Next Visit Plan Check response to deadlift, step up, sidesteps. Squat re- education training (dec lordosis) Next tx: cont hip strengthening and core stabilization, RDL + IR, step up, manual tmt. Cont squat + ppt, trunk flex/ext with band (add more ext), sciatic nerve glide into piriformis prn POC: Continue core strengthening qing pelvis stability, BLE strengthening, sciatic n glide as tolerated ( seated), decrease radicular symptoms and encourage mobility, manual STMs R ES/ glut/Piriformis
--- NOTE | 2023-09-17 14:54 | PT.OTN ---
Current Diagnoses Other chronic pain (09/17/23) Low back pain, unspecified (09/17/23) Physical Therapy Treatment Note PT-OP-A Visit Information Start: 06/27/23 09:46 Freq: Status: Active Protocol: Document 09/17/23 13:05 NM (Rec: 09/17/23 13:48 NM [id number]) Out-Patient Physical Therapy Visit Information Visit Information Visit Type Treatment Note Visit Note 01/23 for 2023 5 after PN Visit Start Time 13:05 Visit Stop Time 13:45 Total Visit Minutes 40 Visit Number 19 Evaluation Information Evaluation Date 06/27/23 PT-OP-B Current Condition Start: 06/27/23 09:46 Freq: Status: Active Protocol: Document 06/27/23 12:56 ED (Rec: 06/27/23 13:10 ED [id number]) Current Condition History of Current Condition Onset Date chronic Current Complaints low back pain; R LE radiculopathy History of Current Condition Pt states that she has had on and off again back pain for years. She mentions having significant problems with daily and recreational activities secondary to low back pain and that it makes everything hard. Her pain controls her life and limits what she is able to do. She is no longer working. She mentions having other medical pathologies that don't help her either. She states she has R paresthesia down her R leg into her ankle; it's on the back side of her R LE. She states she can be very high strung and get emotional regarding her pain and other diagnoses. She wants to start taking care of herself and focusing on improving her life . Treatment Goals Patient/Caregiver Goals lose weight and improve confidence PT-OP-C Subjective Start: 06/27/23 09:46 Freq: Status: Active Protocol: Document 09/17/23 13:05 NM (Rec: 09/17/23 13:48 NM [id number]) OP-PT Subjective Patient Comments Patient Comments Pt presents with 5/10 along with increased numbness in her R leg and foot, episodic. She had her appt with Dr. Sánchez yesterday. Pt reports that she has a bulging disc onto the nerve, with inflammation and swelling causing the numbness and tingling. Dr. Sánchez is planning on doing a steroid injection in her back, but she is unsure whether she will have the injection. PT-OP-K Range of Motion Start: 06/27/23 09:46 Freq: Status: Active Protocol: Document 06/27/23 12:56 ED (Rec: 06/27/23 13:10 ED [id number]) Lumbar Spine Range of Motion Lumbar Spine Active Percentage Flexion 100 Extension 100 PT-OP-Q Treatments Start: 06/27/23 09:46 Freq: Status: Active Protocol: Document 09/17/23 13:05 NM (Rec: 09/17/23 13:48 NM [id number]) Therapeutic Exercises Standing Exercises Deadlift Standing Exercise Name lumbar extension- standing on band in flex, then stand and pull up Side bilateral Resistance [place] green tb Equipment Used cue to prevent excessive lumbar lordosis Reps/Minutes 2x12 Comments reports stretch in HS but no pain or radicular sx; cues for neutral posture Sidesteps Standing Exercise Name for hip abd strengthening Side bilateral Resistance [place] green lvl 3 tb around ankles Reps/Minutes 3x20 ft Comments cues to tension band, no fwd flex to prevent low back strain lumbar lateral flexion Standing Exercise Name lateral flexion- gentle stretch, light strengthening Side bilateral Resistance 3# Equipment Used mirror for visual cues Reps/Minutes 1x5 ea with brief hold Comments trialed-inc symptoms with R lateral flex, d/c RDL + hip IR Standing Exercise Name cont next time, progress step up Standing Exercise Name next time squat Standing Exercise Name 1. squat, 2. brass pickler weight from ground Side bilateral Resistance 2 10# db Reps/Minutes 1x10 ea Comments cues for core stab; reports 4/ 10 pain (decreased) with object p/u Other Exercises Quadruped Other Exercise Name hip ext within small range, toe starting from table with small lift Side bilateral Resistance 2# ankle weight Equipment Used briefly touch toe to/from mat; improved Reps/Minutes 2x15 ea side Comments cues for core stab, neutral pelvis and spine; reports good feedback PT-OP-T Assessment and Plan Start: 06/27/23 09:46 Freq: Status: Active Protocol: Document 09/17/23 13:05 NM (Rec: 09/17/23 13:48 NM [id number]) Physical Therapy Assessment Goals lifting Impairment lifting Impairment unable to brass pickler 10# from ground Short Term Goal (STG) Pt will be able to brass pickler 10# from ground for 10 reps without low back pain MET 08/01/23: able to perform 10x10# fwd lumbar flex without low back pain or sciatic symptoms STG Duration 4 weeks Leg Assembler Goal (LTG) Pt will be able to brass pickler 20# from ground for 10 reps without low back pain. PARTIALLY MET 09/17/23: 4/10 pain NOT MET 08/01/23 NOT MET 08/30/23: 3/10 5 reps, extreme lordosis LTG Duration 8 weeks NOT MET % improvement Impairment % improvement Short Term Goal (STG) Pt will report 15% improvement in symptoms. MET 08/01/23 STG Duration 3 weeks Leg Assembler Goal (LTG) Pt will report 50% improvement in symptoms. 09/17/23: NOT MET pt reports 40 % NOT MET 08/30/23, reports 20% improvement NOT MET 08/01/23 LTG Duration 6-8 weeks NOT MET Oswestry Impairment Oswestry score Impairment IE:22 / 50 = 44.0 % Leg Assembler Goal (LTG) Pt will improve Oswestry score by >8 points to a score <14/ 50. 08/30/23: PROGRESSING, 17/50 LTG Duration 6-8 week PROGRESSING HEP Impairment HEP Short Term Goal (STG) Pt will report performing HEP >3 days/week. MET 08/01/23 STG Duration 3 weeks Leg Assembler Goal (LTG) Pt will report performing HEP >3 days/week. MET 08/30/23 LTG Duration 6-8 weeks Assessment Summary Assessment Continued with BLE and trunk extensor strengthening. Progressed repetitions and resistance of side steps, quadruped hip extension, which pt tolerated well. Still limited in ability to perform side steps or RDL with sustained trunk flex. However, demos improved activity tolerance. Pt able to perform 20# squat, which pt tolerated well with reports of only 4/10 pain, an improvement. Trialed picking up 20# from floor using squat technique with cueing for core stabilization and to prevent excessive lumbar lordosis; able to perform with mild pain (4/10), but overall improvement compared to last PN. At end of session, pt reports a decrease in overall pain levels to 4/10 and no numbness /tingling. Pt had her appt with Dr. Sánchez yesterday; she is unsure whether she will get an injection for her pain. PT and pt discussed current progress with PT and whether to continue as her POC is ending at next session. Pt would benefit from skilled PT for postural re-education and activity modification in addition to trunk and core strengthening in order to improve symptom management and activity tolerance. Physical Therapy Plan Frequency and Duration Frequency of Treatment 2x/Week Duration of treatment (weeks) 10 Plan of Care Start Date 06/27/23 Plan of Care End Date 09/25/23 Therapeutic Interventions Therapeutic Interventions Joint Mobilizations,Manual Therapy,Neuromuscular Re- education,Patient/Caregiver Education,Self-Care/Home Management,Soft Tissue Mobilization,Taping, Therapeutic Activities, Therapeutic Exercises Modalities Hot Packs Next Visit Focus/Plan Next Note Type Progress Note Next Visit Plan Check response to deadlift, step up, sidesteps. Squat re- education Next tx: cont hip strengthening and core stabilization, RDL + IR, step up, manual tmt. Cont squat + ppt, trunk flex/ext with band (add more ext), sciatic nerve glide into piriformis POC: Continue core strengthening qing pelvis stability, BLE strengthening, sciatic n glide as tolerated ( seated), decrease radicular symptoms and encourage mobility, manual STMs R ES/ glut/Piriformis Determine if ext POC or d/c
--- NOTE | 2023-09-17 14:56 | PT.OPPOC ---
Physical, Occupational & Speech Therapy At [facility] Current Diagnoses Other chronic pain (09/17/23) Low back pain, unspecified (09/17/23) Visit Care Team Role Provider Type Manoj Newman DO Family Provider Physician Specialty: Family Practice Address: [address] [place] [address] Email: [email or web address] Venita Anderson MD Attending Provider Physician Primary Care Provider Referring Provider Specialty: Family Practice Obstetrics Address: [address] [place] [address], [id number] Email: [email or web address] Plan Of Care PT-OP-T Assessment and Plan Start: 06/27/23 09:46 Freq: Status: Active Protocol: Document 09/17/23 13:05 NM (Rec: 09/17/23 13:48 NM [id number]) Physical Therapy Assessment Goals lifting Impairment lifting Impairment unable to pickler helper 10# from ground Short Term Goal (STG) Pt will be able to pickler helper 10# from ground for 10 reps without low back pain MET 08/01/23: able to perform 10x10# fwd lumbar flex without low back pain or sciatic symptoms STG Duration 4 weeks Computer Security Manager Goal (LTG) Pt will be able to pickler helper 20# from ground for 10 reps with 4/10 pain or less. PARTIALLY MET 09/17/23: able to perform 10 reps, 4/10 pain ( improvement from previous attempts); still demos extreme lordosis NOT MET 08/01/23 NOT MET 08/30/23: 3/10 5 reps, extreme lordosis LTG Duration 8 weeks NOT MET, goal updated % improvement Impairment % improvement Short Term Goal (STG) Pt will report 15% improvement in symptoms. MET 08/01/23 STG Duration 3 weeks Fpc Goal (LTG) Pt will report 50% improvement in symptoms. 09/17/23: NOT MET pt reports 40 % NOT MET 08/30/23, reports 20% improvement NOT MET 08/01/23 LTG Duration 6-8 weeks NOT MET Oswestry Impairment Oswestry score Impairment IE:22 / 50 = 44.0 % Computer Security Manager Goal (LTG) Pt will improve Oswestry score by >8 points to a score <14/ 50. 08/30/23: PROGRESSING, 17/50 LTG Duration 6-8 week PROGRESSING HEP Impairment HEP Short Term Goal (STG) Pt will report performing HEP >3 days/week. MET 08/01/23 STG Duration 3 weeks Computer Security Manager Goal (LTG) Pt will report performing HEP >3 days/week. MET 08/30/23 LTG Duration 6-8 weeks Progress Towards Goals Progress Towards Goals Progressing Toward Goals,Slow Progress due to Medical Issues Assessment Summary Assessment Continued with BLE and trunk extensor strengthening. Progressed repetitions and resistance of side steps, quadruped hip extension, which pt tolerated well. Still limited in ability to perform side steps or RDL with sustained trunk flex due to pain. However, demos improved activity tolerance with BLE strengthening exercises. Pt able to perform 20# squat, which pt tolerated well with reports of only 4/10 pain, an improvement since previous attempts. Trialed picking up 20# from floor using squat technique with cueing for core stabilization and to prevent excessive lumbar lordosis; able to perform with mild pain (4/10), but overall improvement compared to last PN. Pt would benefit from further squat retraining in order to maximize functional capabilities at home. At end of session, pt reports a decrease in overall pain levels to 4/10 and no numbness /tingling in her RLE. Pt had her appt with Dr. Sánchez yesterday; she is unsure whether she will get an injection for her pain. PT encouraged pt to follow up with Dr. Sánchez's office for more information. PT and pt discussed current progress with PT and plan to extend POC for continued BLE/trunk strengthening and postural/ activity re-education. Pt has been seen since June 2023 for low back pain and RLE sciatic symptoms. She is slowly progressing toward goals, demonstrating improvement in her ability to tolerate progressive loading and BLE/trunk strength. Updated the squatting/lifting goal to reflect pt's current ability to manage pain. Pt is able to perform ADLs/IADLs but reports increased pain with lifting, bending, and sleeping , which is limiting. However, pt reports improvement in symptom management and activity tolerance/strength since beginning PT. Pt would benefit from skilled PT for postural re-education and activity modification in addition to trunk and core strengthening in order to improve symptom management and activity tolerance. Physical Therapy Plan Frequency and Duration Frequency of Treatment 2x/Week Duration of treatment (weeks) 6 Plan of Care Start Date 09/17/23 Plan of Care End Date 11/01/23 Therapeutic Interventions Therapeutic Interventions Joint Mobilizations,Manual Therapy,Neuromuscular Re- education,Patient/Caregiver Education,Self-Care/Home Management,Soft Tissue Mobilization,Taping, Therapeutic Activities, Therapeutic Exercises Modalities Hot Packs Next Visit Focus/Plan Next Note Type Treatment Note Next Visit Plan Check response to deadlift, step up, sidesteps. Squat re- education training (dec lordosis) Next tx: cont hip strengthening and core stabilization, RDL + IR, step up, manual tmt. Cont squat + ppt, trunk flex/ext with band (add more ext), sciatic nerve glide into piriformis prn POC: Continue core strengthening qing pelvis stability, BLE strengthening, sciatic n glide as tolerated ( seated), decrease radicular symptoms and encourage mobility, manual STMs R ES/ glut/Piriformis Plan of Care Dates Plan of Care Start Date 09/17/23 Plan of Care End Date 11/01/23 Electronically Signed by: Chelsey Roman, PT 09/20/23 [id number] If you are in agreement with this Plan of Care, please return a signed and dated copy. I have reviewed this Plan of Care and certify that the skilled therapy services above are required to meet the patient?s needs. Physician Signature Date Printed Name and Credentials Clinical Instructor Signature Printed Name and Credentials
--- NOTE | 2023-09-24 14:30 | PT.OTN ---
Current Diagnoses Other chronic pain (09/24/23) Low back pain, unspecified (09/24/23) Physical Therapy Treatment Note PT-OP-A Visit Information Start: 06/27/23 09:46 Freq: Status: Active Protocol: Document 09/24/23 13:56 SP (Rec: 09/24/23 14:35 SP [id number]) Out-Patient Physical Therapy Visit Information Visit Information Visit Type Progress Note Visit Note 02/23 for 2023 2nd appt after PN Visit Start Time 13:50 Visit Stop Time 14:30 Total Visit Minutes 40 Visit Number 20 Number of ROPE MAKER Visits 1 Evaluation Information Evaluation Date 06/27/23 PT-OP-B Current Condition Start: 06/27/23 09:46 Freq: Status: Active Protocol: Document 06/27/23 12:56 ED (Rec: 06/27/23 13:10 ED [id number]) Current Condition History of Current Condition Onset Date chronic Current Complaints low back pain; R LE radiculopathy History of Current Condition Pt states that she has had on and off again back pain for years. She mentions having significant problems with daily and recreational activities secondary to low back pain and that it makes everything hard. Her pain controls her life and limits what she is able to do. She is no longer working. She mentions having other medical pathologies that don't help her either. She states she has R paresthesia down her R leg into her ankle; it's on the back side of her R LE. She states she can be very high strung and get emotional regarding her pain and other diagnoses. She wants to start taking care of herself and focusing on improving her life . Treatment Goals Patient/Caregiver Goals lose weight and improve confidence PT-OP-C Subjective Start: 06/27/23 09:46 Freq: Status: Active Protocol: Document 09/24/23 13:56 SP (Rec: 09/24/23 14:35 SP [id number]) OP-PT Subjective Patient Comments Patient Comments Pt reports back felt tired but better after exercise last tx . She saw Dr Almeida review MRI, bulging lumbar spine on R thinking radiculopathy into RLE, also swelling on L. Referred for steroid injections in [place] end Oct. She didn't feel had enough time get info on this procedure, so wants to see Dr get more info before schedules. ALso saw general physician and stated can get a referral to spinal surgeon for 2nd opinion with agreement while waiting to see back orthopedic. Pt stated wants to attend 1 more PT appt for review on HEP and progression. She wants to keep more appts allow for the year , so if need later have some. Will cancel next 2 ROPE MAKER visits and keep next PT 10/14, will cancel rest appts after next visit if DC to HEP. PT-OP-K Range of Motion Start: 06/27/23 09:46 Freq: Status: Active Protocol: Document 06/27/23 12:56 ED (Rec: 06/27/23 13:10 ED [id number]) Lumbar Spine Range of Motion Lumbar Spine Active Percentage Flexion 100 Extension 100 PT-OP-Q Treatments Start: 06/27/23 09:46 Freq: Status: Active Protocol: Document 09/24/23 13:56 SP (Rec: 09/24/23 14:35 SP [id number]) Therapeutic Exercises Supine Exercises neural glide Supine Exercise Name with short term hip ext stretch (Df/PF 1st, then knee ext/flex) Side bilateral Equipment Used towel behind thigh Reps/Minutes x10 ea Comments good feedback active HS stretch Sitting Exercises Hip IR Sitting Exercise Name HEP reviewed Side bilateral Resistance light blue tb around ankles Equipment Used with small teal ball btwn knees for hip ADD Reps/Minutes 2x10 ea Comments cued for greater hip IR- reports always helps mus tire/ decr leg tingling Standing Exercises Deadlift Standing Exercise Name lumbar extension- standing on band in flex, then stand and pull up Side bilateral Resistance 2- 10# wt Equipment Used cue to prevent excessive lumbar lordosis Reps/Minutes 5 reps Comments painfree range, slight knee flexion return to stand, Manual Therapy Treatment Soft Tissue Mobilization Lumbar spine Body Location R>L L5/S1 caudal pressure Mobilization Type Myofascial Release,Sustained Pressure,Other Intensity/Depth Moderate Body Position Prone over pillows R hip Body Location R glut med, piriformis Mobilization Type Instrument Assisted,Strumming, Sustained Pressure,Other Intensity/Depth Deep Body Position prone, L SL Comments Manual STM & MWM hip IR/ ER Manual Traction LS manual traction Body Position Hooklying Comments 1. LEs over 44cm tball manual traction 2. long axis traction each LE, opp LE bent/ft table * Discussed boyfriend provide manual traction, long axis for benefits and her decompression painfree response. PT-OP-T Assessment and Plan Start: 06/27/23 09:46 Freq: Status: Active Protocol: Document 09/24/23 13:56 SP (Rec: 09/24/23 14:35 SP [id number]) Physical Therapy Assessment Goals lifting Impairment lifting Impairment unable to olive picker 10# from ground Short Term Goal (STG) Pt will be able to olive picker 10# from ground for 10 reps without low back pain MET 08/01/23: able to perform 10x10# fwd lumbar flex without low back pain or sciatic symptoms STG Duration 4 weeks Nursing Home Goal (LTG) Pt will be able to olive picker 20# from ground for 10 reps with 4/10 pain or less. PARTIALLY MET 09/17/23: able to perform 10 reps, 4/10 pain ( improvement from previous attempts); still demos extreme lordosis NOT MET 08/01/23 NOT MET 08/30/23: 3/10 5 reps, extreme lordosis LTG Duration 8 weeks NOT MET, goal updated % improvement Impairment % improvement Short Term Goal (STG) Pt will report 15% improvement in symptoms. MET 08/01/23 STG Duration 3 weeks Floor Representative Goal (LTG) Pt will report 50% improvement in symptoms. 09/17/23: NOT MET pt reports 40 % NOT MET 08/30/23, reports 20% improvement NOT MET 08/01/23 LTG Duration 6-8 weeks NOT MET Oswestry Impairment Oswestry score Impairment IE:22 / 50 = 44.0 % Nursing Home Goal (LTG) Pt will improve Oswestry score by >8 points to a score <14/ 50. 08/30/23: PROGRESSING, 17/50 LTG Duration 6-8 week PROGRESSING HEP Impairment HEP Short Term Goal (STG) Pt will report performing HEP >3 days/week. MET 08/01/23 STG Duration 3 weeks Floor Representative Goal (LTG) Pt will report performing HEP >3 days/week. MET 08/30/23 LTG Duration 6-8 weeks Assessment Summary Assessment Pt reduction in back pain from 8>6/10 by end of tx. Good feedback response of decrease to pain freel during manual, especially long axis traction, discussed self STM ball on wall if find benefits. Painfree neural glide and resisted hip IR and eccentric flexion/back stretch with cues as needed for proper back alignment cues for support strengthening and functional mobility. Physical Therapy Plan Frequency and Duration Frequency of Treatment 2x/Week Duration of treatment (weeks) 6 Plan of Care Start Date 09/17/23 Plan of Care End Date 11/01/23 Therapeutic Interventions Therapeutic Interventions Joint Mobilizations,Manual Therapy,Neuromuscular Re- education,Patient/Caregiver Education,Self-Care/Home Management,Soft Tissue Mobilization,Taping, Therapeutic Activities, Therapeutic Exercises Modalities Hot Packs Next Visit Focus/Plan Next Note Type Discharge Summary Next Visit Plan Check HEP, DC to HEP: see subjective. Check response to deadlift, step up, sidesteps performed last tx. Squat re-education training (dec lordosis).Wants to review HEP best to focus on for HEP. Next tx: cont hip strengthening and core stabilization, RDL + IR, step up, manual tmt. Cont squat + ppt, trunk flex/ext with band (add more ext), sciatic nerve glide into piriformis prn POC: Continue core strengthening qing pelvis stability, BLE strengthening, sciatic n glide as tolerated ( seated), decrease radicular symptoms and encourage mobility, manual STMs R ES/ glut/Piriformis
--- NOTE | 2023-10-14 14:39 | PT.OTN ---
Current Diagnoses Other chronic pain (10/14/23) Low back pain, unspecified (10/14/23) Physical Therapy Treatment Note PT-OP-A Visit Information Start: 06/27/23 09:46 Freq: Status: Active Protocol: Document 10/14/23 13:02 NM (Rec: 10/14/23 13:44 NM [id number]) Out-Patient Physical Therapy Visit Information Visit Information Visit Type Discharge Summary Visit Note 03/25 Visit Start Time 13:00 Visit Stop Time 13:45 Visit Number 21 Evaluation Information Evaluation Date 06/27/23 PT-OP-B Current Condition Start: 06/27/23 09:46 Freq: Status: Active Protocol: Document 06/27/23 12:56 ED (Rec: 06/27/23 13:10 ED [id number]) Current Condition History of Current Condition Onset Date chronic Current Complaints low back pain; R LE radiculopathy History of Current Condition Pt states that she has had on and off again back pain for years. She mentions having significant problems with daily and recreational activities secondary to low back pain and that it makes everything hard. Her pain controls her life and limits what she is able to do. She is no longer working. She mentions having other medical pathologies that don't help her either. She states she has R paresthesia down her R leg into her ankle; it's on the back side of her R LE. She states she can be very high strung and get emotional regarding her pain and other diagnoses. She wants to start taking care of herself and focusing on improving her life . Treatment Goals Patient/Caregiver Goals lose weight and improve confidence PT-OP-C Subjective Start: 06/27/23 09:46 Freq: Status: Active Protocol: Document 10/14/23 13:02 NM (Rec: 10/14/23 13:44 NM [id number]) OP-PT Subjective Patient Comments Patient Comments Pt reports that she saw Dr. Diaz for a 2nd opinion ( surgeon) about an injection and to review MRIs. She sees Dr. Sánchez on 10/22. She is planning to try injections first, then surgery if not. She is now on gabapentin for pain for the past week. Overall, she reports that she is doing better regarding her low back pain, but it is still present. LLE has more tingling today compared to RLE . PT-OP-K Range of Motion Start: 06/27/23 09:46 Freq: Status: Active Protocol: Document 06/27/23 12:56 ED (Rec: 06/27/23 13:10 ED [id number]) Lumbar Spine Range of Motion Lumbar Spine Active Percentage Flexion 100 Extension 100 PT-OP-Q Treatments Start: 06/27/23 09:46 Freq: Status: Active Protocol: Document 10/14/23 13:02 NM (Rec: 10/14/23 13:44 NM [id number]) Therapeutic Exercises Supine Exercises knee to chest stretch Supine Exercise Name single knee to chest Side bilateral Equipment Used with towel Reps/Minutes 2x30 Comments reports no pain with stretch, feels good Hip IR stretch Supine Exercise Name HEP Side bilateral Reps/Minutes 2x30 ea Comments pain free, cues for gentle stretch Hip ER stretch Supine Exercise Name figure 4 with knee flexed Side bilateral Equipment Used towel to assist with knee flex Reps/Minutes 1x30 ea Comments cues for gentle stretch Lower Abdominal stab Supine Exercise Name mini marching with brief lift 1. bilaterally, 2. unilaterally Side bilateral Resistance AROM Equipment Used cued for ppt, core stabilization Reps/Minutes 1. 1x10 ea with brief hold, 2. 1x5 ea with brief hold Comments cued for core stab; improved with repetitions Sitting Exercises LAQ Side bilateral Resistance AROM for review Reps/Minutes 1x10 with 5 hold Comments cued for form, reports minimizes pain in low back HSC Side bilateral Resistance AROM for HEP review Reps/Minutes 1x10 Comments reports no pain, but can feel muscles working sciatic nerve glide Sitting Exercise Name 1. ankle, 2. with ankle and knee Side right Reps/Minutes 1x10 ea lat pull down Sitting Exercise Name lat pull down Side bilateral Resistance lvl 2 tb Reps/Minutes 2x15 Comments cued for form, core contraction/stabilization; reports no pain Standing Exercises Split squat Standing Exercise Name 1. split squat AROM, 2. to/ from floor Side bilateral Resistance AROM Equipment Used 1. AROM, 2. 10# db supervisor opening and picking from floor Reps/Minutes 1. 1x10, 2. 1x10 ea side Comments reports no pain at back, min knee; instructed to use pillow at knee Deadlift Standing Exercise Name lumbar extension (supervisor opening and picking from floor) Side bilateral Resistance 2- 10# wt Equipment Used cue to prevent excessive lumbar lordosis Reps/Minutes 5 reps Comments painfree range, slight knee flexion return to stand, Sidesteps Standing Exercise Name review for HEP but did not perform in session RDL + hip IR Standing Exercise Name reviewed for HEP but did not perform in session Other Exercises Quadruped Other Exercise Name 1. TA stab/breathing, 2.hip ext within small range Side bilateral Equipment Used briefly touch toe to/from mat; improved Reps/Minutes 1. 1x10 ea side Comments cues for core stab, neutral pelvis and spine; reports good feedback Manual Therapy Treatment Soft Tissue Mobilization Lumbar spine Body Location L paraspinals Mobilization Type Oscillations,Rolling,Sustained Pressure Intensity/Depth Moderate Body Position Prone over pillows Comments L paraspinals sustained pressure, rolling, oscillations for pain relief. Tenderness near rib 11-12, but decreased with oscillations. Reports good pain relief. Educated on soft tissue mobilization and heat for pain relief. Manual Traction LS manual traction Body Position Sidelying Comments L sidelying for 30 with pillow under side; instructed as part of HEP for pain relief , facet opening; PT instructed pt to perform with most symptomatic side up, relax for side bend to facilatate relief. Pt reports relief with short period of time Self-Care/Home Management Treatment Education Patient Education Body Mechanics,Home Exercise Program,Joint Protection,Pain Management,Safety Other Education 10 minutes: PT educated pt on final HEP and maintenance program 3x/wk. Instructed pt that she can continue with past HEPs, but to not over do it and alternate which exercises she performs. Instructed to not push into pain, discontinue if symptoms return or worsen. Pt verbalizes understanding. PT and pt reviewed best method to supervisor opening and picking object from floor (e. g. laundry) using split squat method; have chair nearby for UE support as needed. PT-OP-T Assessment and Plan Start: 06/27/23 09:46 Freq: Status: Active Protocol: Document 10/14/23 13:02 NM (Rec: 10/14/23 13:44 NM [id number]) Physical Therapy Assessment Goals lifting Impairment lifting Impairment unable to supervisor opening and picking 10# from ground Short Term Goal (STG) Pt will be able to supervisor opening and picking 10# from ground for 10 reps without low back pain MET 08/01/23: able to perform 10x10# fwd lumbar flex without low back pain or sciatic symptoms STG Duration 4 weeks Half-Way Goal (LTG) Pt will be able to supervisor opening and picking 20# from ground for 10 reps with 4/10 pain or less; able to supervisor opening and picking 10# without pain using split squat method. MET 10/14/23: Pt able to perform 10 reps with 20# with 4/10 low back pain PARTIALLY MET 09/17/23: able to perform 10 reps, 4/10 pain ( improvement from previous attempts); still demos extreme lordosis NOT MET 08/01/23 NOT MET 08/30/23: 3/10 5 reps, extreme lordosis LTG Duration 8 weeks MET % improvement Impairment % improvement Short Term Goal (STG) Pt will report 15% improvement in symptoms. MET 08/01/23 STG Duration 3 weeks Bmet Goal (LTG) Pt will report 50% improvement in symptoms. 10/14/23: MET- pt verbally reports 50% improvement in symptoms 09/17/23: NOT MET pt reports 40 % NOT MET 08/30/23, reports 20% improvement NOT MET 08/01/23 LTG Duration 6-8 weeks MET Oswestry Impairment Oswestry score Impairment IE:22 / 50 = 44.0 % Half-Way Goal (LTG) Pt will improve Oswestry score by >8 points to a score <14/ 50. NOT MET 10/14/23: 21/50 08/30/23: PROGRESSING, 17/50 LTG Duration 6-8 week NOT MET HEP Impairment HEP Short Term Goal (STG) Pt will report performing HEP >3 days/week. MET 08/01/23 STG Duration 3 weeks Bmet Goal (LTG) Pt will report performing HEP >3 days/week. MET 08/30/23 LTG Duration 6-8 weeks Progress Towards Goals Progress Towards Goals Progressing Toward Goals,Slow Progress due to Activity Tolerance,Slow Progress due to Medical Issues,Goals Met Progress Comments Met lifting, HEP, and symptom management goals. Pt continues to be limited in activity tolerance, did not meet Oswestry goal. Assessment Summary Assessment Session spent finalizing HEP, reviewing past HEP and goals, in addition to ensuring pt feels comfortable with performing household tasks with good body mechanics. Initiated split squat with limited AROM in addition to 1/ 2 kneel to floor to supervisor opening and picking objects. Pt able to supervisor opening and picking 10 # db from floor with good mechanics and without low back pain or increased sciatic symptoms. Initiated daily ambulation program as part of HEP to encourage pt to remain active; instructed to perform as frequently as able for up to 30 min/day, being mindful of any low back pain. Continued with core stabilization and strengthening to decrease pt dependency to stabilize with glutes. Reviewed glute and hip /quad strengthening for further stabilization of lumbar spine. Manual treatment to address L paraspinal soft tissue tightness; pt reports relief with soft tissue mobilization, instructed in continuing at home with heat for pain relief. Pt verbalizes understanding. Pt has been seen since June 2023 for low back pain and sciatic symptoms. Since IE, pt has improved overall in her ability to manage pain symptoms and activity tolerance. She is compliant with her HEPs. Pt has progressed toward all goals, except overall activity tolerance. She reports 50% improvement in symptoms since beginning PT, but this is dependent on the day. Pt also demos improved tolerance for lifting weighted objects from the floor with 4/10 low back pain or less; her form is best with a half kneel as opposed to squat form. Pt will be following up with her spine doctor and surgeons for an injection and possible surgery for her low back pain in upcoming weeks. She is requesting to discharge due to limited insurance benefits for the remainder of the year; PT and pt in agreement. PT instructed pt in final HEP. Also educated pt to follow up with PCP if symptoms change or worsen or for new referral, pt verbalizes agreement. Pt is safe for discharge to independent exercise. Physical Therapy Plan Frequency and Duration Frequency of Treatment 2x/Week Duration of treatment (weeks) 6 Plan of Care Start Date 09/17/23 Plan of Care End Date 11/01/23 Discharge Physical Therapy Discharge Reasons Patient Request Discharge Comments Pt is wanting to keep remaining PT visits/insurance benefits for future use as she is planning to have an injection and/or possible low back surgery in future. PT and pt in agreement as pt as attempted PT for several months with progress and improvement in symptoms without total resolution. Next Visit Focus/Plan Next Visit Plan Discharge from PT services
== END 2023-10-15 14:56 | disposition home or self-care (01) ==
LOC: PHYS 13:00
PROVIDERS: Family Provider Family Medicine; PCP Student in an Organized Health Care Education/Training Program; Referring Provider Student in an Organized Health Care Education/Training Program; Visit Provider Student in an Organized Health Care Education/Training Program
DX: M54.50 Low back pain, unspecified (principal); G89.29 Other chronic pain
CPT/HCPCS: 97110; 97140; 97161; 97530; 97535

== ENCOUNTER 2023-12-04 09:46 | Outpatient (CLI) | payer OTHER, MEDICAID, SELFPAY ==
[2023-12-04] VITALS (8 sets, daily range): BP systolic 123–163; BP diastolic 68–98; PULSE 85–99; RESP 14–20; TEMP 36.7; O2SAT 98–100
[2023-12-04] MEDS: MIDAZOLAM 2 MG/2 ML VIAL IV (10:20)
[2023-12-04] MEDS: DEXAMETHASONE 10 MG/ML VIAL INJ (10:24)
[2023-12-04] MEDS: iopamidoL 15 ML VIAL 3 ML INJ (10:24)
--- NOTE | 2023-12-04 10:30 | DI.RAD.S_ITS ---
PROCEDURE: PAIN L/S TRANSFORAMINAL INJECT INDICATIONS: Right L5-S1 transforaminal epidural steroid injection COMPARISON: [facility], CR, XR LUMBAR SPINE MIN 4V, 12/31/2022, 13:51. FINDINGS: Fluoroscopic spot filming was performed to verify placement of spinal needles at the right L5-S1 level(s), as labeled on the films. Appropriate location(s) of the needle tip(s) was confirmed by injection of iodinated contrast. IMPRESSION: Intraoperative guidance provided. Dictated by: David Greene M.D. on 12/04/2023 at 17:18 Approved by: David Greene M.D. on 12/04/2023 at 17:20
--- NOTE | 2023-12-04 11:05 | P.PCN_ITS ---
Date/Time/Diagnoses Date of procedure: 12/04/23 Time of procedure: 10:30 Procedure Notes Physician: Ulysses Sánchez Total Fluoroscopy time (seconds): 23 Total sedation minutes: 12 Procedure in detail & Post-procedure care: Right L5-S1 Transforaminal Epidural Steroid Injection Indications: Patricia is presenting for treatment of lumbar radiculopathy with low back and leg pain. Preoperative diagnosis: Lumbar radiculopathy Postoperative diagnosis: Same Focused Examination: Ax3 Mood and affect are normal Vital Signs: VSS ASA: 2 Consent: Following review of allergies and potential side effects/complications, including, but not necessarily limited to, infection, allergic reaction, local tissue breakdown, stroke, temporary or permanent nerve injury, paralysis, and possible , the patient indicated that they understood and agreed to proceed.? An informed consent document was signed by the patient, witnessed by a nurse and placed in the patient's chart.? Additionally, other treatment options including medications and physical therapy were reviewed with the patient. All questions were answered. Site was then marked. Anesthesia: After review of previous anesthetic history and IV conscious sedat ion, the patient was deemed safe to proceed with today's procedure with IV conscious sedation. IV sedation was accomplished with midazolam 2 mg administered by the RN after order by Dr. Sánchez. Sedation was titrated to patient comfort during the course of the procedure. Patient remained responsive to all verbal commands. Position: Prone Monitoring: NIBP, Pulse oximetry, 3 lead EKG Needle used: 22 gauge, 5 inch spinal needle Contrast: Isovue 300M Injectate: 10 mg Dexamethasone mixed with 1% lidocaine 1 ml and normal saline 1 mL Technique: The skin was prepped with chloraprep and draped in a sterile fashion. Time out was performed as per protocol. Oxygen applied via NC. Skin and subcutaneous structures of the needle entry site were infiltrated with 3mL of lidocaine 1%. Under fluoroscopic guidance, using an ipsilateral oblique view,?a 22 gauge, 5 inch needle was advanced to the base of the L5?pedicle.? The needle was advanced to the superio-posterior aspect of the neural foramen under lateral view.? Oblique and AP views were rechecked. No paresthesias noted by the patient during needle placement. In AP view and utilizing real-time digital subtraction fluoroscopy, 2 ml contrast was slowly injected. Epidural spread was observed without evidence for intravascular nor intrathecal uptake. Contrast spread was seen craniocaudally. The above injectate was then administered without paresthesias and the needle was subsequently withdrawn. Band-Aids applied to injection sites. EBL: less than 1 ml Complications: None Post Procedure: Patient was taken to the recovery and monitored. The patient was provided a Pain Log to continue to record the patient's response to the target- specific procedure prior to the patient's follow-up visit with the referring physician. Patient was stable upon discharge. Detailed post procedure instructions were provided. Patient was asked to call in the event of worsening pain, fever, weakness, numbness or bladder or bowel incontinence.
== END 2023-12-04 10:52 | disposition home or self-care (01) ==
LOC: RAD 09:47
PROVIDERS: Family Provider Family Medicine; PCP Student in an Organized Health Care Education/Training Program; Referring Provider Anesthesiology; Visit Provider Anesthesiology
DX: M54.16 Radiculopathy, lumbar region (principal)
CPT/HCPCS: 64483; 99152; J1100; J2250

== ENCOUNTER → 2024-06-20 11:18 | Outpatient (CLI) | payer OTHER, MEDICAID, SELFPAY ==
--- NOTE | 2024-06-20 11:19 | DI.MG.S_ITS ---
BILATERAL DIGITAL SCREENING MAMMOGRAM 3D/2D WITH CAD: 06/20/2024 CLINICAL: Routine screening. Comparison is made to exams dated: 06/13/2023 mammogram, 12/12/2021 mammogram, and 11/28/2020 mammogram - [facility]. There are scattered areas of fibroglandular density (category b / 25%-50% glandular tissue). Current study was also evaluated with a Computer Aided Detection (CAD) system. No significant masses, calcifications, or other findings are seen in either breast. There has been no significant interval change. IMPRESSION: NEGATIVE There is no mammographic evidence of malignancy. A 1 year screening mammogram is recommended. Based on the Tyrer Cuzick model (a risk assessment model) the patient's lifetime risk is 6.0% and her 10 year risk is 1.3%. According to the ACR, ACS, and NCCN guidelines, an annual breast MRI exam along with mammogram is recommended if the patient's lifetime risk is 20% or greater. This exam was interpreted at Station ID: [id number]. NOTE: For mammograms, a report in lay terms will be sent to the patient. Approximately 15% of breast malignancies will not be visualized mammographically. In the management of a palpable breast mass, a negative mammogram must not discourage biopsy of a clinically suspicious lesion. Electronically Signed By: David martin/chely:06/20/2024 13:17:58 letter sent: Normal Exam ACR BI-RADS Category 1: Negative
== END ==
PROVIDERS: Family Provider Family Medicine; PCP Student in an Organized Health Care Education/Training Program; Referring Provider Student in an Organized Health Care Education/Training Program; Visit Provider Student in an Organized Health Care Education/Training Program
DX: Z12.31 Encounter for screening mammogram for malignant neoplasm of breast (principal)
CPT/HCPCS: 77063; 77067

== ENCOUNTER → 2024-07-07 11:14 | Outpatient (CLI) | payer OTHER, MEDICAID, SELFPAY ==
--- NOTE | 2024-07-07 11:15 | DI.MRI.S_ITS ---
PROCEDURE: MR LUMBAR SPINE WO CON INDICATIONS: Radiculopathy lumbar region TECHNIQUE: Noncontrast sagittal T1 spin echo and T2 fast echo, sagittal STIR, and T2 fast spin echo through the lumbar spine. In cases with scoliosis, additional coronal T2 fast spin echo may be performed. COMPARISON: [facility], MR, MR LUMBAR SPINE WO CON, 08/27/2023, 10:53. FINDINGS: Image quality: Excellent. Alignment and Curvature: There is normal bony alignment. Bone Marrow: Marrow is of normal overall signal. An L5 vertebral body hemangioma can be seen on the right. No acute vertebral body compression fractures. Spinal Cord: Conus medullaris terminates at the T12-L1 level. Visualized cord demonstrates normal signal and size. Paraspinous Soft Tissues: No paravertebral masses. T12-L1: Normal appearance. L1-L2: Normal appearance. L2-L3: Mild loss of disc height is seen. Loss of disc signal is seen. Reactive marrow endplate changes are seen, which demonstrate mixed T1 weighted and T2-weighted signal, and are attributed to a combination of edema and fatty metaplasia (Modic type I and Modic type II changes). Mild generalized disc bulge is seen. Mild facet joint hypertrophy is seen. There is moderate left-sided and mild right-sided neural foraminal narrowing. No significant central canal narrowing is seen. When comparison is made with the prior images, these findings are similar. L3-L4: [id number] loss of disc height and disc signal can be seen. Reactive marrow endplate changes are seen, which demonstrate mixed T1 weighted and T2-weighted signal, and are attributed to a combination of edema and fatty metaplasia (Modic type I and Modic type II changes). Moderate disc bulge is seen, which is eccentric to the left. There is a superimposed central disc protrusion. Moderate facet joint hypertrophy is seen. There is moderate left-sided and no right-sided neural foraminal narrowing. Moderate central canal narrowing is seen. When comparison is made with the prior images, these findings are similar. L4-L5: At least moderate loss of disc height and disc signal can be seen on the right. Reactive marrow endplate changes are seen, which are hyperintense on T1-weighted and T2-weighted imaging and most consistent with fatty metaplasia (Modic type II changes). Moderate disc bulge is seen, which is eccentric to the right. There is moderate bilateral neural foraminal narrowing, right worse than left. There is moderate left-sided and at least moderate right-sided neural foraminal narrowing. There is a mild degree of compression seen upon the exiting left L4 nerve root. Moderate central canal narrowing is seen. When comparison is made with the prior images, these findings are similar. L5-S1: The disc height is well-preserved. Loss of disc signal is seen at this level. Mild generalized disc bulge is seen. Mild to moderate facet hypertrophy is seen. There is moderate to severe right-sided neural foraminal narrowing, with a degree of compression upon the exiting right L5 nerve root. There is mild left-sided neural foraminal narrowing. No significant central canal narrowing is seen. No significant change from the prior. 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 No significant progression compared to 2022. Dictated by: Elijah Blackmon M.D. on 07/07/2024 at 14:33 Approved by: Elijah Blackmon M.D. on 07/07/2024 at 14:38
== END ==
LOC: MRI 11:14
PROVIDERS: Family Provider Family Medicine; PCP Student in an Organized Health Care Education/Training Program; Referring Provider Orthopaedic Surgery Orthopaedic Surgery of the Spine; Visit Provider Orthopaedic Surgery Orthopaedic Surgery of the Spine
DX: M47.26 Other spondylosis with radiculopathy, lumbar region (principal); M47.27 Other spondylosis with radiculopathy, lumbosacral region
CPT/HCPCS: 72148

== ENCOUNTER → 2025-06-23 13:30 | Outpatient (CLI) | payer OTHER, SELFPAY ==
--- NOTE | 2025-06-23 13:32 | DI.MG.S_ITS ---
MM screening mammo BI: 06/23/2025. BI-RADS: 1 CLINICAL: 49-year old female for bilateral screening mammogram. Tyrer-Cuzick lifetime risk of 6.0%. No personal or first-degree family history of breast cancer. PRIOR EXAMS: 06/20/2024, 06/13/2023, 12/12/2021, 12/19/2020, 11/28/2020, 10/14/2019, 09/30/2019. MAMMOGRAPHY TECHNIQUE: 2D and 3D (tomosynthesis) digital mammographic views obtained, with additional images as needed for full coverage. Current study was also evaluated with a Computer Aided Detection (CAD) system. DENSITY B. There are scattered areas of fibroglandular density. MAMMOGRAPHY FINDINGS Bilateral: No suspicious mass, asymmetry, microcalcification, or other abnormality seen. IMPRESSION: * No evidence of malignancy. RECOMMENDATIONS Bilateral * Annual screening mammography. OVERALL ASSESSMENT CATEGORY BI-RADS-1: Negative. The [employer] recommends annual screening mammography beginning at age 40 for women with average risk of breast cancer. ELECTRONICALLY SIGNED: Aura Zhou M.D. on 06/23/2025 at 04:17:59 PM PT Interpreting Station ID: [id number]
== END ==
LOC: MAMMO 13:31
PROVIDERS: Family Provider Family Medicine; PCP Student in an Organized Health Care Education/Training Program; Referring Provider Student in an Organized Health Care Education/Training Program; Visit Provider Student in an Organized Health Care Education/Training Program
DX: Z12.31 Encounter for screening mammogram for malignant neoplasm of breast (principal)
CPT/HCPCS: 77063; 77067